=== PATIENT | male | born 1960 | race Caucasian/White ===

== ENCOUNTER 2020-10-05 14:21 | Outpatient (REF) | payer OTHER, SELFPAY ==
[2020-10-05 15:16] LABS: Influenza A PCR NEGATIVE (Negative); Influenza B PCR NEGATIVE (Negative); Resp Syncy Virus RNA Qual PCR NEGATIVE (Negative); SARS COV2 PCR INHOUSE NEGATIVE (Negative)
== END 2020-10-05 14:22 | disposition home or self-care (01) ==
LOC: HO.LNP 14:21
PROVIDERS: Visit Provider Internal Medicine
DX: R05 Cough (principal); R09.89 Other specified symptoms and signs involving the circulatory and respiratory systems; Z20.822 Contact with and (suspected) exposure to COVID-19
CPT/HCPCS: 0241U

== ENCOUNTER 2020-10-06 09:30 | Outpatient (REF) | payer OTHER, SELFPAY ==
[2020-10-06 10:07] LABS: MANUAL DIFF FLAG NO
[2020-10-06 10:12] LABS: Basophils Absolute Auto 0.1 X10*3/uL (0.0-0.2); Basophils Percent Auto 0.7 % (0-2); Eosinophils Absolute Auto 0.4 X10*3/uL (0.0-0.4); Hematocrit 48.3 % (42-52); Hemoglobin 16.4 g/dl (14.0-18.0); Imm Gran Abs Auto 0.02 X10*3/uL (0.00-0.03); Imm Gran Pct Auto 0.3 % (0.0-0.4); Lymphocytes Absolute Auto 1.8 X10*3/uL (1.2-4.9); Lymphocytes Percent Auto 24.8 % (20-40); Mean Corpuscular Hemoglobin 29.9 pg (27.0-33.0); Mean Platelet Volume 9.9 fL (9.4-12.4); Monocytes Absolute Auto 0.6 X10*3/uL (0.1-1.2); Monocytes Percent Auto 7.9 % (2-11); Neutrophils Absolute Auto 4.3 X10*3/uL (2.0-8.3); Neutrophils Percent Auto 60.3 % (45-73); Platelet Count 259 X10*3/uL (160-400); Red Blood Count 5.49 X10*6/uL (4.60-5.80); Red Cell Distribution Width 12.4 % (11.0-16.0); White Blood Count 7.1 X10*3/uL (4.8-10.8)
[2020-10-06 10:42] LABS: Alanine Aminotransferase 26 U/L (0-40); Albumin Level 4.9 g/dL (3.5-5.0); Alkaline Phosphatase 58 U/L (39-117); Anion Gap 14 (12-20); Aspartate Amino Transferase 19 U/L (5-37); Bilirubin Total 0.5 mg/dL (0.0-1.0); Blood Urea Nitrogen 14 mg/dL (9-16); Calcium 9.1 mg/dL (8.4-10.2); Carbon Dioxide 27 mmol/L (22-29); Chloride 103 mmol/L (96-108); Cholesterol 323 mg/dL; Estimated Glomerular Filt Rate > 60; Glucose Fasting 131 mg/dL (60-99); HDL Cholesterol 38 mg/dL; LDL Cholesterol Calculated 221 mg/dl; Potassium 4.6 mmol/l (3.3-5.1); Sodium 139 mmol/L (135-145); Total Protein 7.4 g/dL (6.5-8.0); Triglycerides 322 mg/dL
[2020-10-06 11:02] LABS: Prostate Specific Antigen 1.39 ng/mL (<0.05-4.0)
== END 2020-10-06 09:31 | disposition home or self-care (01) ==
LOC: HO.LAB 09:30
PROVIDERS: PCP Internal Medicine; Visit Provider Internal Medicine
DX: Z00.00 Encounter for general adult medical examination without abnormal findings (principal); Z12.5 Encounter for screening for malignant neoplasm of prostate
CPT/HCPCS: 36415; 80053; 80061; 84153; 85025

== ENCOUNTER → 2020-12-30 12:43 | Outpatient (BNVA) | payer OTHER, SELFPAY | PROVIDERS: PCP Internal Medicine; Visit Provider Surgery ==

== ENCOUNTER 2021-01-06 13:23 | Outpatient (REF) | payer OTHER, SELFPAY ==
--- NOTE | ~2021-01-06 | US_ITS ---
EXAMINATION: US right inguinal region, soft tissue. CLINICAL INFORMATION: Pain, strain COMPARISON: None available at the time of this dictation. TECHNIQUE: High-frequency linear transducer ultrasound utilized, area of interest scanned, right inguinal region. FINDINGS: No ultrasound evidence of soft tissue mass, cyst or abscess, or abnormal distortion. Patient had a mesh from prior hernia repair. US/US pelvic limited IMPRESSION: No ultrasound evidence of hernia recurrence. Ultrasound has limited role assessing muscles, MRI could be utilized to assess for possible muscle strain if clinically indicated.
== END 2021-01-06 13:24 | disposition home or self-care (01) ==
LOC: HO.US 13:23
PROVIDERS: PCP Internal Medicine; Visit Provider Surgery
DX: S39.011A Strain of muscle, fascia and tendon of abdomen, initial encounter (principal)
CPT/HCPCS: 76857

== ENCOUNTER 2021-05-16 10:04 | Outpatient (REF) | payer OTHER, SELFPAY ==
[2021-05-16 12:55] LABS: MANUAL DIFF FLAG NO
[2021-05-16 13:10] LABS: Glucose Urine UA NEG (NEG); Leukocyte Esterase Urine NEG (NEG); Nitrite Urine NEG (NEG); Urine Blood NEG (NEG); Urine Ketones NEG (NEG); Urine Protein NEG (NEG-TRACE)
[2021-05-16 13:13] LABS: Appearance Urine CLEAR; Color Urine YELLOW
[2021-05-16 13:14] LABS: Basophils Absolute Auto 0.1 X10*3/uL (0.0-0.2); Eosinophils Absolute Auto 0.4 X10*3/uL (0.0-0.4); Eosinophils Percent Auto 6.5 % (0-4); Hematocrit 43.9 % (42-52); Hemoglobin 15.1 g/dl (14.0-18.0); Imm Gran Abs Auto 0.03 X10*3/uL (0.00-0.03); Imm Gran Pct Auto 0.5 % (0.0-0.4); Lymphocytes Percent Auto 31.8 % (20-40); Mean Corpuscular HGB Conc 34.4 g/dl (31.0-36.0); Mean Corpuscular Hemoglobin 29.7 pg (27.0-33.0); Mean Corpuscular Volume 86.4 fL (80-98); Mean Platelet Volume 10.8 fL (9.4-12.4); Monocytes Absolute Auto 0.4 X10*3/uL (0.1-1.2); Monocytes Percent Auto 6.7 % (2-11); Neutrophils Absolute Auto 3.4 X10*3/uL (2.0-8.3); Neutrophils Percent Auto 53.5 % (45-73); Platelet Count 241 X10*3/uL (160-400); Red Blood Count 5.08 X10*6/uL (4.60-5.80); Red Cell Distribution Width 12.5 % (11.0-16.0); White Blood Count 6.3 X10*3/uL (4.8-10.8)
[2021-05-16 13:45] LABS: Alanine Aminotransferase 21 U/L (0-40); Albumin Level 4.5 g/dL (3.5-5.0); Alkaline Phosphatase 46 U/L (39-117); Anion Gap 14 (12-20); Aspartate Amino Transferase 18 U/L (5-37); Bilirubin Total 0.6 mg/dL (0.0-1.0); Blood Urea Nitrogen 15 mg/dL (9-16); Calcium 9.1 mg/dL (8.4-10.2); Carbon Dioxide 23 mmol/L (22-29); Chloride 108 mmol/L (96-108); Cholesterol 303 mg/dL; Estimated Glomerular Filt Rate > 60; Glucose Random 121 mg/dL (60-115); HDL Cholesterol 35 mg/dL; Lipase 24 U/L (8-78); Potassium 4.4 mmol/L (3.3-5.1); Sodium 141 mmol/L (135-145); Total Protein 6.9 g/dL (6.5-8.0); Triglycerides 430 mg/dL
== END 2021-05-16 10:05 | disposition home or self-care (01) ==
LOC: HO.LAB 10:04
PROVIDERS: PCP Internal Medicine; Visit Provider Internal Medicine
DX: I10 Essential (primary) hypertension (principal); R14.0 Abdominal distension (gaseous); R63.5 Abnormal weight gain; E78.5 Hyperlipidemia, unspecified
CPT/HCPCS: 36415; 80053; 80061; 81003; 83690; 84443; 85025

== ENCOUNTER 2021-06-27 16:07 | Outpatient (REF) | payer OTHER, SELFPAY ==
--- NOTE | ~2021-06-27 | XR_ITS ---
EXAMINATION: XR LUMBOSACRAL SPINE CLINICAL INFORMATION: Left sciatic pain COMPARISON: Previous x-ray November 2013 TECHNIQUE: Three views of the lumbosacral spine. FINDINGS: Bone alignment is normal. No fracture or dislocation is seen. There is degenerative disc disease at L5-S1. There is lower lumbar spine facet arthritis. There is spondylosis of the visualized lower thoracic spine. XR/XR lumbar spine 2-3V IMPRESSION: L5-S1 degenerative disc disease and lower lumbar spine facet arthritis
== END 2021-06-27 16:08 | disposition home or self-care (01) ==
LOC: HO.XRAY 16:07
PROVIDERS: PCP Internal Medicine; Visit Provider Internal Medicine
DX: M54.9 Dorsalgia, unspecified (principal)
CPT/HCPCS: 72100

== ENCOUNTER 2021-11-01 23:27 | Emergency (ER) | payer OTHER, SELFPAY ==
--- NOTE | ~2021-11-01 | CT_ITS ---
EXAMINATION: CT ANGIOGRAM OF THE CHEST; CT ANGIOGRAM OF THE ABDOMEN AND PELVIS INDICATION: Chest and abdominal pain, nausea/vomiting COMPARISON: None TECHNIQUE: 100 mL Omnipaque 350 IV contrast was utilized. Multidetector helical imaging was performed through the chest, abdomen, and pelvis. Coronal and sagittal reformatted images were created at the technologist workstation along with MIP images. DLP: 806 mGy-cm DOSE LOWERING TECHNIQUES: This CT examination was performed using dose optimization techniques as appropriate, variously including the following: - Automated exposure control - Adjustment of mA and/or kV according to patient size (this includes techniques or standardized protocols for targeted exams were dose is matched to indication/reason for exam; i.e. extremities or head) - Use of iterative reconstruction technique FINDINGS: Chest: There is suboptimal assessment of the proximal aorta due to motion artifact, though no suspicious findings are seen to strongly suggest aortic dissection. The thoracic aorta appears normal in caliber. Central pulmonary arteries appear opacified. No regions of consolidation bilaterally. There is a subpleural 4 mm right middle lobe nodule on image [id number]. No pneumothorax or pleural effusion. Visualized thyroid gland appears grossly unremarkable. There are subcentimeter mediastinal lymph nodes within the range of normal variation. Cardiac size is within normal limits; no pericardial effusion. Coronary artery calcifications are present. No axillary lymphadenopathy is present. Abdomen/Pelvis: The liver is homogeneous in attenuation without intrahepatic biliary ductal dilatation. The gallbladder is unremarkable. The spleen, pancreas, and adrenal glands are within normal limits. Bilateral nephrograms are symmetric. No hydronephrosis. No obstructing renal or ureteral calculi are present. The urinary bladder is unremarkable. The prostate and seminal vesicles are unremarkable. Small fat-containing left inguinal hernia. No evidence of bowel obstruction. There is a short segment of pericolonic inflammation adjacent to diverticula of the proximal sigmoid colon in the left lower quadrant, suspicious for diverticulitis. No pericolonic abscess or free air is seen. The appendix is unremarkable. No free fluid identified. The vascular structures are unremarkable, without evidence of aortic dissection or aneurysm. No retroperitoneal or pelvic lymphadenopathy is seen. Degenerative changes are noted in the spine. CT/CT angio abdomen pelvis IMPRESSION: 1. Diverticulitis of the proximal sigmoid colon. 2. No acute aortic abnormality. 3. Coronary artery calcifications. Correlation with cardiac risk factors is recommended. 4. Nonspecific 4 mm right middle lobe subpleural lung nodule. According to the UPDATED 2017 Fleischner Society recommendations, the advised follow-up imaging for solid nodules < 6 mm is: LOW RISK PATIENT: No routine follow-up. HIGH RISK PATIENT: Optional CT at 12 months.
[2021-11-01 23:31] VITALS: BP 145/84; PULSE 70; RESP 22; O2SAT 99; BMI 33.9
--- NOTE | 2021-11-01 23:33 | ECG_ITS ---
Test Reason : cp Blood Pressure : / mmHG Vent. Rate : 071 BPM Atrial Rate : 071 BPM P-R Int : 140 ms QRS Dur : 096 ms QT Int : 372 ms P-R-T Axes : 048 -24 034 degrees QTc Int : 404 ms Normal sinus rhythm Nonspecific ST and T wave abnormality Abnormal ECG When compared with ECG of 30-OCT-2002 09:54, Nonspecific T wave abnormality now evident in Anterolateral leads Referred By: Generic ED Physician Electronically Signed By:YASMINE MORRISON
[2021-11-02] VITALS (8 sets, daily range): BP systolic 132–147; BP diastolic 81–84; PULSE 70–82; RESP 16–24; O2SAT 97–99
--- NOTE | 2021-11-02 00:07 | ED_ITS ---
HPI - Chest Pain General Chief Complaint: Chest Pain <MATHIEU Garcia Last Filed: 11/02/21 01:51> Stated Complaint: Chest pain <MATHIEU Garcia Last Filed: 11/02/21 01:51> Time Seen by Provider: 11/01/21 23:45 <MATHIEU Garcia Last Filed: 11/02/21 01:51> Source: patient <MATHIEU Garcia Last Filed: 11/02/21 01:51> History of Present Illness HPI narrative: 61-year-old male with a past medical history of depression, hyperlipidemia, hypertension, presenting to the ED complaining of sudden onset and substernal chest pain radiating to back with associated abdominal pain/bloating, nausea, and 5 episodes of nonbloody emesis. Also reports bilateral arm weakness, and lightheadedness which is improving at present. Reports symptoms started at rest. Denies fever, chills, cough, SOB, diarrhea, pedal edema. Denies taking AC <MATHIEU Garcia - Last Filed: 11/02/21 01:51> MD complaint: chest pain <MATHIEU Garcia Last Filed: 11/02/21 01:51> Onset (ago): hour(s) <MATHIEU Garcia Last Filed: 11/02/21 01:51> Prior episodes: No <MATHIEU Garcia Last Filed: 11/02/21 01:51> Onset: during rest <MATHIEU Garcia Last Filed: 11/02/21 01:51> Pain location: substernal <MATHIEU Garcia Last Filed: 11/02/21 01:51> Related Data Home Medications: Home Medications Medication Instructions Recorded Confirmed atorvastatin 20 mg tablet (Lipitor) 20 mg PO DAILY 12/30/20 12/30/20 escitalopram oxalate 20 mg tablet 20 mg PO DAILY 12/30/20 12/30/20 (Lexapro) gemfibrozil 600 mg tablet 600 mg PO DAILY 12/30/20 12/30/20 lisinopril 10 mg tablet 10 mg PO DAILY 12/30/20 12/30/20 Previous Rx's Medication Instructions Recorded ciprofloxacin HCl 500 mg tablet 500 mg PO BID 7 Days #14 tab 11/02/21 (Cipro) metoclopramide HCl 10 mg tablet 10 mg PO Q6H PRN #10 tab 11/02/21 (Reglan) metronidazole 500 mg tablet 500 mg PO Q8H 7 Days #21 tab 11/02/21 <MATHIEU Garcia - Last Filed: 11/02/21 01:51> Allergies/Adverse Reactions: Allergies Allergy/AdvReac Type Severity Reaction Status Date / Time From PERCOCET AdvReac Mild N/V Uncoded 06/17/20 15:08 <MATHIEU Garcia - Last Filed: 11/02/21 01:51> Review of Systems Verdana 4l Review of Systems: Verdana 4d Verdana 4d Constitutional:No Fever, No Chills, No Fatigue, No Malaise ENT/Mouth: No Ear Pain, No Nasal Congestion, No Hoarseness, No sore throat, No Rhinorrhea, No Swallowing Difficulty Eyes: No Eye Pain, No Swelling, No Redness, No Vision Changes CardiovascularCardiovascular: + Chest Pain, No SOB, No Edema, No Palpitations Respiratory: No Cough, No Smoke Exposure, No Dyspnea Gastrointestinal: + Nausea, + Vomiting, No Diarrhea, No Constipation, + Abdominal pain Genitourinary: No Dysuria, No Urinary Frequency, No Hematuria, No Flank Pain Musculoskeletal: +back pain, No Myalgias, No Joint Swelling Skin: No Skin Lesions, No rash Neuro: + Weakness, No Numbness, No Paresthesias, No Loss of Consciousness, + lightheadedness/ Dizziness, No Headache <MATHIEU Garcia - Last Filed: 11/02/21 01:51> Yes all other systems are reviewed and are negative <MATHIEU Garcia - Last Filed: 11/02/21 01:51> FOR[facility]LY [facility] Past Medical History Attestation statement: The following information was validated with the patient. <MATHIEU Garcia Last Filed: 11/02/21 01:51> Medical History: Medical History Depression Hypercholesteremia Hypertension <MATHIEU Garcia Last Filed: 11/02/21 01:51> Surgical History: Surgical History History of elbow surgery History of right inguinal hernia repair <MATHIEU Garcia - Last Filed: 11/02/21 01:51> Family History Family History: Family History Father Bladder cancer Myocardial infarct Paternal Grandmother Myocardial infarct <MATHIEU Garcia - Last Filed: 11/02/21 01:51> Social History Social History: Social History Alcohol intake: never Patient Tobacco Use Status: Never used Tobacco Smoked in Last 30 Days: No Use of substances other than those prescribed or required for medical reasons: No Advance Directives: No <MATHIEU Garcia - Last Filed: 11/02/21 01:51> Physical Exam Verdana 4l Vital Signs: Verdana 4d Verdana 4d Vital Signs: Verdana 4d Verdana 4Bd Last Vital Signs Verdana 4d [employer] 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 Pulse 82 11/02/21 03:23 [employer] New 4d Resp 16 11/02/21 03:23 [employer]uttle [employer] New 4d BP 132/81 11/02/21 03:23 Pulse Ox 97 11/02/21 03:23 BMI result Body Mass Index 33.9 <MATHIEU Garcia - Last Filed: 11/02/21 01:51> Vital Signs: Last Vital Signs Pulse 82 11/02/21 03:23 Resp 16 11/02/21 03:23 BP 132/81 11/02/21 03:23 Pulse Ox 97 11/02/21 03:23 BMI result Body Mass Index 33.9 <Julia Craft MD - Last Filed: 11/02/21 03:52> Const: Other: pale <MATHIEU Garcia - Last Filed: 11/02/21 01:51> General: cooperative and anxious <MATHIEU Garcia - Last Filed: 11/02/21 01:51> Nutritional Appearance: overweight <MATHIEU Garcia - Last Filed: 11/02/21 01:51> Orientation/consciousness: patient oriented x3 <MATHIEU Garcia - Last Filed: 11/02/21 01:51> Limitations: no limitations <Keke Careydilia PA - Last Filed: 11/02/21 01:51> HENMT: Head: Yes normal to inspection and Yes atraumatic <Kekerosa maria Careydilia PA - Last Filed: 11/02/21 01:51> Ears: hearing grossly normal bilaterally <Keke Aureliodilia NC - Last Filed: 11/02/21 01:51> General nose exam: Normal external nose present <Keke Aureliodilia PA - Last Filed: 11/02/21 01:51> Face and sinus: Yes normal facial exam <Keke Aureliodilia NC - Last Filed: 11/02/21 01:51> Eyes: General: appearance normal, both eyes and all related structures <Keke Aureliodilia NC - Last Filed: 11/02/21 01:51> EOM: EOMs intact bilaterally <Keke Aureliodilia NC - Last Filed: 11/02/21 01:51> Neck: Neck: Yes normal visual inspection and Yes no meningeal signs <Keke Aureliodilia PA - Last Filed: 11/02/21 01:51> Resp: Effort & Inspection: normal respiratory effort <Keke Aureliodilia PA - Last Filed: 11/02/21 01:51> Auscultation: clear to auscultation bilaterally, no rales, no rhonchi and no wheezes <Keke Aureliodilia PA - Last Filed: 11/02/21 01:51> Cardio: Rate: regular rate <Keke Aureliodilia PA - Last Filed: 11/02/21 01:51> Heart sounds: S1 normal heart sound present and S2 normal heart sound present <Keke Aureliodilia PA - Last Filed: 11/02/21 01:51> Peripheral pulses: Peripheral pulses 2+ throughout <Keke Aureliodilia PA - Last Filed: 11/02/21 01:51> GI: Inspection: Yes normal to inspection <Keke Aureliodilia PA - Last Filed: 11/02/21 01:51> Palpation (GI): Soft to palpation, Tenderness to palpation present (GI) (diffusely) in the RLQ and in the LUQ, no guarding and not rigid <MATHIEU Garcia - Last Filed: 11/02/21 01:51> : General: Yes no CVA tenderness <MATHIEU Garcia - Last Filed: 11/02/21 01:51> Back/Spine/Pelvis: Back: no CVA tenderness <Keke Vasquez PA - Last Filed: 11/02/21 01:51> Skin: Rashes: no rashes <Keke Vasquez PA - Last Filed: 11/02/21 01:51> Wounds: no wounds <Keke Vasquez PA - Last Filed: 11/02/21 01:51> Neuro: General: patient oriented x3, tone normal, moves all extremities and no meningeal signs <MATHIEU Garcia - Last Filed: 11/02/21 01:51> Cognition (Neuro): normal cognition <MATHIEU Garcia - Last Filed: 11/02/21 01:51> Gait exam (Neuro): Normal gait present <MATHIEU Garcia - Last Filed: 11/02/21 01:51> Extrem: General: Yes normal to inspection and Yes no pedal edema <MATHIEU Garcia - Last Filed: 11/02/21 01:51> Course Course Course Narrative: -1328--no leukocytosis. H&H stable. Labs otherwise unremarkable. Initial troponin negative > obtain 3 hour repeat -0132--CT angio chest aorta / CT angio abdomen pelvis IMPRESSION: 1.? Diverticulitis of the proximal sigmoid colon. 2.? No acute aortic abnormality. 3.? Coronary artery calcifications. Correlation with cardiac risk factors is recommended. 4.? Nonspecific 4 mm right middle lobe subpleural lung nodule. According to the UPDATED 2017 Fleischner Society recommendations, the advised follow-up imaging for solid nodules < 6 mm is: ?? LOW RISK PATIENT: No routine follow-up. ?? HIGH RISK PATIENT: Optional CT at 12 months. > infection now suspected. Low concern for severe sepsis. Will obtain lacti c/blood cultures. Will give dose of IV Levaquin and Flagyl. -0150--on re-evaluation patient is sleeping comfortably, reports symptomatic improvement after pain medication. Results discussed. -0200--ED care transferred to Dr. Craft pending repeat troponin at 3:30AM, UA, lactic/cultures, re-evaluation/p.o. challenge <MATHIEU Garcia - Last Filed: 11/02/21 01:51> Reevaluation(s) Reevaluation #1: Patient feeling better, no chest pain or shortness of breath, troponin 2. Negative EKG: Normal sinus rhythm, heart rate 71, no ST segment depression or elevation, no T-wave inversion. QTC 404 <Julia Craft MD - Last Filed: 11/02/21 03:52> MDM - Chest Pain MDM Narrative Medical decision making narrative: 61-year-old male with a past medical history of depression, hyperlipidemia, hypertension, presenting to the ED complaining of sudden onset and substernal chest pain radiating to back with associated abdominal pain/bloating, nausea, and 5 episodes of nonbloody emesis. On exam tachypneic, pale, anxious, lungs CTA, abdomen soft diffusely tender, no rebound or guarding. No appreciable weakness, pulses equal and intact throughout. Concern for dissection vs AAA vs ACS vs intra-abdominal pathology including pancreatitis/appendicitis/cholecystitis Plan: EKG, labs, UA, CT chest/abdomen angio, pain control, re-evaluate <MATHIEU Garcia - Last Filed: 11/02/21 01:51> Differential Diagnosis Differential diagnosis: Likely atypical chest pain <MATHIEU Garcia - Last Filed: 11/02/21 01:51> Medical Records Data Attestation: I reviewed the patient's medical records. <MATHIEU Garcia - Last Filed: 11/02/21 01:51> Lab Data Attestation: I reviewed the patient's lab results. <MATHIEU Garcia - Last Filed: 11/02/21 01:51> Result diagrams: : 11/02/21 00:34 11/02/21 00:34 <MATHIEU Garcia - Last Filed: 11/02/21 01:51> Labs: Lab Results 11/02/21 11/02/21 11/02/21 Range/Units 00:34 00:34 00:34 WBC 10.6 (4.8-10.8) X10*3/uL RBC 4.80 (4.60-5.80) X10*6/uL Hgb 14.0 (14.0-18.0) g/dl Hct 40.3 L (42.0-52.0) % MCV 84.0 (80.0-98.0) fL MCH 29.2 (27.0-33.0) pg MCHC 34.7 (31.0-36.0) g/dl RDW 12.4 (11.0-16.0) % Plt Count 294 (160-400) X10*3/uL MPV 9.4 (9.4-12.4) fL Immature Gran % (Auto) 0.2 (0.0-0.4) % Neut % (Auto) 82.9 H (45-73) % Lymph % (Auto) 12.0 L (20-40) % [place] % (Auto) 3.9 (2-11) % Eos % (Auto) 0.5 (0-4) % Baso % (Auto) 0.5 (0-2) % Lymph # (Auto) 1.3 (1.2-4.9) X10*3/uL [place] # (Auto) 0.4 (0.1-1.2) X10*3/uL Eos # (Auto) 0.1 (0.0-0.4) X10*3/uL Baso # (Auto) 0.1 (0.0-0.2) X10*3/uL Abs Immat Gran (auto) 0.02 (0.00-0.03) X10*3/uL Absolute Neuts (auto) 8.8 H (2.0-8.3) x10*3/uL Absolute Nucleated RBC 0.000 (0.0-0.012) X10*3/uL Nucleated RBC % (auto) 0.0 (0.0-0.2) /100WBC PT (9.9-13.0) SEC INR (0.9-1.1) APTT (24.1-38.0) SEC Sodium 136 (135-145) mmol/L Potassium 3.6 (3.3-5.1) mmol/L Chloride 104 (96-108) mmol/L Carbon Dioxide 21 L (22-29) mmol/L Anion Gap 15 (12-20) BUN 16 (9-16) mg/dL Creatinine 1.01 (0.5-1.4) mg/dL Estim Creat Clear Calc 102.3 Estimated GFR > 60 Random Glucose 187 H D (60-115) mg/dL Lactic Acid (0.5-2.0) mmol/L Calcium 9.3 (8.4-10.2) mg/dL Magnesium 2.2 (1.6-2.6) mg/dL Total Bilirubin 0.5 (0.0-1.0) mg/dL Direct Bilirubin 0.2 (0.0-0.5) mg/dL AST 16 (5-37) U/L ALT 18 (0-40) U/L Alkaline Phosphatase 50 (39-117) U/L Troponin I High Sens < 3.5 (<3.5-35.0) ng/L B-Natriuretic Peptide < 10 (<100) pg/mL Total Protein 6.8 (6.5-8.0) g/dL Albumin 4.4 (3.5-5.0) g/dL Lipase 29 (8-78) U/L Urine Color Urine Appearance Urine pH (5.0-8.0) Ur Specific Reading (1.005-1.025) Urine Protein (NEG-TRACE) MG/DL Urine Glucose (UA) (NEG) MG/DL Urine Ketones (NEG) MG/DL Urine Blood (NEG) Urine Nitrite (NEG) Ur Leukocyte Esterase (NEG) COVID-19 (MAY) (Negative) COVID-19 Clin Com Blood Type Antibody Screen 11/02/21 11/02/21 11/02/21 Range/Units 00:34 00:34 01:01 WBC (4.8-10.8) X10*3/uL RBC (4.60-5.80) X10*6/uL Hgb (14.0-18.0) g/dl Hct (42.0-52.0) % MCV (80.0-98.0) fL MCH (27.0-33.0) pg MCHC (31.0-36.0) g/dl RDW (11.0-16.0) % Plt Count (160-400) X10*3/uL MPV (9.4-12.4) fL Immature Gran % (Auto) (0.0-0.4) % Neut % (Auto) (45-73) % Lymph % (Auto) (20-40) % [place] % (Auto) (2-11) % Eos % (Auto) (0-4) % Baso % (Auto) (0-2) % Lymph # (Auto) (1.2-4.9) X10*3/uL [place] # (Auto) (0.1-1.2) X10*3/uL Eos # (Auto) (0.0-0.4) X10*3/uL Baso # (Auto) (0.0-0.2) X10*3/uL Abs Immat Gran (auto) (0.00-0.03) X10*3/uL Absolute Neuts (auto) (2.0-8.3) x10*3/uL Absolute Nucleated RBC (0.0-0.012) X10*3/uL Nucleated RBC % (auto) (0.0-0.2) /100WBC PT 12.4 (9.9-13.0) SEC INR 1.1 (0.9-1.1) APTT 34.2 (24.1-38.0) SEC Sodium (135-145) mmol/L Potassium (3.3-5.1) mmol/L Chloride (96-108) mmol/L Carbon Dioxide (22-29) mmol/L Anion Gap (12-20) BUN (9-16) mg/dL Creatinine (0.5-1.4) mg/dL Estim Creat Clear Calc Estimated GFR Random Glucose (60-115) mg/dL Lactic Acid (0.5-2.0) mmol/L Calcium (8.4-10.2) mg/dL Magnesium (1.6-2.6) mg/dL Total Bilirubin (0.0-1.0) mg/dL Direct Bilirubin (0.0-0.5) mg/dL AST (5-37) U/L ALT (0-40) U/L Alkaline Phosphatase (39-117) U/L Troponin I High Sens (<3.5-35.0) ng/L B-Natriuretic Peptide (<100) pg/mL Total Protein (6.5-8.0) g/dL Albumin (3.5-5.0) g/dL Lipase (8-78) U/L Urine Color Urine Appearance Urine pH (5.0-8.0) Ur Specific Reading (1.005-1.025) Urine Protein (NEG-TRACE) MG/DL Urine Glucose (UA) (NEG) MG/DL Urine Ketones (NEG) MG/DL Urine Blood (NEG) Urine Nitrite (NEG) Ur Leukocyte Esterase (NEG) COVID-19 (MAY) Negative (Negative) COVID-19 Clin Com See Note Blood Type O Positive Antibody Screen NEGATIVE 11/02/21 11/02/21 11/02/21 Range/Units 02:03 02:34 02:34 WBC (4.8-10.8) X10*3/uL RBC (4.60-5.80) X10*6/uL Hgb (14.0-18.0) g/dl Hct (42.0-52.0) % MCV (80.0-98.0) fL MCH (27.0-33.0) pg MCHC (31.0-36.0) g/dl RDW (11.0-16.0) % Plt Count (160-400) X10*3/uL MPV (9.4-12.4) fL Immature Gran % (Auto) (0.0-0.4) % Neut % (Auto) (45-73) % Lymph % (Auto) (20-40) % [place] % (Auto) (2-11) % Eos % (Auto) (0-4) % Baso % (Auto) (0-2) % Lymph # (Auto) (1.2-4.9) X10*3/uL [place] # (Auto) (0.1-1.2) X10*3/uL Eos # (Auto) (0.0-0.4) X10*3/uL Baso # (Auto) (0.0-0.2) X10*3/uL Abs Immat Gran (auto) (0.00-0.03) X10*3/uL Absolute Neuts (auto) (2.0-8.3) x10*3/uL Absolute Nucleated RBC (0.0-0.012) X10*3/uL Nucleated RBC % (auto) (0.0-0.2) /100WBC PT (9.9-13.0) SEC INR (0.9-1.1) APTT (24.1-38.0) SEC Sodium (135-145) mmol/L Potassium (3.3-5.1) mmol/L Chloride (96-108) mmol/L Carbon Dioxide (22-29) mmol/L Anion Gap (12-20) BUN (9-16) mg/dL Creatinine (0.5-1.4) mg/dL Estim Creat Clear Calc Estimated GFR Random Glucose (60-115) mg/dL Lactic Acid 0.9 (0.5-2.0) mmol/L Calcium (8.4-10.2) mg/dL Magnesium (1.6-2.6) mg/dL Total Bilirubin (0.0-1.0) mg/dL Direct Bilirubin (0.0-0.5) mg/dL AST (5-37) U/L ALT (0-40) U/L Alkaline Phosphatase (39-117) U/L Troponin I High Sens < 3.5 (<3.5-35.0) ng/L B-Natriuretic Peptide (<100) pg/mL Total Protein (6.5-8.0) g/dL Albumin (3.5-5.0) g/dL Lipase (8-78) U/L Urine Color YELLOW Urine Appearance CLEAR Urine pH 7.0 (5.0-8.0) Ur Specific Reading <= 1.005 (1.005-1.025) Urine Protein NEG (NEG-TRACE) MG/DL Urine Glucose (UA) NEG (NEG) MG/DL Urine Ketones 5 (NEG) MG/DL Urine Blood NEG (NEG) Urine Nitrite NEG (NEG) Ur Leukocyte Esterase NEG (NEG) COVID-19 (MAY) (Negative) COVID-19 Clin Com Blood Type Antibody Screen <MATHIEU Garcia - Last Filed: 11/02/21 01:51> Lab Results 11/02/21 11/02/21 11/02/21 Range/Units 00:34 00:34 00:34 WBC 10.6 (4.8-10.8) X10*3/uL RBC 4.80 (4.60-5.80) X10*6/uL Hgb 14.0 (14.0-18.0) g/dl Hct 40.3 L (42.0-52.0) % MCV 84.0 (80.0-98.0) fL MCH 29.2 (27.0-33.0) pg MCHC 34.7 (31.0-36.0) g/dl RDW 12.4 (11.0-16.0) % Plt Count 294 (160-400) X10*3/uL MPV 9.4 (9.4-12.4) fL Immature Gran % (Auto) 0.2 (0.0-0.4) % Neut % (Auto) 82.9 H (45-73) % Lymph % (Auto) 12.0 L (20-40) % [place] % (Auto) 3.9 (2-11) % Eos % (Auto) 0.5 (0-4) % Baso % (Auto) 0.5 (0-2) % Lymph # (Auto) 1.3 (1.2-4.9) X10*3/uL [place] # (Auto) 0.4 (0.1-1.2) X10*3/uL Eos # (Auto) 0.1 (0.0-0.4) X10*3/uL Baso # (Auto) 0.1 (0.0-0.2) X10*3/uL Abs Immat Gran (auto) 0.02 (0.00-0.03) X10*3/uL Absolute Neuts (auto) 8.8 H (2.0-8.3) x10*3/uL Absolute Nucleated RBC 0.000 (0.0-0.012) X10*3/uL Nucleated RBC % (auto) 0.0 (0.0-0.2) /100WBC PT (9.9-13.0) SEC INR (0.9-1.1) APTT (24.1-38.0) SEC Sodium 136 (135-145) mmol/L Potassium 3.6 (3.3-5.1) mmol/L Chloride 104 (96-108) mmol/L Carbon Dioxide 21 L (22-29) mmol/L Anion Gap 15 (12-20) BUN 16 (9-16) mg/dL Creatinine 1.01 (0.5-1.4) mg/dL Estim Creat Clear Calc 102.3 Estimated GFR > 60 Random Glucose 187 H D (60-115) mg/dL Lactic Acid (0.5-2.0) mmol/L Calcium 9.3 (8.4-10.2) mg/dL Magnesium 2.2 (1.6-2.6) mg/dL Total Bilirubin 0.5 (0.0-1.0) mg/dL Direct Bilirubin 0.2 (0.0-0.5) mg/dL AST 16 (5-37) U/L ALT 18 (0-40) U/L Alkaline Phosphatase 50 (39-117) U/L Troponin I High Sens < 3.5 (<3.5-35.0) ng/L B-Natriuretic Peptide < 10 (<100) pg/mL Total Protein 6.8 (6.5-8.0) g/dL Albumin 4.4 (3.5-5.0) g/dL Lipase 29 (8-78) U/L Urine Color Urine Appearance Urine pH (5.0-8.0) Ur Specific Reading (1.005-1.025) Urine Protein (NEG-TRACE) MG/DL Urine Glucose (UA) (NEG) MG/DL Urine Ketones (NEG) MG/DL Urine Blood (NEG) Urine Nitrite (NEG) Ur Leukocyte Esterase (NEG) COVID-19 (MAY) (Negative) COVID-19 Clin Com Blood Type Antibody Screen 11/02/21 11/02/21 11/02/21 Range/Units 00:34 00:34 01:01 WBC (4.8-10.8) X10*3/uL RBC (4.60-5.80) X10*6/uL Hgb (14.0-18.0) g/dl Hct (42.0-52.0) % MCV (80.0-98.0) fL MCH (27.0-33.0) pg MCHC (31.0-36.0) g/dl RDW (11.0-16.0) % Plt Count (160-400) X10*3/uL MPV (9.4-12.4) fL Immature Gran % (Auto) (0.0-0.4) % Neut % (Auto) (45-73) % Lymph % (Auto) (20-40) % [place] % (Auto) (2-11) % Eos % (Auto) (0-4) % Baso % (Auto) (0-2) % Lymph # (Auto) (1.2-4.9) X10*3/uL [place] # (Auto) (0.1-1.2) X10*3/uL Eos # (Auto) (0.0-0.4) X10*3/uL Baso # (Auto) (0.0-0.2) X10*3/uL Abs Immat Gran (auto) (0.00-0.03) X10*3/uL Absolute Neuts (auto) (2.0-8.3) x10*3/uL Absolute Nucleated RBC (0.0-0.012) X10*3/uL Nucleated RBC % (auto) (0.0-0.2) /100WBC PT 12.4 (9.9-13.0) SEC INR 1.1 (0.9-1.1) APTT 34.2 (24.1-38.0) SEC Sodium (135-145) mmol/L Potassium (3.3-5.1) mmol/L Chloride (96-108) mmol/L Carbon Dioxide (22-29) mmol/L Anion Gap (12-20) BUN (9-16) mg/dL Creatinine (0.5-1.4) mg/dL Estim Creat Clear Calc Estimated GFR Random Glucose (60-115) mg/dL Lactic Acid (0.5-2.0) mmol/L Calcium (8.4-10.2) mg/dL Magnesium (1.6-2.6) mg/dL Total Bilirubin (0.0-1.0) mg/dL Direct Bilirubin (0.0-0.5) mg/dL AST (5-37) U/L ALT (0-40) U/L Alkaline Phosphatase (39-117) U/L Troponin I High Sens (<3.5-35.0) ng/L B-Natriuretic Peptide (<100) pg/mL Total Protein (6.5-8.0) g/dL Albumin (3.5-5.0) g/dL Lipase (8-78) U/L Urine Color Urine Appearance Urine pH (5.0-8.0) Ur Specific Reading (1.005-1.025) Urine Protein (NEG-TRACE) MG/DL Urine Glucose (UA) (NEG) MG/DL Urine Ketones (NEG) MG/DL Urine Blood (NEG) Urine Nitrite (NEG) Ur Leukocyte Esterase (NEG) COVID-19 (MAY) Negative (Negative) COVID-19 Clin Com See Note Blood Type O Positive Antibody Screen NEGATIVE 11/02/21 11/02/21 11/02/21 Range/Units 02:03 02:34 02:34 WBC (4.8-10.8) X10*3/uL RBC (4.60-5.80) X10*6/uL Hgb (14.0-18.0) g/dl Hct (42.0-52.0) % MCV (80.0-98.0) fL MCH (27.0-33.0) pg MCHC (31.0-36.0) g/dl RDW (11.0-16.0) % Plt Count (160-400) X10*3/uL MPV (9.4-12.4) fL Immature Gran % (Auto) (0.0-0.4) % Neut % (Auto) (45-73) % Lymph % (Auto) (20-40) % [place] % (Auto) (2-11) % Eos % (Auto) (0-4) % Baso % (Auto) (0-2) % Lymph # (Auto) (1.2-4.9) X10*3/uL [place] # (Auto) (0.1-1.2) X10*3/uL Eos # (Auto) (0.0-0.4) X10*3/uL Baso # (Auto) (0.0-0.2) X10*3/uL Abs Immat Gran (auto) (0.00-0.03) X10*3/uL Absolute Neuts (auto) (2.0-8.3) x10*3/uL Absolute Nucleated RBC (0.0-0.012) X10*3/uL Nucleated RBC % (auto) (0.0-0.2) /100WBC PT (9.9-13.0) SEC INR (0.9-1.1) APTT (24.1-38.0) SEC Sodium (135-145) mmol/L Potassium (3.3-5.1) mmol/L Chloride (96-108) mmol/L Carbon Dioxide (22-29) mmol/L Anion Gap (12-20) BUN (9-16) mg/dL Creatinine (0.5-1.4) mg/dL Estim Creat Clear Calc Estimated GFR Random Glucose (60-115) mg/dL Lactic Acid 0.9 (0.5-2.0) mmol/L Calcium (8.4-10.2) mg/dL Magnesium (1.6-2.6) mg/dL Total Bilirubin (0.0-1.0) mg/dL Direct Bilirubin (0.0-0.5) mg/dL AST (5-37) U/L ALT (0-40) U/L Alkaline Phosphatase (39-117) U/L Troponin I High Sens < 3.5 (<3.5-35.0) ng/L B-Natriuretic Peptide (<100) pg/mL Total Protein (6.5-8.0) g/dL Albumin (3.5-5.0) g/dL Lipase (8-78) U/L Urine Color YELLOW Urine Appearance CLEAR Urine pH 7.0 (5.0-8.0) Ur Specific Reading <= 1.005 (1.005-1.025) Urine Protein NEG (NEG-TRACE) MG/DL Urine Glucose (UA) NEG (NEG) MG/DL Urine Ketones 5 (NEG) MG/DL Urine Blood NEG (NEG) Urine Nitrite NEG (NEG) Ur Leukocyte Esterase NEG (NEG) COVID-19 (MAY) (Negative) COVID-19 Clin Com Blood Type Antibody Screen <Julia Craft MD - Last Filed: 11/02/21 03:52> ECG Data ECG #1: Attestation: I personally reviewed and interpreted this ECG as follows: <MATHIEU Garcia - Last Filed: 11/02/21 01:51> ECG interpretation date: 11/02/21 <MATHIEU Garcia - Last Filed: 11/02/21 01:51> ECG interpretation time: 23:28 <MATHIEU Garcia - Last Filed: 11/02/21 01:51> Prior ECG tracings: not available for review <MATHIEU Garcia - Last Filed: 11/02/21 01:51> Interpretation: EKG normal sinus rhythm at rate 71. Pr interval 140. QTC 404. No STEMI <MATHIEU Garcia Last Filed: 11/02/21 01:51> Critical Care Time Critical Care Time Critical Care Time: Yes <MATHIEU Garcia Last Filed: 11/02/21 01:51> Total Critical Care Time: 35 <MATHIEU Garcia Last Filed: 11/02/21 01:51> Attestation: I have personally provided critical care time exclusive of time spent on separately billable procedures. Time includes review of lab data, radiology results, discussion with consultants, and monitoring for potential decompensation. Intervention performed as documented. <MATHIEU Garcia Last Filed: 11/02/21 01:51> Discharge Plan Discharge Clinical Impression: Diverticulitis, Chest pain <MATHIEU Garcia Last Filed: 11/02/21 01:51> Patient Disposition: Home, Self-Care <MATHIEU Garcia Last Filed: 11/02/21 01:51> Instructions: Diverticulitis Diet (ED) <MATHIEU Garcia Last Filed: 11/02/21 01:51> Additional Instructions: You have diverticulitis. Cipro and Flagyl are antibiotics please take as prescribed. Please practice a clear liquid diet for the next 3 days If her symptoms persist or worsen, pain becomes constant/unbearable, you are unable to eat or drink, persistent nausea or vomiting return to the ED immediately Please follow-up with your doctor Angela is for nausea take as needed <MATHIEU Garcia Last Filed: 11/02/21 01:51> Prescriptions: New ciprofloxacin HCl [Cipro] 500 mg tablet 500 mg PO BID 7 Days Qty: 14 0RF metronidazole 500 mg tablet 500 mg PO Q8H 7 Days Qty: 21 0RF metoclopramide HCl [Reglan] 10 mg tablet 10 mg PO Q6H PRN (Reason: nausea and vomiting) Qty: 10 0RF No Action gemfibrozil 600 mg tablet 600 mg PO DAILY 0RF atorvastatin [Lipitor] 20 mg tablet 20 mg PO DAILY 0RF lisinopril 10 mg tablet 10 mg PO DAILY 0RF escitalopram oxalate [Lexapro] 20 mg tablet 20 mg PO DAILY 0RF <MATHIEU Garcia - Last Filed: 11/02/21 01:51> Referrals: Roger Oakley MD [Primary Care Provider] - 2 days <MATHIEU Garcia - Last Filed: 11/02/21 01:51>
[2021-11-02] MEDS: ondansetron HCL 4 MG/2 ML VIAL IVPUSH (00:28)
[2021-11-02] MEDS: fentaNYL citrate/PF 100 MCG/2 ML VIAL 50 MCG IVPUSH (00:28)
[2021-11-02] MEDS: 0.9 % Sodium Chloride 1,000 ML 999 ML IV (00:29)
[2021-11-02 00:39] LABS: MANUAL DIFF FLAG NO
[2021-11-02 00:42] LABS: Basophils Absolute Auto 0.1 X10*3/uL (0.0-0.2); Basophils Percent Auto 0.5 % (0-2); Eosinophils Absolute Auto 0.1 X10*3/uL (0.0-0.4); Eosinophils Percent Auto 0.5 % (0-4); Hematocrit 40.3 % (42.0-52.0); Imm Gran Abs Auto 0.02 X10*3/uL (0.00-0.03); Imm Gran Pct Auto 0.2 % (0.0-0.4); Lymphocytes Absolute Auto 1.3 X10*3/uL (1.2-4.9); Mean Corpuscular HGB Conc 34.7 g/dl (31.0-36.0); Mean Corpuscular Hemoglobin 29.2 pg (27.0-33.0); Mean Platelet Volume 9.4 fL (9.4-12.4); Monocytes Absolute Auto 0.4 X10*3/uL (0.1-1.2); Monocytes Percent Auto 3.9 % (2-11); Neutrophils Absolute Auto 8.8 x10*3/uL (2.0-8.3); Neutrophils Percent Auto 82.9 % (45-73); Platelet Count 294 X10*3/uL (160-400); Red Cell Distribution Width 12.4 % (11.0-16.0); White Blood Count 10.6 X10*3/uL (4.8-10.8)
[2021-11-02 00:48] LABS: INTERNATIONAL NORM RATIO 1.1 (0.9-1.1); Prothrombin Time 12.4 SEC (9.9-13.0)
[2021-11-02 00:50] LABS: Partial Thromboplastin Time 34.2 SEC (24.1-38.0)
[2021-11-02] MEDS: iohexoL 350 MG/ML 100 ML INFUS..BTL IV (00:53)
[2021-11-02 00:56] LABS: Alanine Aminotransferase 18 U/L (0-40); Albumin Level 4.4 g/dL (3.5-5.0); Alkaline Phosphatase 50 U/L (39-117); Anion Gap 15 (12-20); Aspartate Amino Transferase 16 U/L (5-37); Bilirubin Direct 0.2 mg/dL (0.0-0.5); Bilirubin Total 0.5 mg/dL (0.0-1.0); Blood Urea Nitrogen 16 mg/dL (9-16); Calcium 9.3 mg/dL (8.4-10.2); Carbon Dioxide 21 mmol/L (22-29); Chloride 104 mmol/L (96-108); Creatinine Clr Calc Pharmacy 102.3; Estimated Glomerular Filt Rate > 60; Glucose Random 187 mg/dL (60-115); Lipase 29 U/L (8-78); Magnesium 2.2 mg/dL (1.6-2.6); Potassium 3.6 mmol/L (3.3-5.1); Sodium 136 mmol/L (135-145); Total Protein 6.8 g/dL (6.5-8.0)
[2021-11-02 01:01] LABS: B Type Natriuretic Peptide < 10 pg/mL (<100); Troponin-I High Sensitivity < 3.5 ng/L (<3.5-35.0)
--- NOTE | 2021-11-02 01:02 | PC.NURSE ---
pt treated with zofran and fentanly for pain and vomiting. pt pain has resolved and no longer vomiting, pt called and ok to update. pt labs drawn and pending cta results. skin warm and dry, vitals stable.
[2021-11-02 01:22] LABS: COVID-19 Test Negative (Negative)
[2021-11-02 02:09] LABS: Appearance Urine CLEAR; Color Urine YELLOW; Glucose Urine UA NEG (NEG); Leukocyte Esterase Urine NEG (NEG); Nitrite Urine NEG (NEG); Specific Gravity - Urine <= 1.005 (1.005-1.025); Urine Blood NEG (NEG); Urine Ketones 5 MG/DL (NEG); Urine Protein NEG (NEG-TRACE)
[2021-11-02] MEDS: Ketorolac Tromethamine 30 MG/ML VIAL IVPUSH (02:43)
[2021-11-02] MEDS: levoFLOXacin/D5W 750 MG/150 ML PIGGYBACK 100 MG IV (02:43)
[2021-11-02] MEDS: metroNIDAZOLE/NS 500 MG/100 ML PIGGYBACK 100 MG IV (02:43)
[2021-11-02 02:52] LABS: Lactic Acid 0.9 mmol/L (0.5-2.0)
[2021-11-02 03:00] LABS: Troponin-I High Sensitivity < 3.5 ng/L (<3.5-35.0)
== END 2021-11-02 04:00 | disposition home or self-care (01) ==
PROVIDERS: Physician Assistant; Emergency Provider Emergency Medicine; PCP Internal Medicine
DX: R07.9 Chest pain, unspecified (principal); K57.32 Diverticulitis of large intestine without perforation or abscess without bleeding; Z20.822 Contact with and (suspected) exposure to COVID-19; I10 Essential (primary) hypertension; E78.5 Hyperlipidemia, unspecified; Z79.02 Long term (current) use of antithrombotics/antiplatelets
CPT/HCPCS: 36415; 71275; 74174; 80048; 80076; 81003; 83605; 83690; 83735; 83880; 84484; 85025; 85610; 85730; 86850; 86900; 86901; 87040; 87635; 93005; 96361; 96365; 96375; 99285; 99291; J1885; J1956; J2405; J3010; Q9967

== ENCOUNTER 2022-02-10 08:38 | Day surgery (SDC) | payer OTHER, SELFPAY ==
[2022-02-03 14:54] VITALS: BMI 34.2
--- NOTE | 2022-02-09 10:02 | P.CONAN_ITS ---
Documented by User: Donna King NP 02/09/22 10:03 HPI - Anesthesia Eval Consult details Narrative: 61yo M for Colonoscopy PMFSH Active Problems Active Problems: All Active Problems (Updated 02/03/22 @ 14:51 by Xiomara Duran, DELIA) Abdominal muscle strain (Acute) Depression (Acute) Hypertension (Acute) Hypercholesteremia (Acute) Past Medical History Medical History Depression Depression Diverticulitis Hypercholesteremia Hypertension Rotator cuff arthropathy of right shoulder Family History Family History Father Bladder cancer Myocardial infarct Paternal Grandmother Myocardial infarct Surgical History Surgical History H/O colonoscopy History of elbow surgery History of right inguinal hernia repair Social History Social History Alcohol intake: never Patient Tobacco Use Status: Never used Tobacco Use of substances other than those prescribed or required for medical reasons: No Are you DNR?: No Advance Directives: No Advance Directives Information Provided: Yes Recently lost weight without trying: No Meds Allergies Allergy/AdvReac Type Severity Reaction Status Date / Time acetaminophen [From Percocet] Allergy Nightmare Verified 02/10/22 09:07 oxycodone AdvReac Mild Nausea and Verified 02/03/22 14:50 Vomiting Home Medications Medication Instructions Recorded Confirmed Last Taken Type atorvastatin 20 mg tablet (Lipitor) 20 mg PO DAILY 12/30/20 02/03/22 Unknown History escitalopram oxalate 20 mg tablet 20 mg PO DAILY 12/30/20 02/03/22 Unknown History (Lexapro) gemfibrozil 600 mg tablet 600 mg PO DAILY 12/30/20 02/03/22 Unknown History aspirin 81 mg tablet,delayed 81 mg PO DAILY 02/03/22 02/03/22 Unknown History release losartan 25 mg tablet 1 tab PO DAILY 02/03/22 02/10/22 02/10/22 History Exam Exam Date and Time: February 09, 2022 1002 Height,Weight and Vital Signs: Height 6 ft Weight 114.305 kg Pertinent Lab Results Pertinent Lab Results: Laboratory Tests 11/02/21 11/02/21 00:34 00:34 WBC 10.6 Hgb 14.0 Hct 40.3 L Plt Count 294 Sodium 136 Potassium 3.6 Chloride 104 Carbon Dioxide 21 L BUN 16 Creatinine 1.01 Narrative Narrative: EKG 11/2021 Vent. Rate : 071 BPM ? ? Atrial Rate : 071 BPM ?? P-R Int : 140 ms? QRS Dur : 096 ms ? ? QT Int : 372 ms ? ? ? P-R-T Axes : 048 -24 034 degrees ?? QTc Int : 404 ms ? Normal sinus rhythm Nonspecific ST and T wave abnormality Abnormal ECG When compared with ECG of 30-OCT-2002 09:54, Nonspecific T wave abnormality now evident in Anterolateral leads Assessment and Plan Assessment Anesthesia Assessment: Chart Reviewed Documented by User: Charleen Clay MD 02/10/22 09:35 [facility] Past Medical History Medical History Depression Depression Diverticulitis Hypercholesteremia Hypertension Rotator cuff arthropathy of right shoulder Family History Family History Father Bladder cancer Myocardial infarct Paternal Grandmother Myocardial infarct Surgical History Surgical History H/O colonoscopy History of elbow surgery History of right inguinal hernia repair History of Problems with Anesthesia: No Social History Social History Alcohol intake: never Patient Tobacco Use Status: Never used Tobacco Use of substances other than those prescribed or required for medical reasons: No Are you DNR?: No Advance Directives: No Advance Directives Information Provided: Yes Recently lost weight without trying: No Meds Allergies Allergy/AdvReac Type Severity Reaction Status Date / Time acetaminophen [From Percocet] Allergy Nightmare Verified 02/10/22 09:07 oxycodone AdvReac Mild Nausea and Verified 02/03/22 14:50 Vomiting Home Medications Medication Instructions Recorded Confirmed Last Taken Type atorvastatin 20 mg tablet (Lipitor) 20 mg PO DAILY 12/30/20 02/03/22 Unknown History escitalopram oxalate 20 mg tablet 20 mg PO DAILY 12/30/20 02/03/22 Unknown History (Lexapro) gemfibrozil 600 mg tablet 600 mg PO DAILY 12/30/20 02/03/22 Unknown History aspirin 81 mg tablet,delayed 81 mg PO DAILY 02/03/22 02/03/22 Unknown History release losartan 25 mg tablet 1 tab PO DAILY 02/03/22 02/10/22 02/10/22 History Exam Airway Mallampati Class: III TM Dist: >3cm Neck ROM: Full Loose/Missing/Broken Teeth: No Heart: RRR Lungs: CTA Assessment and Plan Assessment Anesthesia Assessment: Anesthesia Plan Discussed Final Anesthetic Review History of Problems with Anesthesia: No NPO: Yes ASA Class: II Final Preanesthetic Review: Meds/Allgs Chart Reviewed, Consent Obtained/Reviewed and Anes Risks/Benef Reviewed Patient Risk: Low Procedure Risk: Low Anesthetic Plan Anesthetic Plan: MAC: Disposition: Standard PACU
[2022-02-10 08:59] VITALS: BMI 33.7
[2022-02-10 09:15] VITALS: BP 140/106; PULSE 73; RESP 16; TEMP 36.3; O2SAT 98
--- NOTE | 2022-02-10 09:31 | MHC.SHP ---
Pre-Procedural Eval Section A Date of Service: 02/10/22 The patient is an INPATIENT: No Changes since office visit: No Cold of Flu in the past 2 weeks, No New Medical Problems, No Changes in Medication and No Patient answered all questions The History & Physical has been completed within 30 days and I have reviewed it.: Yes Section B Chief Complaint: Diverticulitis of large intestine Allergies: Allergies Allergy/AdvReac Type Severity Reaction Status Date / Time acetaminophen [From Percocet] Allergy Nightmare Verified 02/10/22 09:07 oxycodone AdvReac Mild Nausea and Verified 02/03/22 14:50 Vomiting Plan I have reviewed the history and physical and performed a pertinent physical examination on my patient. No changes have occurred unless specified.
[2022-02-10] MEDS: Lactated Ringers 1,000 ML 100 ML IVCONT (09:38)
--- NOTE | 2022-02-10 10:09 | PM.OP ---
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
[2022-02-10 10:10] VITALS: BP 116/74; PULSE 77; RESP 18; TEMP 36.4; O2SAT 95
[2022-02-10 10:24] VITALS: BP 126/80; PULSE 68; RESP 18; TEMP 36.4; O2SAT 97
--- NOTE | 2022-02-10 21:18 | OP_ITS ---
SURGEON: Sumit Barnes MD INDICATIONS: Diverticulitis. PREOPERATIVE DIAGNOSIS: POSTOPERATIVE DIAGNOSIS: PROCEDURE PERFORMED: ESTIMATED BLOOD LOSS: COMPLICATIONS: ANESTHESIA: ASSISTANTS: SPECIMENS: PROCEDURE: Colonoscopy to the terminal ileum. MEDICATIONS: Monitored anesthesia care. DESCRIPTION OF PROCEDURE: History and physical performed. The risks and benefits of the procedure were explained to the patient. Informed consent was obtained. The patient was placed in left lateral decubitus position. A digital rectal exam was performed and was found to be normal. The Olympus pediatric video colonoscope was introduced into the rectum and advanced to the cecum without difficulty. The cecum was identified by transillumination, palpation, and identification of ileocecal valve. Examination was performed. The scope was removed. He tolerated the procedure well and was taken to recovery area in stable condition. FINDINGS: The terminal ileum was examined and appeared normal. The visualized colonic mucosa was normal. The quality of the prep was good. There was moderate diverticulosis involving the sigmoid with scattered diverticula in the remainder of the colon. There was no evidence of diverticulitis. Retroflexed examination showed small internal hemorrhoids. IMPRESSION: Diverticulosis. RECOMMENDATIONS: 1. Follow up as needed. 2. Repeat colonoscopy is recommended in 10 years for average risk individuals. MD TOÑITO Marquez/BERNA / [id number]
== END 2022-02-10 11:02 | disposition home or self-care (01) ==
PROVIDERS: PCP Internal Medicine; Visit Provider Internal Medicine Gastroenterology
PROC: 0DJD8ZZ Inspection of Lower Intestinal Tract, Via Natural or Artificial Opening Endoscopic (ICD-10-PCS; CPT 45378; principal; 2022-02-10 09:40)
DX: Z12.11 Encounter for screening for malignant neoplasm of colon (principal); Z87.19 Personal history of other diseases of the digestive system; K57.30 Diverticulosis of large intestine without perforation or abscess without bleeding; I10 Essential (primary) hypertension; K64.8 Other hemorrhoids; E78.5 Hyperlipidemia, unspecified; J30.2 Other seasonal allergic rhinitis; F32.9 Major depressive disorder, single episode, unspecified; Z79.899 Other long term (current) drug therapy; Z79.82 Long term (current) use of aspirin; Z88.8 Allergy status to other drugs, medicaments and biological substances
CPT/HCPCS: 45378

== ENCOUNTER 2022-07-11 07:12 | Outpatient (REF) | payer OTHER, SELFPAY ==
[2022-07-11 08:20] LABS: Estimated Average Glucose 117 mg/dL; Hemoglobin A1c % 5.7 %
[2022-07-11 08:38] LABS: Anion Gap 15 (12-20); Blood Urea Nitrogen 16 mg/dL (9-16); Calcium 9.6 mg/dL (8.4-10.2); Carbon Dioxide 28 mmol/L (22-29); Chloride 103 mmol/L (96-108); Estimated Glomerular Filt Rate > 60; Glucose Random 144 mg/dL (60-115); Potassium 5.2 mmol/L (3.3-5.1); Sodium 141 mmol/L (135-145)
== END 2022-07-11 07:13 | disposition home or self-care (01) ==
LOC: HO.LAB 07:12
PROVIDERS: PCP Internal Medicine; Visit Provider Internal Medicine
DX: R73.03 Prediabetes (principal)
CPT/HCPCS: 36415; 80048; 83036

== ENCOUNTER 2022-09-06 09:55 | Outpatient (REF) | payer OTHER, SELFPAY ==
[2022-09-06 10:13] LABS: MANUAL DIFF FLAG NO
[2022-09-06 11:00] LABS: Basophils Absolute Auto 0.1 X10*3/uL (0.0-0.2); Basophils Percent Auto 0.9 % (0-2); Eosinophils Absolute Auto 0.3 X10*3/uL (0.0-0.4); Eosinophils Percent Auto 3.9 % (0-4); Hemoglobin 16.3 g/dl (14.0-18.0); Imm Gran Abs Auto 0.03 X10*3/uL (0.00-0.03); Imm Gran Pct Auto 0.4 % (0.0-0.4); Lymphocytes Absolute Auto 1.9 X10*3/uL (1.2-4.9); Lymphocytes Percent Auto 28.3 % (20-40); Mean Corpuscular Hemoglobin 29.2 pg (27.0-33.0); Mean Corpuscular Volume 85.9 fL (80.0-98.0); Mean Platelet Volume 9.9 fL (9.4-12.4); Monocytes Absolute Auto 0.4 X10*3/uL (0.1-1.2); Monocytes Percent Auto 6.2 % (2-11); Neutrophils Absolute Auto 4.1 x10*3/uL (2.0-8.3); Neutrophils Percent Auto 60.3 % (45-73); Platelet Count 252 X10*3/uL (160-400); Red Blood Count 5.59 X10*6/uL (4.60-5.80); White Blood Count 6.8 X10*3/uL (4.8-10.8)
[2022-09-06 11:10] LABS: Estimated Average Glucose 123 mg/dL; Hemoglobin A1c % 5.9 %
[2022-09-06 11:13] LABS: Alanine Aminotransferase 21 U/L (0-40); Albumin Level 4.7 g/dL (3.5-5.0); Alkaline Phosphatase 56 U/L (39-117); Aspartate Amino Transferase 16 U/L (5-37); Bilirubin Total 0.5 mg/dL (0.0-1.0); Blood Urea Nitrogen 15 mg/dL (9-16); Calcium 9.5 mg/dL (8.4-10.2); Estimated Glomerular Filt Rate > 60; Glucose Random 134 mg/dL (60-115); Total Protein 7.1 g/dL (6.5-8.0)
[2022-09-06 11:35] LABS: Anion Gap 12 (12-20); Carbon Dioxide 29 mmol/L (22-29); Chloride 101 mmol/L (96-108); Potassium 4.8 mmol/L (3.3-5.1); Sodium 137 mmol/L (135-145)
== END 2022-09-06 09:56 | disposition home or self-care (01) ==
LOC: HO.LAB 09:55
PROVIDERS: PCP Internal Medicine; Visit Provider Internal Medicine
DX: I10 Essential (primary) hypertension (principal); E78.00 Pure hypercholesterolemia, unspecified
CPT/HCPCS: 36415; 80053; 83036; 85025

== ENCOUNTER 2023-10-03 09:52 | Outpatient (REF) | payer OTHER, SELFPAY ==
[2023-10-03 13:12] LABS: Alanine Aminotransferase 21 U/L (0-40); Albumin Level 4.6 g/dL (3.5-5.0); Alkaline Phosphatase 52 U/L (39-117); Anion Gap 10 (12-20); Aspartate Amino Transferase 17 U/L (5-37); Bilirubin Total 0.6 mg/dL (0.0-1.0); Blood Urea Nitrogen 16 mg/dL (9-16); Calcium 9.7 mg/dL (8.4-10.2); Carbon Dioxide 30 mmol/L (22-29); Chloride 106 mmol/L (96-108); Cholesterol 285 mg/dL (<200); Estimated Glomerular Filt Rate > 60; Glucose Fasting 137 mg/dL (60-99); HDL Cholesterol 33 mg/dL (>40); LDL Cholesterol Calculated 187 mg/dL (<100); Potassium 4.7 mmol/L (3.3-5.1); Sodium 141 mmol/L (135-145); Total Protein 7.3 g/dL (6.5-8.0); Triglycerides 329 mg/dL (<150)
== END 2023-10-03 09:53 | disposition home or self-care (01) ==
LOC: HO.WFDLDS 09:52
PROVIDERS: Visit Provider Internal Medicine
DX: Z12.5 Encounter for screening for malignant neoplasm of prostate (principal); I10 Essential (primary) hypertension; R73.03 Prediabetes; E78.5 Hyperlipidemia, unspecified
CPT/HCPCS: 36415; 80053; 80061; 81001; 82043; 82570; 83036; 84153; 85025

== ENCOUNTER → 2023-10-12 08:48 | Outpatient (REF) | payer OTHER, SELFPAY ==
--- NOTE | 2023-10-12 08:52 | CA_ITS ---
Acquisition Time: 2023-10-12 09:03:56 Total Exercise Time: 00:09:00 Test Indications: Dyspnea Medications: LIPITOR LOSARTAN ASA GEMFEMBRIZOL Protocol: JUAN CARLOS Max HR: 150 BPM 94% of Pred: 159 BPM Max BP: 196/072 mmHG Max Work Load: 10.1 METS PT EXERCISED ON STD JUAN CARLOS PROTOCOL FOR 9 MIN THRU STAGE 2. NO CP OR SOB. NO EKG CHANGES. MAX HR 150-94%MAX CLINICALLY AND ELEC NEG. Referred By: Roger Grayson Overread By: ANDI GRAYSON MD
== END ==
LOC: HO.CARD 08:48
PROVIDERS: PCP Internal Medicine; Visit Provider Internal Medicine
DX: R06.09 Other forms of dyspnea (principal)
CPT/HCPCS: 93017

== ENCOUNTER 2023-11-21 17:15 | Outpatient (REF) | payer OTHER, SELFPAY ==
--- NOTE | ~2023-11-21 | XR_ITS ---
XR/XR chest 2V IMPRESSION: Unremarkable examination. EXAMINATION: XR CHEST CLINICAL INFORMATION: Cough COMPARISON: Previous chest x-ray January 2016 TECHNIQUE: 2 views of the chest were obtained. FINDINGS: No significant abnormality is noted involving the heart, lungs, mediastinum, bony thorax or soft tissues. Degenerative changes of the spine.
[2023-11-21 21:16] LABS: Influenza A PCR NEGATIVE (Negative); Influenza B PCR NEGATIVE (Negative); Resp Syncy Virus RNA Qual PCR NEGATIVE (Negative); SARS COV2 PCR INHOUSE NEGATIVE (Negative)
== END 2023-11-21 17:16 | disposition home or self-care (01) ==
LOC: HO.XRAY 17:15
PROVIDERS: PCP Internal Medicine; Visit Provider Internal Medicine
DX: Z11.52 Encounter for screening for COVID-19 (principal); Z20.822 Contact with and (suspected) exposure to COVID-19; R05.9 Cough, unspecified
CPT/HCPCS: 0241U; 71046

== ENCOUNTER 2023-12-06 09:42 | Outpatient (REF) | payer OTHER, SELFPAY ==
--- NOTE | ~2023-12-06 | XR_ITS ---
EXAMINATION: XR CHEST CLINICAL INFORMATION: Cough. Left lower lobe bronchi. COMPARISON: 11/21/2023 TECHNIQUE: 2 views of the chest were obtained. FINDINGS: No significant abnormality is noted involving the heart, lungs, mediastinum, or soft tissues. Mild degenerative changes of the spine. XR/XR chest 2V IMPRESSION: Unremarkable examination.
== END 2023-12-06 09:43 | disposition home or self-care (01) ==
LOC: HO.XRAY 09:42
PROVIDERS: PCP Internal Medicine; Visit Provider Internal Medicine
DX: R05.9 Cough, unspecified (principal)
CPT/HCPCS: 71046

== ENCOUNTER → 2024-01-24 13:22 | Outpatient (REF) | payer OTHER, SELFPAY | LOC: HO.SL 13:22 | PROVIDERS: PCP Internal Medicine; Visit Provider Internal Medicine | DX: G47.33 Obstructive sleep apnea (adult) (pediatric) (principal) | CPT/HCPCS: 95806 ==

== ENCOUNTER → 2024-01-24 19:00 | Outpatient (BNV) | payer OTHER, SELFPAY | PROVIDERS: PCP Internal Medicine; Visit Provider Internal Medicine | DX: G47.33 Obstructive sleep apnea (adult) (pediatric) (principal) | CPT/HCPCS: 95806 ==

== ENCOUNTER 2024-02-27 08:22 | Outpatient (REF) | payer OTHER, SELFPAY ==
--- NOTE | ~2024-02-27 | CT_ITS ---
NECK CT WITH IV CONTRAST INDICATION: Lump in throat. COMPARISON: None available. TECHNIQUE: Multidetector CT acquisition of the neck was obtained following the administration of 60 cc of Omnipaque 350 IV contrast. Multiplanar reformats were acquired and utilized for image interpretation. This CT examination was performed using dose optimization techniques as appropriate, variously including the following: *Automated exposure control *Adjustment of mA and/or kV according to patient size (this includes techniques or standardized protocols for targeted exams where dose is matched to indication/reason for exam; i.e. extremities or head) *Use of iterative reconstruction technique FINDINGS: No cervical lymphadenopathy. The parotid glands are homogeneous in attenuation. The submandibular glands are normal. The thyroid gland is normal. No contour abnormality or pathologic enhancement is seen within the oral cavity or pharyngeal mucosal space. No retropharyngeal fluid collection is seen. The laryngeal structures are closely opposed in phonation and difficult to assess. The parapharyngeal fat is preserved. The carotid sheath vasculature opacify normally. No extra mucosal soft tissue mass or fluid collection is seen. The superior mediastinum is unremarkable. The lung apices are clear. There is multilevel cervical spondylosis with a few anteriorly projecting disc osteophyte complexes mildly indenting the dorsal hypopharynx and post cricoid pharynx at C5-C6 and C6-C7. There is mild mucosal thickening within the maxillary sinuses, the sphenoid sinuses, the ethmoid air cells, and the frontal sinuses bilaterally. Mastoid air cells are clear. TMJs are unremarkable. The imaged portions of the brain parenchyma are unremarkable. CT/CT soft tissue neck w IV con IMPRESSION: No significant soft tissue findings within the neck. There is multilevel cervical spondylosis with a few anteriorly projecting disc osteophyte complexes mildly indenting the dorsal hypopharynx and post cricoid pharynx at C5-C6.
[2024-02-27] MEDS: iohexoL 350 MG/ML 100 ML INFUS..BTL 60 ML IV (10:32)
[2024-02-27 16:08] LABS: Creatinine POC 0.9 mg/dL (0.5-1.4); GFR POC > 60
== END 2024-02-27 08:23 | disposition home or self-care (01) ==
LOC: HO.CT 08:22
PROVIDERS: PCP Internal Medicine; Visit Provider Internal Medicine
DX: R22.1 Localized swelling, mass and lump, neck (principal)
CPT/HCPCS: 70491; 82565; Q9967

== ENCOUNTER 2024-03-19 11:05 | Outpatient (AMB) | payer OTHER, SELFPAY ==
--- NOTE | 2024-03-19 11:15 | MHC.OFFVIS ---
Vital Signs 03/19/24 11:17 Height 6 ft Weight 245 lb BMI 33.2 Handedness Right Intake Visit Reasons: HUMAN RESOURCES HR REPRESENTATIVE-Left Dupruytrens contracture Intake Note: Luis 63 year old right hand dominant male presents today for a new patient visit for his Left hand Dupruytrens contracture. States he noticed about a month ago a lump between his 4th and 5th digit. Denies locking, numbness, tingling, and recent injury. He reports this causes him no pain with ADLs. Allergies acetaminophen [From Percocet] Allergy (Verified 03/19/24 11:21) Nightmare oxycodone Adverse Reaction (Mild, Verified 03/19/24 11:21) Nausea and Vomiting HPI HPI HUMAN RESOURCES HR REPRESENTATIVE-Left Dupruytrens contracture: Details: Luis is a 63 year old right hand dominant Diabetic man who presents with complaints of a lump in the palm of his left hand. He says for ~1 month he has felt a lump between the base of his left ring & small fingers. He says this doesn't cause him any pain. 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 Review of Systems Const All systems reviewed & are unremarkable except as noted in HPI and below Physical Exam Vital Signs: BMI result Body Mass Index 33.2 Const General: cooperative, healthy appearing and no acute distress Orientation/consciousness: patient oriented x3 HEENT Head: Yes normocephalic and Yes atraumatic Eyes EOM: EOMs intact bilaterally Resp Effort & Inspection: normal respiratory effort and able to speak in complete sentences Cardio Jugular venous distension: no JVD Skin General skin exam: turgor normal Rashes: no rashes Neuro General: patient oriented x3 Extrem Other: Evaluation of Left Upper Extremity: The patient is alert, oriented, and in no acute distress Neuro: Median, Ulnar, Radial nerves motor and sensory intact and sensation is normal to the tips of all digits Vascular: Cap refill brisk ROM: He can make a fist and extend all his digits No locking or catching Skin: No lacerations or abrasions. General: No Ecchymosis. No Erythema or evidence of infection. There is a Dupuytrens nodule in the mid-palmar crease, in line with the ring & small fingers. No evidence of cord or contractures at this time Psych Appearance: grossly normal Affect: normal affect Attitude: cooperative Assessment & Plan Assessment & Plan (1) Dupuytren's disease of palm of left hand: Code(s): M72.0 - Palmar fascial fibromatosis [Dupuytren] Category: Medical Plan Assessment & Plan: 1. Left hand Dupuytrens nodule In the mid-palmar crease, in line with the ring & small fingers No contracture I educated him about this condition I discussed operative & non-operative treatment options No operative indications at this time I directed him to the [email or web address] website for more information If he begins to develop a new cord or contracture he can follow up to discuss treatment options Otherwise he can follow up prn. Scribed for Mariela Ornelas MD by Umesh Gonzalez, medical oncology physician, on 03/19/24 at 11:35 AM, EST. Coding Level of Care Code New Pt Level 3 (91372) Diagnoses Dupuytren's disease of palm of left hand M72.0
[2024-03-19 11:17] VITALS: BMI 33.2
== END 2024-03-19 11:42 | disposition home or self-care (01) ==
LOC: HO.HOS 11:05
PROVIDERS: PCP Internal Medicine; Visit Provider Orthopaedic Surgery
DX: M72.0 Palmar fascial fibromatosis [Dupuytren] (principal)
CPT/HCPCS: 99203

== ENCOUNTER → 2024-03-19 11:05 | Outpatient (BNVA) | payer OTHER, SELFPAY | PROVIDERS: PCP Internal Medicine; Visit Provider Orthopaedic Surgery ==

== ENCOUNTER 2024-10-13 13:07 | Outpatient (REF) | payer BC, SELFPAY | END 2024-10-13 13:08 | disposition home or self-care (01) | LOC: HO.LAB 13:07 | PROVIDERS: PCP Internal Medicine; Visit Provider Internal Medicine | DX: Z13.89 Encounter for screening for other disorder (principal) ==

== ENCOUNTER 2024-12-11 09:43 | Outpatient (REF) | payer BC, SELFPAY ==
--- OUTSIDE RECORDS SUMMARY | 2024-12-11 11:43 | XMS_ITS | Patient Health Record ---
Author Organization [facility] Address [address] [place] [id number] Care Team Providers Care Pediatric Licensed Practical Nurse Name Role Phone Roger Oakley MD Primary Care Provider Sumit Alonso Jr Unavailable [phone] Allergies Allergen (clinical drug ingredient) Drug/Non Drug Allergy documented on EMR Reaction Allergy Type Onset Date Status seasonal (uncoded) Unknown Allergy A ctive Reason For Referral No Information Medications Medication SIG (Take, Route, Frequency, Duration) Notes Start Date End Date Status MiraLax (colon prep) 17 GM/SCOOP mixed with Gatorade or Crystal Light Orally begin at 5:00 p.m. the day before the procedure for 1 day 01/11/2022 Active Gemfibrozil 600mg Ac tive Losartan Potassium 25 MG TAKE 1 TABLET B Y MOUTH ONCE DAILY Oral for 90 Active Aspir-81 Active Lexapro 20mg Active Lipitor 40mg Active Immunizations Vaccine Route Administration Date Status Comme nts Influenza Unknown 08/24/2021 Administered Problems Problem Type SNOMED Code ICD Code Onset Dates Problem Status W/U Status Risk Notes Problem 6019372 Diverticulitis o f large intestine without perforation or abscess without bleeding (K57.32) Active confirmed Problem Diverticulitis (47138727) Diverticulitis (K57.92) Active confirmed Plan Of Treatment Future Test Test Name Order Date COLONOSCOPY 07/07/2013 COLONOSCOPY 01/11/2022 Insurance Providers Payer Name Payer Address Payer Phone Subscriber Number Group Number Insured Name Patient Relationship to Insured Coverage Start Date Coverage End Date [facility] [address] [place] [phone] [id number] LAOY VERAS Self - patient is the insured Medical (General) History Medical History History ICD Code Hypertension diverticulitis Hyperlipidemia Colonoscopy 11/14, hyperplast ic polyps, diverticulosis, internal hemorrhoids, ten-year followup Depression Surgical History Surgery Date(Month/Year) hernia repair elbow surgery-left Hospitalization History Reason Date(Month/Year) diverticulitis-[facility] [place] 2021
== END 2024-12-11 09:44 | disposition home or self-care (01) ==
LOC: HO.SH 09:43
PROVIDERS: Visit Provider Internal Medicine
DX: Z46.1 Encounter for fitting and adjustment of hearing aid (principal); H90.3 Sensorineural hearing loss, bilateral
CPT/HCPCS: 92557; 92567

== ENCOUNTER 2024-12-19 09:03 | Outpatient (AMB) | payer BC, SELFPAY ==
--- NOTE | 2024-12-19 09:32 | MHC.PC.OV ---
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 Surgery Required: No Accompanied by: Self / Same As Patient Allergies acetaminophen [From Percocet] Allergy (Verified 12/19/24 09:34) Nightmare oxycodone Adverse Reaction (Mild, Verified 12/19/24 09:34) Nausea and Vomiting Tobacco use date assessed: 12/19/24 Dental Screening Dental Screen Date: 12/19/24 Did you have a dental visit in the last 12 months?: Yes Did you have a dental problem in the last 6 months where you did not have access to dental care?: No HPI HPI Comments History of Present Illness Details The patient is a 64 y/o with htn, hld, BPH, ADD, anxiety presenting for follow up CV: On gemfibrozil, losartan, atorvastatin. BP 122/78. Denies chest pain, shortness of breath Anxiety: Stable on lexapro. Says he was diagnosed with ADD as a child and had tried a stimulant. He notes chronic issues with concentration, task completion etc. Would like to try med again ROS CONSTITUTIONAL: Denies weight loss, fever and chills. HEENT: Denies changes in vision and hearing. RESPIRATORY: Denies SOB and cough. CV: Denies palpitations and CP GI: Denies abdominal pain, nausea, vomiting and diarrhea. : Denies dysuria and urinary frequency. MSK: Denies new myalgia and joint pain. SKIN: Denies rash and pruritus. NEUROLOGICAL: Denies headache PSYCHIATRIC: Denies recent changes in mood. PHYSICAL EXAM: GENERAL: Alert and oriented x 3. NAD EYES: EOMI. Anicteric. HENT: Moist mucous membranes. No scleral icterus. No cervical lymphadenopathy. LUNGS: Clear to auscultation bilaterally. CARDIOVASCULAR: Regular rate and rhythm. No murmur. No JVD. ABDOMEN: Soft, non-tender +bs EXTREMITIES: No edema. Non-tender. SKIN: No rashes or lesions. Warm. NEUROLOGIC: No focal neurological deficits. CN II-XII grossly intact PSYCHIATRIC: Cooperative. 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 1. Little interest or pleasure in doing things: not at all 2. Feeling down, depressed, or hopeless: not at all 3. Trouble falling or staying asleep, or sleeping too much: not at all 4. Feeling tired or having little energy: not at all 5. Poor appetite or overeating: not at all 6. Feeling bad about yourself - or that you are a failure or have let yourself or your family down: not at all 7. Trouble concentrating on things, such as reading the newspaper or watching television: not at all 8. Moving or speaking so slowly that other people could have noticed. Or the opposite - being so fidgety or restless that you have been moving around a lot more than usual: not at all 9. Thoughts that you would be better off or of hurting yourself in some way: not at all Total score: 0 Depression Screening Interpretation: Negative Depression Screening Done: Yes 92910 - PHQ-9 Billing: Yes Source: Developed by Drs. Kamaljit Hood, Danielle Aaron, Fritz Lind and colleagues, with an educational keo from [employer]. Thrive Questionnaire Date Thrive assessed: 12/19/24 I am a: Patient What is your living situation today?: I have a steady place to live Within the past 12 months, did the food you bought not last and you didn't have the money to get more?: Never true Within the past 12 months, did you worry whether your food would run out before you got money to buy more?: Never true Do you have trouble paying for medicines?: No Do you have trouble getting transportation to medical appointments?: No Do you have trouble paying your heating and electricity bill?: No Do you have trouble taking care of your child, family member or friend?: No Do you have trouble with day-to-day activities such as bathing, preparing meals, shopping, managing finances, etc.?: No Are you currently unemployed and looking for a job?: No Please select the resources that you would like help with: None THRIVE Score: 0 AUDIT C Alcohol Use Questionnaire (AUDIT-C) 1. How often do you have a drink containing alcohol?: Monthly or less 2. How many drinks containing alcohol do you have on a typical day when you are drinking?: 1 or 2 3. How often do you have six or more drinks on one occasion?: Never Total Score: 1 BARBARA-7 AMB Questionnaire BARBARA-7 Date BARBARA - 7 assessed: 12/19/24 Feeling nervous, anxious, or on edge: 0 = Not at all Not being able to stop or control worryin = Not at all Worrying too much about different things: 0 = Not at all Trouble relaxin = Not at all Being so restless that it is hard to sit still: 0 = Not at all Becoming easily annoyed or irritable: 0 = Not at all Feeling afraid as if something awful might happen: 0 = Not at all Total BARBARA-7 score (0-4 normal; 5-9 mild; 10-14 moderate; 15-21 severe): 0 Source: Developed by Drs. Kamaljit Hood, Danielle Aaron, Fritz Lind and colleagues, with an educational keo from [facility]. Physical exam (Primary Care) Vital Signs: Last Vital Signs Temp 97.4 F 12/19/24 09:33 Pulse 72 12/19/24 09:33 BP 122/78 12/19/24 09:33 Pulse Ox 96 12/19/24 09:33 Oxygen Delivery Method Room Air 12/19/24 09:33 BMI result Body Mass Index 33.2 Tobacco/Smoking Status: Tobacco use Status Tobacco use date assessed 12/19/24 12/19/24 09:47 Patient Tobacco Use Status Never used Tobacco 12/19/24 09:47 PHQ-9: PHQ-9 Score PHQ-9: Total score 0 12/21/24 19:55 Depression Screening Interpretation: Negative Thrive Assessment: Date of Thrive Assessment Date Thrive assessed 12/19/24 12/19/24 09:47 Coding Level of Care Code New Pt Level 4 (53656) Diagnoses Attention deficit R41.840 Primary hypertension I10 Hypertension type: primary hypertension Additional Codes PHQ-9 - 23953 - PHQ-9 Billing: Yes ([id number]) Assessment & Plan Assessment & Plan (1) Attention deficit: Code(s): R41.840 - Attention and concentration deficit Category: Medical (2) Hypertension: Code(s): I10 - Essential (primary) hypertension Category: Medical Qualifiers: Hypertension type: primary hypertension Qualified Code(s): I10 - Essential (primary) hypertension Plan Blood pressure well controlled ADD-trial adderall Medications: New Adderall XR 20 mg (dextroamphetamine-amphetamine) Partial Fill upon patient request. 20 mg PO DAILY 60 caps 0RF NS R41.840 - Attention and concentration deficit
[2024-12-19 09:33] VITALS: BP 122/78; PULSE 72; TEMP 36.3; O2SAT 96; BMI 33.2
--- OUTSIDE RECORDS SUMMARY | 2024-12-19 09:40 | XMS_ITS | Patient Health Record ---
Author Organization [facility] Address [address] [place] [id number] Care Team Providers Care Lining Brusher Name Role Phone Roger Oakley MD Primary Care Provider Sumit Alonso Jr Unavailable [phone] Allergies Allergen (clinical drug ingredient) Drug/Non Drug [...] Problem Status W/U Status Risk Notes Problem [id number] Diverticulitis o f large intestine without perforation or abscess without bleeding (K57.32) Active confirmed Problem Diverticulitis (43025561) Diverticulitis (K57.92) Active confirmed Plan Of Treatment Future Test Test Name Order Date COLONOSCOPY 07/07/2013 COLONOSCOPY 01/11/2022 Insurance Providers Payer Name Payer Address Payer Phone Subscriber Number Group Number Insured Name Patient Relationship to Insured Coverage Start Date Coverage End Date [facility] [address] [place] [phone] [id number] LAYO VERAS Self - patient is the insured Medical (General) History Medical History History ICD Code Hypertension diverticulitis Hyperlipidemia Colonoscopy 11/14, hyperplast ic polyps, diverticulosis, internal hemorrhoids, ten-year followup Depression Surgical History Surgery Date(Month/Year) hernia repair elbow surgery-left Hospitalization History Reason Date(Month/Year) diverticulitis-[facility] 2021
== END 2024-12-19 10:19 | disposition home or self-care (01) ==
LOC: HO.HMCHD 09:03
PROVIDERS: PCP Internal Medicine; Visit Provider Internal Medicine
DX: R41.840 Attention and concentration deficit (principal); I10 Essential (primary) hypertension

== ENCOUNTER → 2024-12-19 09:03 | Outpatient (BNVA) | payer BC, SELFPAY | PROVIDERS: PCP Internal Medicine; Visit Provider Internal Medicine | DX: I10 Essential (primary) hypertension (principal); E78.5 Hyperlipidemia, unspecified; N40.0 Benign prostatic hyperplasia without lower urinary tract symptoms; F41.9 Anxiety disorder, unspecified; R41.840 Attention and concentration deficit | CPT/HCPCS: 96127 ==

== ENCOUNTER 2025-03-05 11:01 | Outpatient (AMB) | payer BC, SELFPAY ==
[2025-03-05 11:20] VITALS: BP 128/90; PULSE 72; TEMP 36.7; O2SAT 96; BMI 31.0
--- NOTE | 2025-03-05 11:20 | AM.OFFWIN_ITS ---
Intake Vital Signs 03/05/25 11:20 Height 6 ft Weight 228 lb 4 oz BMI 31.0 BP 128/90 H Blood Pressure Location Lt brachial Position Sitting Pulse 72 Pulse Source Pulse Oximeter Temp 98.0 F Temp Source Oral Pulse Oximetry (%) 96 Oxygen Delivery Method Room Air Intake Visit Reasons: EP Cough, congestion, headache,weak 9 days Intake Note: Pt presents to the office today for c/o cough,congestion,headache, x9 days. Patient Tobacco Use Status: Never used Tobacco Allergies acetaminophen [From Percocet] Allergy (Verified 03/05/25 11:23) Nightmare oxycodone Adverse Reaction (Mild, Verified 03/05/25 11:23) Nausea and Vomiting HPI HPI Comments History of Present Illness Details History of Present Illness - The patient is a 64-year-old male pres enting with respiratory symptoms including a persistent unproductive cough and sinus congestion. - Symptoms onset 9 days ago and include nasal congestion, headaches, sore throat, and discomfort in ears. - The patient noted chills in the evenin gs and reports negative COVID testing. - Nasal discharge has transitioned from green and yellow to brownish, with no productive cough reported. - Utilizes ucjr-wud-wzfkdso allergy medi cation with partial symptom control; no use of prescribed allergy medication reported. - History of non-compliance with CPAP de vice acknowledged due to his cough for the past 9 days. - Reports wheezing during night-time, al annemarie with facial pressure and eye discomfort. He feels like his eye are being squished. - Denies tobacco use. - He denies fever, chills, CP, abd pain, n/v/d, sick contacts, or travel Physical Exam General: Cooperative, healthy appearing, comfortable, no acute distress and well developed Orientation: Patient oriented x3 Head: Normal to inspection Ears: Normal hearing, TM's normal. Cerumen noted in the ear canals. Nose: Normal external nose present, but patient reports congestion and blood in the nose Face and sinus: Normal facial exam. No TTP of sinuses bilaterally. Throat: Erythema noted in the oropharynx, no exudates noted. Eyes: Appearance normal, both eyes and all related structures Neck: Normal visual inspection and Yes full ROM. No lymphadenopathy noted. Respiratory: Normal respiratory effort, inspiratory and expiratory wheezes noted. Able to speak in complete sentences. Clear to auscultation bilaterally Cardiovascular: Regular rate and rhythm. Normal S1 and S2 GI: Normal to inspection. Soft to palpation and nontender Skin: No rashes or lesions noted Patient was informed and verbally consented to the use of an ambient scribe for clinic note documentation during this visit. 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 Cognitive needs: No Hearing needs: No Vision needs: Yes (reading glasses) Review of Systems Const All systems reviewed & are unremarkable except as noted in HPI and below Physical Exam Vital Signs: Last Vital Signs Temp 98.0 F 03/05/25 11:20 Pulse 72 03/05/25 11:20 BP 128/90 H 03/05/25 11:20 Pulse Ox 96 03/05/25 11:20 Oxygen Delivery Method Room Air 03/05/25 11:20 BMI result Body Mass Index 31.0 Assessment & Plan Assessment & Plan (1) URI with cough and congestion: Code(s): J06.9 - Acute upper respiratory infection, unspecified Plan Most likely URI vs sinusitis vs flu vs covid Plan - Prescribe antibiotics for potential bacterial involvement in sinusitis and respiratory infection. - Initiate inhaler therapy for wheezing management. - Administer cough suppressant while advising against concurrent use of non- prescribed cough medicine. - Encourage resumption of CPAP use to assist with nocturnal breathing. - Continue dbxr-jog-bwgakcz allergy medications as part of symptomatic management. - Prescriptions will be available at [facility]. Medications: New benzonatate 100 mg PO TID 7 days PRN 21 caps 0RF Cough albuterol sulfate 90 mcg/actuation 2 puffs inhalation Q6H PRN 8.5 grams 0RF shortness of breath or wheezing or cough amoxicillin-pot clavulanate 875-125 mg 1 tab PO Q12H 10 tabs 0RF fluticasone propionate 50 mcg/actuation administer into each nostril 1 spray intranasal Q12H 16 grams 0RF Coding Level of Care Code Est Pt Level 3 (64834) Diagnoses URI with cough and congestion J06.9
--- OUTSIDE RECORDS SUMMARY | 2025-03-05 13:01 | XMS_ITS | Patient Health Record ---
Author Organization [facility] Address [address] [place] [address] [place] [address] Care Team Providers Care Cell Installer Name Role Phone Macario Boateng Unavailable [phone] Reason For Referral No Information Problems Problem Type SNOMED Code ICD Code Onset Dates Problem Status W/U Status Risk Notes Problem Pain in left knee ([id number] 102) Pain in left knee (M25.562) Active confirmed Alexandr Problem Low back pain (601225246) Low back pain (M54.5) Active confirmed Alexandr Plan Of Treatment No Information
== END 2025-03-05 12:25 | disposition home or self-care (01) ==
PROVIDERS: PCP Internal Medicine; Visit Provider Physician Assistant Medical
DX: J06.9 Acute upper respiratory infection, unspecified (principal)

== ENCOUNTER → 2025-03-05 11:01 | Outpatient (BNVA) | payer BC, SELFPAY | PROVIDERS: PCP Internal Medicine; Visit Provider Physician Assistant Medical ==

== ENCOUNTER 2025-03-10 09:18 | Outpatient (AMB) | payer BC, SELFPAY ==
--- NOTE | 2025-03-10 09:20 | MHC.PC.OV ---
Vital Signs 03/10/25 09:24 Height 6 ft Weight 103.419 kg BMI 30.9 BP 140/92 H Respiration 16 Pulse 73 Pulse Source Pulse Oximeter Temp 96.2 F L Temp Source Temporal Artery Scan Pulse Oximetry (%) 98 Oxygen Delivery Method Room Air Intake Visit Reasons: Sick / NO COVID Speedometer Inspector Required: No Accompanied by: Self / Same As Patient Allergies acetaminophen [From Percocet] Allergy (Verified 03/10/25 09:21) Nightmare oxycodone Adverse Reaction (Mild, Verified 03/10/25 09:21) Nausea and Vomiting Medication List - Last Reconciled 03/10/25 by MATHIEU Gaines Adderall XR 20 mg (dextroamphetamine-amphetamine) 20 mg PO DAILY NS albuterol sulfate 90 mcg/actuation 2 puffs inhalation Q6H PRN amoxicillin-pot clavulanate 875-125 mg 1 tab PO BID aspirin 81 mg PO DAILY atorvastatin (Lipitor) 20 mg PO DAILY benzonatate 100 mg PO TID PRN 7 days escitalopram oxalate (Lexapro) 20 mg PO DAILY fluticasone propionate 50 mcg/actuation 1 spray intranasal Q12H gemfibrozil 600 mg PO DAILY losartan 1 tab PO DAILY prednisone 40 mg (2 x 20 mg) PO DAILY Tobacco use date assessed: 12/19/24 Dental Screening Dental Screen Date: 12/19/24 HPI HPI Comments History of Present Illness Details 64-year-old female with history of BPH, hyperlipidemia, depression/anxiety, hypertension, hyperlipidemia, basal cell carcinoma, prediabetes, Peyronie's disease presents to the office today for evaluation and to establish care. Hypertension-blood pressure in the office today 140/92. On losartan. Hypercholesterolemia-compliant with atorvastatin 20 mg and gemfibrozil 600 mg daily. Last total cholesterol 169, LDL 96, triglycerides 206 Peyronie's disease-following with urology in [place]. Underwent cystoscopy without any malignancy identified. Will obtain records. Depression/sijockj-QTX-7 score 11. However, to questions with 3/3 related to fatigue and decreased energy. No SI/HI. Continues on Lexapro 20 mg twice daily Basal cell carcinoma/psoriasis-following with Dermatology Prediabetes-last A1c 5.8% Concerns: Was seen in urgent care on 03/05 due to upper respiratory symptoms that have now been ongoing for 2 weeks. Reports symptoms including productive cough with associated shortness of breath but no wheezing. Significant sinus pressure and nasal congestion. No fevers, sore throat. He was prescribed a 5 day course of Augmentin which he will complete today as well as benzonatate and Flonase. He was prescribed albuterol inhaler but this was not picked up. He reports symptoms have greatly improved but continues with productive cough and sinus pressure. Also taking ivan Health maintenance: Last colonoscopy-02/10/2022 with 10 year follow-up advised. Dr. Barnes ROS: General: No fevers, malaise, unintentional weight loss HEENT: see hpi Cardiovascular: No chest pain, palpitations, or leg edema Respiratory: No shortness of breath, wheezing, cough GI: No abdominal pain, nausea, vomiting, diarrhea, constipation, melena, hematochezia : No dysuria, hematuria, increased urinary frequency, decreased urinary output. see hpi MSK: No myalgia, back pain Neuro: No headaches, weakness, paresthesias Skin: No rashes or lesions EXAM: Constitutional - Awake and Alert, No apparent distress Eyes - PERRL Nose - septum midline, no sinus ttp Mouth- no erythema, tonsillar adenopathy/exudate Neck - no adenopathy Cardiovascular - S1S2, RRR, No edema Respiratory - Normal lung expansion, Normal respiratory effort, No respiratory distress, somewhat diminished upper lobes, otherwise CTA Extremities - no calf tenderness bilaterally, no swelling Skin - Warm/Dry Neurological - Alert & oriented x3 Psychological - Appropriate affect PFSH Medical History Rotator cuff arthropathy of right shoulder Depression Diverticulitis Hypercholesteremia Depression Hypertension Surgical History H/O colonoscopy History of right inguinal hernia repair History of elbow surgery Family History Father Bladder cancer Myocardial infarct Paternal Grandmother Myocardial infarct Social History Housing: House Alcohol intake: never Patient Tobacco Use Status: Never used Tobacco service: No Current occupational status: employed 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 1. Little interest or pleasure in doing things: several days 2. Feeling down, depressed, or hopeless: not at all 3. Trouble falling or staying asleep, or sleeping too much: nearly every day 4. Feeling tired or having little energy: nearly every day 5. Poor appetite or overeating: several days 6. Feeling bad about yourself - or that you are a failure or have let yourself or your family down: nearly every day 7. Trouble concentrating on things, such as reading the newspaper or watching television: not at all 8. Moving or speaking so slowly that other people could have noticed. Or the opposite - being so fidgety or restless that you have been moving around a lot more than usual: not at all 9. Thoughts that you would be better off or of hurting yourself in some way: not at all Total score: 11 Source: Developed by Drs. Kamaljit Hood, Danielle Aaron, Fritz Lind and colleagues, with an educational keo from [employer]. Thrive Questionnaire Date Thrive assessed: 03/10/25 I am a: Patient What is your living situation today?: I have a steady place to live Within the past 12 months, did the food you bought not last and you didn't have the money to get more?: Never true Within the past 12 months, did you worry whether your food would run out before you got money to buy more?: Never true Do you have trouble paying for medicines?: No Do you have trouble getting transportation to medical appointments?: No Do you have trouble paying your heating and electricity bill?: No Do you have trouble taking care of your child, family member or friend?: No Do you have trouble with day-to-day activities such as bathing, preparing meals, shopping, managing finances, etc.?: No Are you currently unemployed and looking for a job?: No Are you interested in more education?: No Please select the resources that you would like help with: None THRIVE Score: 0 BARBARA-7 AMB Questionnaire BARBARA-7 Date BARBARA - 7 assessed: 03/10/25 Feeling nervous, anxious, or on edge: 0 = Not at all Not being able to stop or control worryin = Not at all Worrying too much about different things: 0 = Not at all Trouble relaxin = Not at all Being so restless that it is hard to sit still: 0 = Not at all Becoming easily annoyed or irritable: 0 = Not at all Feeling afraid as if something awful might happen: 0 = Not at all Total BARBARA-7 score (0-4 normal; 5-9 mild; 10-14 moderate; 15-21 severe): 0 Source: Developed by Drs. Kamaljit Hood, Danielle Aaron, Fritz Lind and colleagues, with an educational keo from [employer]. Physical exam (Primary Care) Vital Signs: Last Vital Signs Temp 96.2 F L 03/10/25 09:24 Pulse 73 03/10/25 09:24 Resp 16 03/10/25 09:24 BP 140/92 H 03/10/25 09:24 Pulse Ox 98 03/10/25 09:24 Oxygen Delivery Method Room Air 03/10/25 09:24 BMI result Body Mass Index 30.9 Tobacco/Smoking Status: Tobacco use Status Tobacco use date assessed 12/19/24 03/10/25 09:23 Patient Tobacco Use Status Never used Tobacco 03/10/25 09:23 PHQ-9: PHQ-9 Score PHQ-9: Total score 11 03/10/25 10:04 Thrive Assessment: Date of Thrive Assessment Date Thrive assessed 03/10/25 03/10/25 10:04 Coding Level of Care Code Est Pt Level 4 (16747) Complex EM visit Add On G2211 Diagnoses Primary hypertension I10 Hypertension type: primary hypertension Depression F32.9 Hypercholesteremia E78.00 Sinusitis J32.9 Acute bronchitis J20.9 Unintentional weight loss R63.4 Assessment & Plan Assessment & Plan (1) Hypertension: Code(s): I10 - Essential (primary) hypertension Category: Medical Qualifiers: Hypertension type: primary hypertension Qualified Code(s): I10 - Essential (primary) hypertension Plan: Borderline. However, previously has been controlled. Will recheck blood pressure at follow-up visit in 1 month. Continue losartan as prescribed. Will evaluate renal function and electrolyte levels (2) Depression: Code(s): F32.9 - Major depressive disorder, single episode, unspecified Category: Medical Plan: PHQ-9 score 11. Labs ordered to evaluate fatigue. Continue lexapro. (3) Hypercholesteremia: Code(s): E78.00 - Pure hypercholesterolemia, unspecified Category: Medical Plan: Lipid panel ordered. Continue atorvastatin and gemfibrozil. (4) Sinusitis: Code(s): J32.9 - Chronic sinusitis, unspecified Category: Medical Plan: Improved though symptoms do still persist. Was only given a 5 day supply of Augmentin. Will extend for an additional 5 days to ensure resolution of infection. Recommend ongoing use of Augmentin and nasal rinses/sprays (5) Acute bronchitis: Code(s): J20.9 - Acute bronchitis, unspecified Category: Medical Plan: Short course of prednisone 40 mg daily x5 days ordered. Dosing and side effects discussed with patient. Albuterol inhaler recent to pharmacy. Can continue Chantel Coe (6) Unintentional weight loss: Code(s): R63.4 - Abnormal weight loss Category: Medical Plan: Etiology unclear. Possibly relative to adderall use or increased activity. However investigate addl causes. Labs ordered as below. Follow up in 1 month for further discussion and weight check Plan Follow up in 1 month. Labs to be completed as below. Prednisone and Orders: Orders Complete Blood Count Auto Diff Today J20.9 - Acute bronchitis, unspecified, J32.9 - Chronic sinusitis, unspecified, R63.4 - Abnormal weight loss Erythrocyte Sedimentation Rate Today J20.9 - Acute bronchitis, unspecified, J32.9 - Chronic sinusitis, unspecified, R63.4 - Abnormal weight loss C Reactive Protein Today J20.9 - Acute bronchitis, unspecified, J32.9 - Chronic sinusitis, unspecified, R63.4 - Abnormal weight loss Hemoglobin A1c Today R63.4 - Abnormal weight loss Prostate Specific Antigen 1 Month R63.4 - Abnormal weight loss Basic Metabolic Panel Today R63.4 - Abnormal weight loss Lipid Panel Today J20.9 - Acute bronchitis, unspecified, J32.9 - Chronic sinusitis, unspecified, R63.4 - Abnormal weight loss Liver Panel Today J20.9 - Acute bronchitis, unspecified, J32.9 - Chronic sinusitis, unspecified, R63.4 - Abnormal weight loss TSH reflex Free T4 Today J20.9 - Acute bronchitis, unspecified, J32.9 - Chronic sinusitis, unspecified, R63.4 - Abnormal weight loss UA CC w/rflx Micro + Cult Today J20.9 - Acute bronchitis, unspecified, J32.9 - Chronic sinusitis, unspecified, R63.4 - Abnormal weight loss Medications: New prednisone 40 mg (2 x 20 mg) PO DAILY 10 tabs 0RF amoxicillin-pot clavulanate 875-125 mg 1 tab PO BID 10 tabs 0RF Refilled albuterol sulfate 90 mcg/actuation 2 puffs inhalation Q6H PRN 8.5 grams 0RF shortness of breath or wheezing or cough
[2025-03-10 09:24] VITALS: BP 140/92; PULSE 73; RESP 16; TEMP 35.7; O2SAT 98; BMI 30.9
--- OUTSIDE RECORDS SUMMARY | 2025-03-10 10:05 | XMS_ITS | Patient Health Record ---
Author Organization [facility] Address [address] [place] [address] [place] [address] Care Team Providers Care Health Outcomes Liaison Name Role Phone Macario Boateng Unavailable [phone] Reason For Referral No Information Problems Problem Type SNOMED Code ICD Code Onset Dates Problem Status W/U Status Risk Notes Problem Pain in left knee ([id number] 102) Pain in left knee (M25.562) Active confirmed Alexandr Problem Low back pain (393312663) Low back pain (M54.5) Active confirmed Alexandr Plan Of Treatment No Information
== END 2025-03-10 10:06 | disposition home or self-care (01) ==
LOC: HO.HMCHD 09:18
PROVIDERS: PCP Internal Medicine; Visit Provider Physician Assistant
DX: I10 Essential (primary) hypertension (principal); F32.9 Major depressive disorder, single episode, unspecified; E78.00 Pure hypercholesterolemia, unspecified; J32.9 Chronic sinusitis, unspecified; J20.9 Acute bronchitis, unspecified; R63.4 Abnormal weight loss

== ENCOUNTER → 2025-03-10 09:18 | Outpatient (BNVA) | payer BC, SELFPAY | PROVIDERS: PCP Internal Medicine; Visit Provider Physician Assistant ==

== ENCOUNTER 2025-03-26 09:05 | Outpatient (AMB) | payer BC, SELFPAY ==
--- NOTE | 2025-03-26 08:54 | MHC.PC.OV ---
Vital Signs 03/26/25 09:11 Height 6 ft Weight 225 lb BMI 30.5 BP 130/76 Blood Pressure Location Lt brachial Position Sitting Pulse 73 Pulse Source Pulse Oximeter Temp 97.1 F Temp Source Axillary Pulse Oximetry (%) 99 Oxygen Delivery Method Room Air Intake Visit Reasons: Routine Elderly Sitter Required: No Accompanied by: Self / Same As Patient Allergies acetaminophen (From Percocet) Allergy (Verified 03/26/25 08:54) Nightmare oxycodone Adverse Reaction (Mild, Verified 03/26/25 08:54) Nausea and Vomiting Tobacco use date assessed: 03/26/25 Dental Screening Dental Screen Date: 12/19/24 Did you have a dental visit in the last 12 months?: Yes Did you have a dental problem in the last 6 months where you did not have access to dental care?: No HPI HPI Comments History of Present Illness Details 64-year-old female with history of BPH, hyperlipidemia, depression/anxiety, hypertension, hyperlipidemia, basal cell carcinoma, prediabetes, Peyronie's disease presenting for follow up CV-On losartan, lipitor, gemfibrozil. 130/76. On losartan. Denies chest pain, exertional dyspnea. Peyronie's disease-following with urology in [place]. Underwent cystoscopy without any malignancy identified. Will obtain records. Depression/anxiety-started on adderall at last visit. Diagnosed with ADD as a child. He is doing excellent on the medication, says it has changed his life. Continues on Lexapro 20 mg twice daily Basal cell carcinoma/psoriasis-overdue for Dermatology. right leg lesion concerning for basal cell Prediabetes-last A1c 5.8%. Labs pending Right sided bunion. The big toe is increasingly putting pressure and causing callus on the right second toe Health maintenance: Last colonoscopy-02/10/2022 with 10 year follow-up advised. Dr. Cameron JOSEPH see HPI PHYSICAL EXAM: GENERAL: Alert and oriented x 3. NAD EYES: EOMI. Anicteric. HENT: Moist mucous membranes. No scleral icterus. No cervical lymphadenopathy. LUNGS: Clear to auscultation bilaterally. CARDIOVASCULAR: Regular rate and rhythm. No murmur. No JVD. ABDOMEN: Soft, non-tender +bs EXTREMITIES: No edema. Non-tender. SKIN: BCC/SCC of right leg NEUROLOGIC: No focal neurological deficits. CN II-XII grossly intact PSYCHIATRIC: Cooperative. 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 1. Little interest or pleasure in doing things: not at all 2. Feeling down, depressed, or hopeless: not at all 3. Trouble falling or staying asleep, or sleeping too much: not at all 4. Feeling tired or having little energy: not at all 5. Poor appetite or overeating: not at all 6. Feeling bad about yourself - or that you are a failure or have let yourself or your family down: not at all 7. Trouble concentrating on things, such as reading the newspaper or watching television: not at all 8. Moving or speaking so slowly that other people could have noticed. Or the opposite - being so fidgety or restless that you have been moving around a lot more than usual: not at all 9. Thoughts that you would be better off or of hurting yourself in some way: not at all Total score: 0 Depression Screening Interpretation: Negative Depression Screening Done: Yes 26337 - PHQ-9 Billing: Yes Source: Developed by Drs. Kamaljit Hood, Danielle Aaron, Fritz Lind and colleagues, with an educational keo from [employer]. Thrive Questionnaire Date Thrive assessed: 03/26/25 I am a: Patient Within the past 12 months, did the food you bought not last and you didn't have the money to get more?: Never true Within the past 12 months, did you worry whether your food would run out before you got money to buy more?: Never true Do you have trouble paying for medicines?: No Do you have trouble getting transportation to medical appointments?: No Do you have trouble paying your heating and electricity bill?: No Do you have trouble taking care of your child, family member or friend?: No Do you have trouble with day-to-day activities such as bathing, preparing meals, shopping, managing finances, etc.?: No Are you currently unemployed and looking for a job?: No Are you interested in more education?: No THRIVE Score: 0 AUDIT C Alcohol Use Questionnaire (AUDIT-C) 1. How often do you have a drink containing alcohol?: Never 3. How often do you have six or more drinks on one occasion?: Never Total Score: 0 BARBARA-7 AMB Questionnaire BARBARA-7 Date BARBARA - 7 assessed: 03/26/25 Feeling nervous, anxious, or on edge: 0 = Not at all Not being able to stop or control worryin = Not at all Worrying too much about different things: 0 = Not at all Trouble relaxin = Not at all Being so restless that it is hard to sit still: 0 = Not at all Becoming easily annoyed or irritable: 0 = Not at all Feeling afraid as if something awful might happen: 0 = Not at all Total BARBARA-7 score (0-4 normal; 5-9 mild; 10-14 moderate; 15-21 severe): 0 Source: Developed by Drs. Kamaljit Hood, Danielle Aaron, Fritz Lind and colleagues, with an educational keo from [employer]. Physical exam (Primary Care) Vital Signs: Last Vital Signs Temp 97.1 F 03/26/25 09:11 Pulse 73 03/26/25 09:11 BP 130/76 03/26/25 09:11 Pulse Ox 99 03/26/25 09:11 Oxygen Delivery Method Room Air 03/26/25 09:11 BMI result Body Mass Index 30.5 Tobacco/Smoking Status: Tobacco use Status Tobacco use date assessed 03/26/25 03/26/25 08:55 Patient Tobacco Use Status Never used Tobacco 03/26/25 08:55 e-Cigarette/Vaping Use Never Used 03/26/25 08:55 PHQ-9: PHQ-9 Score PHQ-9: Total score 0 03/26/25 09:22 Depression Screening Interpretation: Negative Thrive Assessment: Date of Thrive Assessment Date Thrive assessed 03/26/25 03/26/25 08:55 Coding Level of Care Code Est Pt Level 4 (56354) Complex EM visit Add On G2211 Diagnoses Primary hypertension I10 Hypertension type: primary hypertension Major depressive disorder in partial remission, unspecified whether recurrent F32.4 Depression Type: major depressive disorder Major depression recurrence: unspecified whether recurrent Active/Remission status: in partial remission Attention deficit R41.840 Basal cell carcinoma (BCC), unspecified site C44.91 Basal cell carcinoma location: unspecified site Additional Codes PHQ-9 - 98243 - PHQ-9 Billing: Yes ([id number]) Assessment & Plan Assessment & Plan (1) Hypertension: Code(s): I10 - Essential (primary) hypertension Category: Medical Qualifiers: Hypertension type: primary hypertension Qualified Code(s): I10 - Essential (primary) hypertension (2) Depression: Code(s): F32.9 - Major depressive disorder, single episode, unspecified Category: Medical Qualifiers: Depression Type: major depressive disorder Major depression recurrence: unspecified whether recurrent Active/Remission status: in partial remission Qualified Code(s): F32.4 - Major depressive disorder, single episode, in partial remission (3) Attention deficit: Code(s): R41.840 - Attention and concentration deficit Category: Medical (4) Basal cell carcinoma: Code(s): C44.91 - Basal cell carcinoma of skin, unspecified Category: Medical Qualifiers: Basal cell carcinoma location: unspecified site Qualified Code(s): C44.91 - Basal cell carcinoma of skin, unspecified Plan HTN-controlled on current medications ADD-doing great on adderall. Depression is controlled Bunion-refer podiatry lesion concerning for BCC-derm referral placed Orders: Referrals Podiatry Referral M21.619 - Bunion of unspecified foot Dermatology Referral C44.91 - Basal cell carcinoma of skin, unspecified, L98.9 - Disorder of the skin and subcutaneous tissue, unspecified
[2025-03-26 09:11] VITALS: BP 130/76; PULSE 73; TEMP 36.2; O2SAT 99; BMI 30.5
--- OUTSIDE RECORDS SUMMARY | 2025-03-26 09:50 | XMS_ITS | Patient Health Record ---
Author Organization [facility] [employer] Address [address] [place] [address] [place] [address] Care Team Providers Care Sueding And Buffing Machine Operator Name Role Phone Macario Boateng Unavailable [phone] Reason For Referral No Information Problems Problem Type SNOMED Code ICD Code Onset Dates Problem Status W/U Status Risk Notes Problem Pain of left knee joint (finding) (786903836341 107) Pain in left knee (M25.562) Active confirmed Alexandr Problem Low back pain (358548714) Low back pain (M54.5) Active confirmed Alexandr Plan Of Treatment No Information
== END 2025-03-26 10:01 | disposition home or self-care (01) ==
LOC: HO.HMCHD 09:05
PROVIDERS: PCP Internal Medicine; Visit Provider Internal Medicine
DX: I10 Essential (primary) hypertension (principal); F32.4 Major depressive disorder, single episode, in partial remission; R41.840 Attention and concentration deficit; C44.91 Basal cell carcinoma of skin, unspecified

== ENCOUNTER → 2025-03-26 09:05 | Outpatient (BNVA) | payer BC, SELFPAY | PROVIDERS: PCP Internal Medicine; Visit Provider Internal Medicine | DX: I10 Essential (primary) hypertension (principal); F32.4 Major depressive disorder, single episode, in partial remission; R41.840 Attention and concentration deficit; C44.91 Basal cell carcinoma of skin, unspecified; M21.611 Bunion of right foot; Z79.899 Other long term (current) drug therapy; Z13.31 Encounter for screening for depression; Z13.30 Encounter for screening examination for mental health and behavioral disorders, unspecified | CPT/HCPCS: 96127 ==

== ENCOUNTER 2025-04-10 09:56 | Outpatient (REF) | payer BC, SELFPAY ==
[2025-04-10 10:14] LABS: MANUAL DIFF FLAG NO
--- OUTSIDE RECORDS SUMMARY | 2025-04-10 10:23 | XMS_ITS | Patient Health Record ---
Author Organization [facility] Address [address] [place] [address] [place] [address] Care Team Providers Care Physiatrist Name Role Phone Macario Boateng Unavailable [phone] Reason For Referral No Information Problems Problem Type SNOMED Code ICD Code Onset Dates Problem Status W/U Status Risk Notes Problem Pain of left knee joint (finding) (049850533032 107) Pain in left knee (M25.562) Active confirmed Alexandr Problem Low back pain (987305179) Low back pain (M54.5) Active confirmed Alexandr Plan Of Treatment No Information
--- OUTSIDE RECORDS SUMMARY | 2025-04-10 10:23 | XMS_ITS | Patient Health Record ---
Author Organization [facility] Address [address] [place] [id number] Care Team Providers Care Mussel Opener Name Role Phone Roger Oakley MD Primary Care Provider Sumit Alonso Jr Unavailable Allergies Allergen (clinical drug ingredient) Drug/Non Drug [...] Problem Status W/U Status Risk Notes Problem 8080526 Diverticulitis o f large intestine without perforation or abscess without bleeding (K57.32) Active confirmed Problem Diverticulitis (02999349) Diverticulitis (K57.92) Active confirmed Plan Of Treatment Future Test Test Name Order Date COLONOSCOPY 07/07/2013 COLONOSCOPY 01/11/2022 Insurance Providers Payer Name Payer Address Payer Phone Subscriber Number Group Number Insured Name Patient Relationship to Insured Coverage Start Date Coverage End Date [facility] [address] [place] [phone] [id number] LAYO VERAS Self - patient is the insured Medical (General) History Medical History History ICD Code Hypertension diverticulitis Hyperlipidemia Colonoscopy 11/14, hyperplast ic polyps, diverticulosis, internal hemorrhoids, ten-year followup Depression Surgical History Surgery Date(Month/Year) hernia repair elbow surgery-left Hospitalization History Reason Date(Month/Year) diverticulitis-[facility] 2021
[2025-04-10 10:56] LABS: Appearance Urine Clear; Glucose Urine UA Negative (Negative); PH 7.0 (5.0-9.0); Specific Gravity - Urine 1.010 (1.005-1.025)
[2025-04-10 10:56] LABS: Hematocrit 42.8 % (42.0-52.0); Hemoglobin 14.7 g/dl (14.0-18.0); Imm Gran Abs Auto 0.01 X10*3/uL (0.00-0.03); Imm Gran Pct Auto 0.2 % (0.0-0.4); Lymphocytes Absolute Auto 1.5 X10*3/uL (1.2-4.9); Mean Corpuscular HGB Conc 34.3 g/dl (31.0-36.0); Mean Corpuscular Hemoglobin 29.6 pg (27.0-33.0); Mean Corpuscular Volume 86.3 fL (80.0-98.0); NRBC Abs Auto 0.000 X10*3/uL (0.0-0.012); NRBC Pct Auto 0.0 /100WBC (0.0-0.2); Platelet Count 237 X10*3/uL (160-400); Red Blood Count 4.96 X10*6/uL (4.60-5.80); White Blood Count 6.0 X10*3/uL (4.8-10.8)
[2025-04-10 11:29] LABS: Alanine Aminotransferase 19 U/L (0-40); Albumin Level 4.6 g/dL (3.5-5.0); Alkaline Phosphatase 65 U/L (39-117); Anion Gap 12 (12-20); Aspartate Amino Transferase 18 U/L (5-37); Blood Urea Nitrogen 13 mg/dL (9-16); Calcium 9.5 mg/dL (8.4-10.2); Carbon Dioxide 27 mmol/L (22-29); Chloride 104 mmol/L (96-108); Cholesterol 141 mg/dL (<200); Estimated Glomerular Filt Rate > 60; HDL Cholesterol 35 mg/dL (>40); Potassium 4.6 mmol/L (3.3-5.1); Sodium 138 mmol/L (135-145); Total Protein 6.8 g/dL (6.5-8.0); Triglycerides 221 mg/dL (<150)
[2025-04-10 11:40] LABS: Prostate Specific Antigen 1.62 ng/mL (<0.05-4.0)
[2025-04-10 12:01] LABS: Hemoglobin A1C 149.4213 umol/L; Total Hemoglobin (HGBA1C) 3933.2673 umol/L
== END 2025-04-10 09:57 | disposition home or self-care (01) ==
LOC: HO.LAB 09:56
PROVIDERS: PCP Internal Medicine; Visit Provider Physician Assistant
DX: R63.4 Abnormal weight loss (principal); J20.9 Acute bronchitis, unspecified; J32.9 Chronic sinusitis, unspecified; Z12.5 Encounter for screening for malignant neoplasm of prostate; Z13.1 Encounter for screening for diabetes mellitus
CPT/HCPCS: 36415; 80048; 80061; 80076; 81003; 83036; 84153; 84443; 85025; 85652; 86140

== ENCOUNTER 2025-04-14 09:03 | Outpatient (AMB) | payer BC, SELFPAY ==
--- NOTE | 2025-04-14 09:07 | A.OFFPC_ITS ---
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 Required: No Accompanied by: Self / Same As Patient Allergies acetaminophen (From Percocet) Allergy (Verified 04/14/25 09:07) Nightmare oxycodone Adverse Reaction (Mild, Verified 04/14/25 09:07) Nausea and Vomiting Medication List - Last Reconciled 04/14/25 by MATHIEU Gaines Adderall XR 20 mg (dextroamphetamine-amphetamine) 20 mg PO DAILY NS aspirin 81 mg PO DAILY atorvastatin (Lipitor) 20 mg PO DAILY gemfibrozil 600 mg PO DAILY Lexapro (escitalopram oxalate) 20 mg PO BID NS losartan 1 tab PO DAILY Tobacco use date assessed: 12/19/24 Dental Screening Dental Screen Date: 12/19/24 HPI HPI Comments History of Present Illness Details 64-year-old female with history of BPH, hyperlipidemia, depression/anxiety, hypertension, hyperlipidemia, basal cell carcinoma, prediabetes, Peyronie's disease presents to the office today for evaluation and to establish care. Hypertension-blood pressure in the office today 124/68. On losartan. Hypercholesterolemia-compliant with atorvastatin 20 mg and gemfibrozil 600 mg daily. Last total cholesterol 169, LDL 96, triglycerides 206. stop emfibrozil Peyronie's disease-following with urology in [place]. Underwent cystoscopy without any malignancy identified. Will obtain records. Depression/lbxghzj-YHW-0 score 11. However, to questions with 3/3 related to fatigue and decreased energy. No SI/HI. Continues on Lexapro 20 mg twice daily- generic doesnt have same effect Basal cell carcinoma/psoriasis- needs new referral to derm l ADHD-managed with Adderall, has also noted weight loss with this Prediabetes-last A1c 5.6%. Following healthy diet TRESSA-noncompliant with CPAP due to incompatibility/intolerance Concerns: Reports bunions bilaterally Health maintenance: Last colonoscopy-02/10/2022 with 10 year follow-up advised. Dr. Barnes ROS: General: No fevers, malaise, unintentional weight loss HEENT: No blurred vision, diplopia. No sore throat, nasal congestion, rhinorrhea, sinus pain, ear pain Cardiovascular: No chest pain, palpitations, or leg edema Respiratory: No shortness of breath, wheezing, cough GI: No abdominal pain, nausea, vomiting, diarrhea, constipation, melena, hematochezia : No dysuria, hematuria, increased urinary frequency, decreased urinary output MSK: No myalgia, back pain see HPI Neuro: No headaches, weakness, paresthesias Skin: No rashes or lesions EXAM: Constitutional - Awake and Alert, No apparent distress Eyes - PERRL Cardiovascular - S1S2, RRR, No edema Respiratory - Normal lung expansion, Normal respiratory effort, No respiratory distress, CTA bilaterally Extremities - no calf tenderness bilaterally, no swelling Skin - Warm/Dry Neurological - Alert & oriented x3 Psychological - Appropriate affect [facility] Medical History (Updated 04/14/25 @ 09:40 by MATHIEU Gaines) TRESSA (obstructive sleep apnea) Rotator cuff arthropathy of right shoulder Depression Diverticulitis Hypercholesteremia Depression Hypertension Surgical History (Updated 04/13/25 @ 15:39 by Kaela Graham) H/O colonoscopy (~02/10/22) History of right inguinal hernia repair History of elbow surgery Family History Father Bladder cancer Myocardial infarct Paternal Grandmother Myocardial infarct Social History Housing: House Alcohol intake: never Patient Tobacco Use Status: Never used Tobacco e-Cigarette/Vaping Use: Never Used service: No Current occupational status: employed 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 Kamaljit Hood, Danielle Aaron, Fritz Lind and colleagues, with an educational keo from [employer] Physical exam (Primary Care) Vital Signs: Last Vital Signs Temp 97.0 F 04/14/25 09:12 Pulse 75 04/14/25 09:12 Resp 16 04/14/25 09:12 BP 124/68 04/14/25 09:12 Pulse Ox 97 04/14/25 09:12 Oxygen Delivery Method Room Air 04/14/25 09:12 BMI result Body Mass Index 30.2 Tobacco/Smoking Status: Tobacco use Status Tobacco use date assessed 12/19/24 04/14/25 09:07 Patient Tobacco Use Status Never used Tobacco 04/14/25 09:07 e-Cigarette/Vaping Use Never Used 04/14/25 09:07 Thrive Assessment: Date of Thrive Assessment Date Thrive assessed 03/10/25 04/14/25 09:07 Coding Level of Care Code Est Pt Level 4 (52418) Diagnoses Major depressive disorder in partial remission, unspecified whether recurrent F32.4 Depression Type: major depressive disorder Major depression recurrence: unspecified whether recurrent Active/Remission status: in partial remission Primary hypertension I10 Hypertension type: primary hypertension TRESSA (obstructive sleep apnea) G47.33 Bunion M21.619 Attention deficit R41.840 Assessment & Plan Assessment & Plan (1) Depression: Code(s): F32.9 - Major depressive disorder, single episode, unspecified Category: Medical Qualifiers: Depression Type: major depressive disorder Major depression recurrence: unspecified whether recurrent Active/Remission status: in partial remission Qualified Code(s): F32.4 - Major depressive disorder, single episode, in partial remission Plan: Uncontrolled. Advise he is taking too much Lexapro. Recommend Lexapro 20 mg daily. (2) Hypertension: Code(s): I10 - Essential (primary) hypertension Category: Medical Qualifiers: Hypertension type: primary hypertension Qualified Code(s): I10 - Essential (primary) hypertension Plan: Controlled. Continue current therapies (3) TRESSA (obstructive sleep apnea): Code(s): G47.33 - Obstructive sleep apnea (adult) (pediatric) Category: Medical Plan: Counseled on CPAP compliance. Referred to pulmonology. (4) Bunion: Code(s): M21.619 - Bunion of unspecified foot Category: Medical Plan: Can schedule appointment with Podiatry. (5) Attention deficit: Code(s): R41.840 - Attention and concentration deficit Category: Medical Plan: Continue Adderall Plan Follow-up as scheduled, labs to be completed as ordered Orders: Orders Liver Panel 7 Days E78.00 - Pure hypercholesterolemia, unspecified, E78.1 - Pure hyperglyceridemia Lipid Panel 7 Days E78.00 - Pure hypercholesterolemia, unspecified, E78.1 - Pure hyperglyceridemia LDL Cholesterol Direct 7 Days E78.00 - Pure hypercholesterolemia, unspecified, E78.1 - Pure hyperglyceridemia Creatine Kinase Total 04/14/25 E78.00 - Pure hypercholesterolemia, unspecified, E78.1 - Pure hyperglyceridemia Referrals Pulmonology Referral G47.33 - Obstructive sleep apnea (adult) (pediatric) Endocrinology Referral E78.1 - Pure hyperglyceridemia Dermatology Referral C44.91 - Basal cell carcinoma of skin, unspecified, L98.9 - Disorder of the skin and subcutaneous tissue, unspecified Medications: Changed From Lexapro (escitalopram oxalate) 20 mg PO BID 180 tabs 1RF NS To Lexapro (escitalopram oxalate) 20 mg PO DAILY 90 tabs 1RF NS Refilled Lexapro (escitalopram oxalate) 20 mg PO BID 180 tabs 1RF NS
[2025-04-14 09:12] VITALS: BP 124/68; PULSE 75; RESP 16; TEMP 36.1; O2SAT 97; BMI 30.2
--- OUTSIDE RECORDS SUMMARY | 2025-04-14 09:21 | XMS_ITS | Patient Health Record ---
Author Organization [facility] Address [address] [place] [address] [place] [address] Care Team Providers Care Side Splitter Name Role Phone Macario Boateng Unavailable [phone] Reason For Referral No Information Problems Problem Type SNOMED Code ICD Code Onset Dates Problem Status W/U Status Risk Notes Problem Pain of left knee joint (finding) (340541325432 107) Pain in left knee (M25.562) Active confirmed Alexandr Problem Low back pain (946137094) Low back pain (M54.5) Active confirmed Alexandr Plan Of Treatment No Information
--- OUTSIDE RECORDS SUMMARY | 2025-04-14 09:22 | XMS_ITS | Patient Health Record ---
Author Organization [facility] Address [address] [place] [address] Care Team Providers Care Repair Technician Name Role Phone Cele (RETIRED) Roger MARIE Primary Care Provide Sumit Varner Jr Unavailable Allergies Allergen (clinical drug ingredient) [...] Problem Status W/U Status Risk Notes Problem 7548383 Diverticulitis o f large intestine without perforation or abscess without bleeding (K57.32) Active confirmed Problem Diverticulitis (90714696) Diverticulitis (K57.92) Active confirmed Plan Of Treatment Future Test Test Name Order Date COLONOSCOPY 07/07/2013 COLONOSCOPY 01/11/2022 Insurance Providers Payer Name Payer Address Payer Phone Subscriber Number Group Number Insured Name Patient Relationship to Insured Coverage Start Date Coverage End Date [facility] [address] [place] [phone] [id number] LAYO VERAS Self - patient is the insured Medical (General) History Medical History History ICD Code Hypertension diverticulitis Hyperlipidemia Colonoscopy 11/14, hyperplast ic polyps, diverticulosis, internal hemorrhoids, ten-year followup Depression Surgical History Surgery Date(Month/Year) hernia repair elbow surgery-left Hospitalization History Reason Date(Month/Year) [place] [place]
== END 2025-04-14 10:08 | disposition home or self-care (01) ==
LOC: HO.HMCHD 09:04
PROVIDERS: PCP Internal Medicine; Visit Provider Physician Assistant
DX: F32.4 Major depressive disorder, single episode, in partial remission (principal); I10 Essential (primary) hypertension; G47.33 Obstructive sleep apnea (adult) (pediatric); M21.619 Bunion of unspecified foot; R41.840 Attention and concentration deficit

== ENCOUNTER 2025-05-20 10:20 | Outpatient (AMB) | payer BC, SELFPAY ==
--- NOTE | 2025-05-20 10:21 | MHC.PC.OV ---
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: No Accompanied by: Self / Same As Patient Allergies acetaminophen (From Percocet) Allergy (Verified 05/20/25 10:22) Nightmare oxycodone Adverse Reaction (Mild, Verified 05/20/25 10:22) Nausea and Vomiting Medication List - Last Reconciled 05/20/25 by MATHIEU Gaines Adderall XR 20 mg (dextroamphetamine-amphetamine) 20 mg PO DAILY NS aspirin 81 mg PO DAILY atorvastatin (Lipitor) 20 mg PO DAILY ibuprofen 800 mg PO Q8H PRN Lexapro (escitalopram oxalate) 20 mg PO DAILY NS lidocaine 4% (AsperFlex (lidocaine)) 1 patch topical DAILY PRN losartan 1 tab PO DAILY methocarbamol 750 mg PO Q8H PRN Tobacco use date assessed: 03/26/25 Dental Screening Dental Screen Date: 12/19/24 HPI HPI Comments History of Present Illness Details 64-year-old male presents to the office today for evaluation of back pain ongoing for about 10 days. He does physical work and states his job recently changed requiring lifting heavy objects with bending and twisting. He states that at some point, he may have injured himself resulting in a spasm in the right mid back. There was no radiation of the pain, numbness or tingling, or radiculopathy. He is able to ambulate independently but has not been able to work due to the pain limiting his ability to perform work responsibilities. He still reports significant pain and often finds it difficult to find a comfortable position. He did order a low back brace which did not help. He has been taking 600 mg of ibuprofen 3 times daily. Feels symptoms are worse at nighttime, difficult to find a comfortable position. No midline tenderness. He is also concerned over a growth in the right mid back that was noted several months ago. It is irregularly shaped and light brown and he feels that it is increasing in size and is now itchy. No pain or drainage. ROS: General: No fevers, malaise, unintentional weight loss HEENT: No blurred vision, diplopia. No sore throat, nasal congestion, rhinorrhea, sinus pain, ear pain Cardiovascular: No chest pain, palpitations, or leg edema Respiratory: No shortness of breath, wheezing, cough GI: No abdominal pain, nausea, vomiting, diarrhea, constipation, melena, hematochezia : No dysuria, hematuria, increased urinary frequency, decreased urinary output MSK: No myalgia, back pain Neuro: No headaches, weakness, paresthesias Skin: No rashes or lesions EXAM: Constitutional - Awake and Alert, No apparent distress Eyes - PERRL Cardiovascular - S1S2, RRR, No edema Respiratory - Normal lung expansion, Normal respiratory effort, No respiratory distress, CTA bilaterally Extremities - no calf tenderness bilaterally, no swelling MSK - no midline tenderness of the thoracic spine. There is a palpable spasm of the right paraspinal area at the level of about T8-T10. Skin - Warm/Dry Neurological - Alert & oriented x3 Psychological - Appropriate affect [facility] Medical History (Updated 05/20/25 @ 10:44 by MATHIEU Gaines) TRESSA (obstructive sleep apnea) Rotator cuff arthropathy of right shoulder Depression Diverticulitis Hypercholesteremia Depression Hypertension Surgical History (Updated 04/13/25 @ 15:39 by Kaela Graham) H/O colonoscopy (~02/10/22) History of right inguinal hernia repair History of elbow surgery Family History Father Bladder cancer Myocardial infarct Paternal Grandmother Myocardial infarct Social History Housing: House Alcohol intake: never Patient Tobacco Use Status: Never used Tobacco e-Cigarette/Vaping Use: Never Used service: No Current occupational status: employed 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 How often do you have a drink containing alcohol?: 2-4 times a month 2. How many drinks containing alcohol do you have on a typical day when you are drinking?: 1 or 2 Total Score: 2 BARBARA-7 AMB Questionnaire BARBARA-7 Date BARBARA - 7 assessed: 03/10/25 Source: Developed by Drs. Kamaljit Hood, Danielle Aaron, Fritz Lind and colleagues, with an educational keo from [employer]. Physical exam (Primary Care) Vital Signs: Last Vital Signs Temp 97.1 F 05/20/25 10:27 Pulse 68 05/20/25 10:27 Resp 17 05/20/25 10:27 BP 130/66 05/20/25 10:27 Pulse Ox 99 05/20/25 10:27 Oxygen Delivery Method Room Air 05/20/25 10:27 Tobacco/Smoking Status: Tobacco use Status Tobacco use date assessed 03/26/25 05/20/25 10:24 Patient Tobacco Use Status Never used Tobacco 05/20/25 10:24 e-Cigarette/Vaping Use Never Used 05/20/25 10:24 Thrive Assessment: Date of Thrive Assessment Date Thrive assessed 03/10/25 05/20/25 10:24 Coding Level of Care Code Est Pt Level 4 (45777) Diagnoses Spasm of thoracic back muscle M62.830 Atypical nevus of back D22.5 Assessment & Plan Assessment & Plan (1) Spasm of thoracic back muscle: Code(s): M62.830 - Muscle spasm of back Category: Medical Plan: Recommend ibuprofen 800 mg 3 times daily as needed. Can use lidocaine patches over the area. He is also given a prescription for Robaxin is counseled on side effects including drowsiness. Use caution while driving. He is referred to physical therapy. He is given work no and is advised to follow up in the office in 2 weeks. (2) Atypical nevus of back: Code(s): D22.5 - Melanocytic nevi of trunk Category: Medical Plan: Referral placed to dermatology Plan Follow-up in 2 weeks Orders: Orders PT Evaluation and Treatment 05/20/25 M62.830 - Muscle spasm of back Referrals Dermatology Referral D22.5 - Melanocytic nevi of trunk, D22.9 - Melanocytic nevi, unspecified Medications: New ibuprofen 800 mg PO Q8H PRN 90 tabs 0RF pain methocarbamol 750 mg PO Q8H PRN 60 tabs 0RF muscle spasm lidocaine 4% (AsperFlex (lidocaine)) 1 patch topical DAILY PRN 30 ea 0RF pain
[2025-05-20 10:27] VITALS: BP 130/66; PULSE 68; RESP 17; TEMP 36.2; O2SAT 99
--- OUTSIDE RECORDS SUMMARY | 2025-05-20 11:34 | XMS_ITS | Patient Health Record ---
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 Role Phone Cele (RETIRED) Roger MARIE [...] Problem Status W/U Status Risk Notes Problem 4218309 Diverticulitis o f large intestine without perforation or abscess without bleeding (K57.32) Active confirmed Problem Diverticulitis (K57.92) Active confirmed Plan Of Treatment Future Test Test Name Order Date COLONOSCOPY 07/07/2013 COLONOSCOPY 01/11/2022 Insurance Providers Payer Name Payer Address Payer Phone Subscriber Number Group Number Insured Name Patient Relationship to Insured Coverage Start Date Coverage End Date [facility] [address] [place] [phone] [id number] LAYO VERAS Self - patient is the insured Medical (General) History Medical History History ICD Code Hypertension diverticulitis Hyperlipidemia Colonoscopy 11/14, hyperplast ic polyps, diverticulosis, internal hemorrhoids, ten-year followup Depression Surgical History Surgery Date(Month/Year) hernia repair elbow surgery-left Hospitalization History Reason Date(Month/Year) [place] [place]
--- OUTSIDE RECORDS SUMMARY | 2025-05-20 11:34 | XMS_ITS | Clinical Summary ---
Author Organization [facility] Address [facility] Expert [facility] [address] [place] [phone] Phone Care Team Providers Care Harness Puller Name Role Phone Roger Oakley MD Primary Care Provider Allergies No known active allergies Medications ESCITALOPRAM OXALATE (LEXAPRO ORAL) Active ATORVASTATIN CALCIUM (LIPITOR ORAL) Active GEMFIBROZIL ORAL Act joaquin lisinopril (PRINIVIL,ZESTRI L) 20 MG tablet Take 20 mg by mouth daily. Active Social History Tobacco Use Types Packs/Day Years Used Date Smoking Tobacco: Never Assessed Education Answer Date Recorded Are you interested in more education? Not on karrie e 02/08/2023 Are you concerned about learning? Not on file 02/08/2023 No 02/08/2023 No 02/08/2023 Digital Access Answer Date Recorded No 02/25/2023 No 02/25/2023 Reliable internet access at home? Not on file 02/25/2023 Device with a working camera? Not on file Sex and Gender Information Value Date Recorded Sex Assigned at Not on file Legal Sex Male 6:57 PM EST Gender Identity Not on file Sexual Orientation Not on file Last Filed Vital Signs Vital Sign Reading Time Taken Comments Blood Pressure 144/83 08/31/2019 3:45 PM EST Pulse 79 08/31/2019 3:45 PM EST Temperature 37.1 C (98.8 F) 08/31/2019 3:45 PM EST Respiratory Rate - - Oxygen Saturation 97% 08/31/2019 3:45 PM EST Inhaled Oxygen Concentration - - Weight 108.9 kg (240 lb) 08/31/2019 3:45 PM EST Height 182.9 cm (6') 04/02/2017 11:05 AM EDT Body Mass Index 32.55 04/02/2017 11:05 AM EDT Plan of Treatment Health Maintenance Due Date Last Done Comments Adult Td,Tdap Booster 1960 CREATININE LEVEL 1962 LIPID PANEL 1962 POTASSIUM LEVEL 1962 DEPRESSION SCREENING 1974 SMOKING Hx and SMOKELESS TOB ACCO SCREENING 1975 HEPATITIS C SCREENING 1980 HIV ONE-TIME SCREENING (18-6 5 YEARS) 1980 COLOGUARD 2007 COLONOSCOPY 2007 COLORECTAL CANCER SCREENING 2007 FIT TEST 2007 FOBT 2007 SIGMOIDOSCOPY 2007 VIRTUAL COLONOSCOPY 2007 PNEUMOCOCCAL VACCINES (50+ y ears) (1 of 1 - PCV) 2012 ZOSTER VACCINES (1 of 2) 2012 COVID-19 VACCINE (2 - 2023-2 5 season) 2024 01/12/2021 RSV VACCINE (1 - 1-dose 75+ series) 2037 HEPATITIS A VACCINES Aged Out No long er eligible based on patient's age to complete this topic HIB VACCINES Aged Out No longer eligi ble based on patient's age to complete this topic MENINGOCOCCAL VACCINES (ACWY) Aged Out No longer eligible based on patient's age to complete this topic MENINGOCOCCAL VACCINES (B) Aged Out N o longer eligible based on patient's age to complete this topic Medical Devices Not on file Insurance [facility] [address] [address] [address] [address] [place] [address] [address] [address] PPO Care Teams Harness Puller Relationship Specialty Start Date End Date Roger Oakley MD [address] [place] [id number] PCP - General 07/19/17 Additional Source Comments The information contained in this document represents components of the legal health record. It is not the complete legal health record.[facility]
--- OUTSIDE RECORDS SUMMARY | 2025-05-20 11:34 | XMS_ITS | Patient Health Record ---
Author Organization [facility] Address [address] [address] Care Team Providers Care Golf Cart Attendant Name Role Phone Macario Boateng Unavailable [phone] Reason For Referral No Information Problems Problem Type SNOMED Code ICD Code Onset Dates Problem Status W/U Status Risk Notes Problem Pain of left knee joint (finding) (901371082798 107) Pain in left knee (M25.562) Active confirmed Alexandr Problem Low back pain (229729687) Low back pain (M54.5) Active confirmed Alexandr Plan Of Treatment No Information
== END 2025-05-20 11:06 | disposition home or self-care (01) ==
LOC: HO.HMCHD 10:21
PROVIDERS: PCP Internal Medicine; Visit Provider Physician Assistant
DX: M62.830 Muscle spasm of back (principal); D22.5 Melanocytic nevi of trunk

== ENCOUNTER 2025-06-03 08:40 | Outpatient (AMB) | payer BC, SELFPAY ==
--- NOTE | 2025-06-03 08:43 | A.OFFPC_ITS ---
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 Accompanied by: Self / Same As Patient Allergies acetaminophen (From Percocet) Allergy (Verified 06/03/25 08:44) Nightmare oxycodone Adverse Reaction (Mild, Verified 06/03/25 08:44) Nausea and Vomiting Medication List - Last Reconciled 06/03/25 by MATHIEU Gaines Adderall XR 20 mg (dextroamphetamine-amphetamine) 20 mg PO DAILY NS aspirin 81 mg PO DAILY atorvastatin (Lipitor) 20 mg PO DAILY ibuprofen 800 mg PO Q8H PRN Lexapro (escitalopram oxalate) 20 mg PO DAILY NS lidocaine 4% (AsperFlex (lidocaine)) 1 patch topical DAILY PRN losartan 1 tab PO DAILY methocarbamol 750 mg PO Q8H PRN omega-3 fatty acids 1,000 mg PO DAILY Tobacco use date assessed: 03/26/25 Dental Screening Dental Screen Date: 12/19/24 HPI HPI Comments History of Present Illness Details 64-year-old male presents to the office today for evaluation of back pain ongoing for about 10 days. From initial visit He does physical work and states his job recently changed requiring lifting heavy objects with bending and twisting. He states that at some point, he may have injured himself resulting in a spasm in the right mid back. There was no radiation of the pain, numbness or tingling, or radiculopathy. He is able to ambulate independently but has not been able to work due to the pain limiting his ability to perform work responsibilities. He still reports significant pain and often finds it difficult to find a comfortable position. He did order a low back brace which did not help. He has been taking 600 mg of ibuprofen 3 times daily. Feels symptoms are worse at nighttime, difficult to find a comfortable position. No midline tenderness. He reports over the last 2 weeks, his pain has improved. At rest, the pain is 2/10. However with bending/standing as well as debp-ii-cfcy motion, the pain does exacerbate. He has been trying to strengthen his back and will be going through physical therapy in the upcoming week. He has been using Robaxin which he does find helpful at night as well as occasional ibuprofen and lidocaine patch use. He is still experiencing cramping in the bilateral calves ongoing months. Electrolytes, renal function, CPK within normal limits. Cholesterol levels also at goal. Unlikely to be caused by atorvastatin. Question venous insufficiency Left thumb pain-reports he had a barrel dropped on his thumb about 2 weeks ago. Since then, there has been pain, swelling and decreased range of motion. ROS: see hpi EXAM: Constitutional - Awake and Alert, No apparent distress Eyes - PERRL Cardiovascular - S1S2, RRR, No edema Respiratory - Normal lung expansion, Normal respiratory effort, No respiratory distress, CTA bilaterally Extremities - no calf tenderness bilaterally, no swelling Skin - Warm/Dry MSK - midline TTP of the thoracic spine at the level of T9-T12 with left-sided paraspinal tenderness at that level. Experiences pain with adduction of the left shoulder. Mild swelling L 1st MCP joint with full rom. Neurological - Alert & oriented x3. 5/5 strength Psychological - Appropriate affect [facility] Medical History (Updated 06/03/25 @ 09:36 by MATHIEU Gaines) TRESSA (obstructive sleep apnea) Rotator cuff arthropathy of right shoulder Depression Diverticulitis Hypercholesteremia Depression Hypertension Surgical History (Updated 04/13/25 @ 15:39 by Kaela Graham) H/O colonoscopy (~02/10/22) History of right inguinal hernia repair History of elbow surgery Family History Father Bladder cancer Myocardial infarct Paternal Grandmother Myocardial infarct Social History Housing: House Alcohol intake: never Patient Tobacco Use Status: Never used Tobacco e-Cigarette/Vaping Use: Never Used service: No Current occupational status: employed 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 Kamaljit Hood, Danielle Aaron, Fritz Lind and colleagues, with an educational keo from [employer]. Physical exam (Primary Care) Vital Signs: Last Vital Signs Temp 96.6 F L 06/03/25 08:49 Pulse 81 06/03/25 08:49 Resp 16 06/03/25 08:49 BP 122/80 06/03/25 08:49 Pulse Ox 99 06/03/25 08:49 Oxygen Delivery Method Room Air 06/03/25 08:49 BMI result Body Mass Index 31.3 Tobacco/Smoking Status: Tobacco use Status Tobacco use date assessed 03/26/25 06/03/25 08:51 Patient Tobacco Use Status Never used Tobacco 06/03/25 08:51 e-Cigarette/Vaping Use Never Used 06/03/25 08:51 Thrive Assessment: Date of Thrive Assessment Date Thrive assessed 03/10/25 06/03/25 08:51 Coding Level of Care Code Est Pt Level 4 (13065) Diagnoses Spasm of thoracic back muscle M62.830 Pain of left thumb M79.645 Calf cramp R25.2 Assessment & Plan Assessment & Plan (1) Spasm of thoracic back muscle: Code(s): M62.830 - Muscle spasm of back Category: Medical Plan: Proceed with physical therapy. Continue ibuprofen, lidocaine patches, robaxin. Gentle strengthening exercises. Work note provided (2) Pain of left thumb: Code(s): M79.645 - Pain in left finger(s) Category: Medical Plan: XR left thumb ordered. Ibuprofen as needed, ice as needed (3) Calf cramp: Code(s): R25.2 - Cramp and spasm Category: Medical Plan: Electrolyte levels and CPK all normal. Less likely to be related to statin. Possibly related to venous insufficiency. Recommend compression stockings, leg elevation, increased hydration. Plan Follow up in the office in 2 weeks for re-evaluation Orders: Orders XR finger LT min 2V Today M79.645 - Pain in left finger(s) Medications: Refilled methocarbamol 750 mg PO Q8H PRN 60 tabs 0RF muscle spasm
[2025-06-03 08:49] VITALS: BP 122/80; PULSE 81; RESP 16; TEMP 35.9; O2SAT 99; BMI 31.3
--- OUTSIDE RECORDS SUMMARY | 2025-06-03 09:08 | XMS_ITS | Clinical Summary ---
Author Organization [facility] Address [facility] [employer] [facility] [address] [place] [phone] Phone Care Team Providers Care Charter Coordinator Name Role Phone Roger Oakley MD Primary [...] (2 - 2023-2 5 season) 2024 01/12/2021 INFLUENZA VACCINE (#1) 2025 RSV VACCINE (1 - 1-dose 75+ series) [...] topic Medical Devices Not on file Insurance [facility] [place] [address] [place] [address] [place] [address] [place] [address] [place] [address] [address] [place] [address] [place] [place] [address] PPO PPO PPO PPO Care Teams Charter Coordinator Relationship Specialty Start Date End Date Roger Oakley MD [address] [place] [address] Dr Zacarias, JOVANA [id number] PCP - General 07/19/17 Additional Source Comments The information contained in this document represents components of the legal health record. It is not the complete legal health record.[facility]
--- OUTSIDE RECORDS SUMMARY | 2025-06-03 09:08 | XMS_ITS | Patient Health Record ---
Author Organization [facility] Address [address] [place] [address] Care Team Providers Care Manual Equipment Mechanic Name Role Phone Cele (RETIRED) Roger MARIE Primary Care Provide Sumit Varner Jr Unavailable [phone] Allergies Allergen (clinical drug ingredient) Drug/Non [...] Problem Status W/U Status Risk Notes Problem [id number] Diverticulitis o f large intestine without perforation or abscess without bleeding (K57.32) Active confirmed Problem Diverticulitis (52783744) Diverticulitis (K57.92) Active confirmed Plan Of Treatment Future Test Test Name Order Date COLONOSCOPY 07/07/2013 COLONOSCOPY 01/11/2022 Insurance Providers Payer Name Payer Address Payer Phone Subscriber Number Group Number Insured Name Patient Relationship to Insured Coverage Start Date Coverage End Date [facility] [address] [place] [phone] [id number] LAYO VERAS Self - patient is the insured Medical (General) History Medical History History ICD Code Hypertension diverticulitis Hyperlipidemia Colonoscopy 11/14, hyperplast ic polyps, diverticulosis, internal hemorrhoids, ten-year followup Depression Surgical History Surgery Date(Month/Year) hernia repair elbow surgery-left Hospitalization History Reason Date(Month/Year) [place] [place]
--- OUTSIDE RECORDS SUMMARY | 2025-06-03 09:08 | XMS_ITS | Patient Health Record ---
Author Organization [facility] Address [address] [place] [address] Care Team Providers Care Cdc Associate Name Role Phone Macario Boateng Unavailable [phone] Reason For Referral No Information Problems Problem Type SNOMED Code ICD Code Onset Dates Problem Status W/U Status Risk Notes Problem Pain of left knee joint (finding) (201369743189 107) Pain in left knee (M25.562) Active confirmed Alexandr Problem Low back pain (313251703) Low back pain (M54.5) Active confirmed Alexandr Plan Of Treatment No Information
== END 2025-06-03 09:11 | disposition home or self-care (01) ==
LOC: HO.HMCHD 08:41
PROVIDERS: PCP Internal Medicine; Visit Provider Physician Assistant
DX: M62.830 Muscle spasm of back (principal); M79.645 Pain in left finger(s)

== ENCOUNTER 2025-06-17 09:15 | Outpatient (AMB) | payer BC, SELFPAY ==
--- NOTE | 2025-06-17 09:17 | A.OFFPC_ITS ---
Vital Signs 06/17/25 09:22 Height 6 ft Weight 105.233 kg BMI 31.5 BP 134/90 H Respiration 16 Pulse 67 Pulse Source Pulse Oximeter Temp 97.3 F Temp Source Temporal Artery Scan Pulse Oximetry (%) 98 Oxygen Delivery Method Room Air Intake Visit Reasons: 2 week F/U Launch Leader Required: No Accompanied by: Self / Same As Patient Allergies acetaminophen (From Percocet) Allergy (Verified 06/17/25 09:19) Nightmare oxycodone Adverse Reaction (Mild, Verified 06/17/25 09:19) Nausea and Vomiting Tobacco use date assessed: 03/26/25 Dental Screening Dental Screen Date: 12/19/24 HPI HPI Comments History of Present Illness Details 64-year-old male presents to the office today for follow up on thoracic strain following a work injury. See prior OV notes. Reports symptoms are unchanged. Has first PT appt today. There has been some improvement in pain but still feels he is unable to return to work given the nature of his job- lifting and twisting heavy objects. This exacerbated his pain. He has been doing exercises. Initially seen with PFML started 05/18 and has been extended due to ongoing pain limiting ability to work. No weakness or paresthesias ROS: see hpi EXAM: Constitutional - Awake and Alert, No apparent distress Eyes - PERRL Cardiovascular - S1S2, RRR, No edema Respiratory - Normal lung expansion, Normal respiratory effort, No respiratory distress, CTA bilaterally Extremities - no calf tenderness bilaterally, no swelling Skin - Warm/Dry MSK - midline TTP of the thoracic spine at the level of T9-T12 with left-sided paraspinal tenderness at that level. Experiences pain with adduction of the left shoulder. Neurological - Alert & oriented x3. 5/5 strength Psychological - Appropriate affect [facility] Medical History (Updated 06/03/25 @ 09:36 by MATHIEU Gaines) TRESSA (obstructive sleep apnea) Rotator cuff arthropathy of right shoulder Depression Diverticulitis Hypercholesteremia Depression Hypertension Surgical History (Updated 04/13/25 @ 15:39 by Kaela Graham) H/O colonoscopy (~02/10/22) History of right inguinal hernia repair History of elbow surgery Family History Father Bladder cancer Myocardial infarct Paternal Grandmother Myocardial infarct Social History Housing: House Alcohol intake: never Patient Tobacco Use Status: Never used Tobacco e-Cigarette/Vaping Use: Never Used service: No Current occupational status: employed 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 Kamaljit Hood, Danielle Aaron, Fritz Lind and colleagues, with an educational keo from [employer]. Physical exam (Primary Care) Vital Signs: Last Vital Signs Temp 97.3 F 06/17/25 09:22 Pulse 67 06/17/25 09:22 Resp 16 06/17/25 09:22 BP 134/90 H 06/17/25 09:22 Pulse Ox 98 06/17/25 09:22 Oxygen Delivery Method Room Air 06/17/25 09:22 BMI result Body Mass Index 31.5 Tobacco/Smoking Status: Tobacco use Status Tobacco use date assessed 03/26/25 06/17/25 09:24 Patient Tobacco Use Status Never used Tobacco 06/17/25 09:24 e-Cigarette/Vaping Use Never Used 06/17/25 09:24 Thrive Assessment: Date of Thrive Assessment Date Thrive assessed 03/10/25 06/17/25 09:24 Coding Level of Care Code Est Pt Level 3 (01831) Diagnoses Spasm of thoracic back muscle M62.830 Assessment & Plan Assessment & Plan (1) Spasm of thoracic back muscle: Code(s): M62.830 - Muscle spasm of back Category: Medical Plan: Proceed with physical therapy. Continue ibuprofen, lidocaine patches, robaxin. Gentle strengthening exercises. Work note provided for extension Plan Follow up in the office in 2 weeks for re-evaluation
[2025-06-17 09:22] VITALS: BP 134/90; PULSE 67; RESP 16; TEMP 36.3; O2SAT 98; BMI 31.5
--- OUTSIDE RECORDS SUMMARY | 2025-06-17 10:53 | XMS_ITS | Patient Health Record ---
Author Organization [facility] Address [address] [address] Care Team Providers Care Admissions Manager Name Role Phone Macario Boateng Unavailable [phone] Reason For Referral No Information Problems Problem Type SNOMED Code ICD Code Onset Dates Problem Status W/U Status Risk Notes Problem Pain of left knee joint (finding) (580999181464 107) Pain in left knee (M25.562) Active confirmed Alexandr Problem Low back pain (455570802) Low back pain (M54.5) Active confirmed Alexandr Plan Of Treatment No Information
--- OUTSIDE RECORDS SUMMARY | 2025-06-17 10:54 | XMS_ITS | Patient Health Record ---
Author Organization [facility] Address [address] [place] [address] Care Team Providers Care Smash Piecer Name Role Phone Cele (RETIRED) Roger MARIE Primary Care Provide Sumit Varner Jr Unavailable [phone] Allergies Allergen (clinical drug ingredient) Drug/Non [...] Problem Status W/U Status Risk Notes Problem 0267181 Diverticulitis o f large intestine without perforation or abscess without bleeding (K57.32) Active confirmed Problem Diverticulitis (27186630) Diverticulitis (K57.92) Active confirmed Plan Of Treatment Future Test Test Name Order Date COLONOSCOPY 07/07/2013 COLONOSCOPY 01/11/2022 Insurance Providers Payer Name Payer Address Payer Phone Subscriber Number Group Number Insured Name Patient Relationship to Insured Coverage Start Date Coverage End Date [facility] [address] [place] [phone] [id number] LAYO VERAS Self - patient is the insured Medical (General) History Medical History History ICD Code Hypertension diverticulitis Hyperlipidemia Colonoscopy 11/14, hyperplast ic polyps, diverticulosis, internal hemorrhoids, ten-year followup Depression Surgical History Surgery Date(Month/Year) hernia repair elbow surgery-left Hospitalization History Reason Date(Month/Year) diverticulitis-[facility] [place]
--- OUTSIDE RECORDS SUMMARY | 2025-06-17 10:54 | XMS_ITS | Clinical Summary ---
Author Organization [facility] Address [facility] Site [employer] [facility] [address] [place] [address] Phone Care Team Providers Care Tree Killer Name Role Phone Roger Oakley MD Primary [...] topic Medical Devices Not on file Insurance [facility] [place] [address] [place] [address] [place] [address] [place] [address] [place] [address] [place] [address] [place] [address] [place] [address] [place] [place] [address] PPO PPO PPO PPO Care Teams Tree Killer Relationship Specialty Start Date End Date Roger Oakley MD [address] [place] [address] Dr Zacarias, JOVANA [address] PCP - General 07/19/17 Additional Source Comments The information contained in this document represents components of the legal health record. It is not the complete legal health record.[facility]
== END 2025-06-17 10:36 | disposition home or self-care (01) ==
LOC: HO.HMCHD 09:16
PROVIDERS: PCP Internal Medicine; Visit Provider Physician Assistant
DX: M62.830 Muscle spasm of back (principal)

== ENCOUNTER 2025-06-26 16:06 | Outpatient (REF) | payer BC, SELFPAY ==
--- NOTE | ~2025-06-26 | XR_ITS ---
EXAMINATION: XR FINGER, LEFT CLINICAL INFORMATION: M79.645 - Pain in left finger(s) COMPARISON: None available. TECHNIQUE: PA hand and oblique and lateral views of the left thumb. FINDINGS: The bones and soft tissues are normal. No fracture. Alignment is anatomic. Joint spaces are maintained. Somewhat linear calcification is present near the sigmoid notch of radius likely within trying the triangular fibrocartilage. XR/XR finger LT min 2V IMPRESSION: No acute abnormality. Probable chondrocalcinosis involving triangular fibrocartilage. Electronically signed by: Genaro Sánchez MD 06/26/2025 04:44 PM EDT
--- OUTSIDE RECORDS SUMMARY | 2025-06-26 16:13 | XMS_ITS | Patient Health Record ---
Author Organization [facility] Address [address] [place] [address] Care Team Providers Care Rolled Gold Plater Name Role Phone Macario Boateng Unavailable [phone] Reason For Referral No Information Problems Problem Type SNOMED Code ICD Code Onset Dates Problem Status W/U Status Risk Notes Problem Pain of left knee joint (finding) (935660566240 107) Pain in left knee (M25.562) Active confirmed Alexandr Problem Low back pain (752113515) Low back pain (M54.5) Active confirmed Alexandr Plan Of Treatment No Information
--- OUTSIDE RECORDS SUMMARY | 2025-06-26 16:14 | XMS_ITS | Clinical Summary ---
Author Organization [facility] Address [facility] [employer] [facility] [address] [place] [address] Phone Care Team Providers Care Flight Engineer Performance Qualified Name Role Phone Roger Oakley MD Primary [...] 2012 ZOSTER VACCINES (1 of 2) 2012 INFLUENZA VACCINE (#1) 2025 COVID-19 VACCINE (2 - 2024-2 6 season) 2025 01/12/2021 RSV VACCINE (1 - 1-dose 75+ [...] topic Medical Devices Not on file Insurance [facility] [place] [address] [place] [address] [place] [place] [address] [address] [place] [address] [place] [place] [address] [place] [place] [address] PPO PPO PPO PPO Care Teams Flight Engineer Performance Qualified Relationship Specialty Start Date End Date Roger Oakley MD [address] [place] [address] Dr Zacarias, JOVANA [address] PCP - General 07/19/17 Additional Source Comments The information contained in this document represents components of the legal health record. It is not the complete legal health record.[facility]
--- OUTSIDE RECORDS SUMMARY | 2025-06-26 16:14 | XMS_ITS | Patient Health Record ---
Author Organization [facility] Address [address] [place] [address] Care Team Providers Care Ocean Freight Agent Name Role Phone Cele (RETIRED) Roger MARIE [...] Problem Status W/U Status Risk Notes Problem 6374825 Diverticulitis o f large intestine without perforation or abscess without bleeding (K57.32) Active confirmed Problem Diverticulitis (11800315) Diverticulitis (K57.92) Active confirmed Plan Of Treatment Future Test Test Name Order Date COLONOSCOPY 07/07/2013 COLONOSCOPY 01/11/2022 Insurance Providers Payer Name Payer Address Payer Phone Subscriber Number Group Number Insured Name Patient Relationship to Insured Coverage Start Date Coverage End Date [facility] [address] [place] [address] [id number] LAYO VERAS Self - patient is the insured Medical (General) History Medical History History ICD Code Hypertension diverticulitis Hyperlipidemia Colonoscopy 11/14, hyperplast ic polyps, diverticulosis, internal hemorrhoids, ten-year followup Depression Surgical History Surgery Date(Month/Year) hernia repair elbow surgery-left Hospitalization History Reason Date(Month/Year) [place] [place]
== END 2025-06-26 16:07 | disposition home or self-care (01) ==
LOC: HO.XRAY 16:06
PROVIDERS: PCP Internal Medicine; Visit Provider Physician Assistant
DX: M79.645 Pain in left finger(s) (principal)
CPT/HCPCS: 73140

== ENCOUNTER → 2025-06-26 16:09 | Outpatient (BNV) | payer BC, SELFPAY | PROVIDERS: PCP Internal Medicine; Visit Provider Radiology Diagnostic Radiology | DX: M79.645 Pain in left finger(s) (principal) | CPT/HCPCS: 73140 ==

== ENCOUNTER 2025-07-01 07:59 | Outpatient (AMB) | payer BC, SELFPAY ==
--- NOTE | 2025-07-01 08:02 | A.OFFPC_ITS ---
Vital Signs 07/01/25 08:09 Height 6 ft Weight 104.78 kg BMI 31.3 BP 140/78 H Pulse 76 Pulse Source Pulse Oximeter Temp 96.9 F Temp Source Temporal Artery Scan Pulse Oximetry (%) 98 Oxygen Delivery Method Room Air Intake Visit Reasons: 2 week F/U Aquaculturist Required: No Accompanied by: Self / Same As Patient Allergies acetaminophen (From Percocet) Allergy (Verified 07/01/25 08:02) Nightmare oxycodone Adverse Reaction (Mild, Verified 07/01/25 08:02) Nausea and Vomiting Tobacco use date assessed: 03/26/25 Dental Screening Dental Screen Date: 12/19/24 HPI HPI Comments History of Present Illness Details 64-year-old male presents to the office today for follow up on thoracic strain following a work injury. See prior OV notes. Reports symptoms have improved. Has been participating in PT with good improvement in his thoracic back pain. However, he has now developed pain in the low back and SI joints. He was noted by therapist to have a twisted back and they felt part up the upper back pain was from compensation then exacerbated by work injury as previously evaluated. He tells me he has been laid off. Has been on PFML since 05/18 with continuation after multiple reevaluation. Also doing exercises at home. No weakness or paresthesias or radiation of pain. Using ibuprofen and Robaxin Scalp dermatitis- following with journeyman powerhouse operator who prescribed fluorouracil to use of the scalp. Due to the number of lesions, unable to freeze each of these off Left thumb pain-reports he had a barrel dropped on his thumb about 2 weeks ago. Since then, there has been pain, swelling and decreased range of motion. XR showed Probable chondrocalcinosis involving triangular fibrocartilage. Looking for referral to ortho ADHD- adderal with good management of symptoms Hypertension-blood pressure slightly elevated 140/78. Compliant with losartan Hyperlipidemia-on atorvastatin 20 mg daily. Last LDL 62, at goal Depression-stable on Lexapro ROS: see hpi EXAM: Constitutional - Awake and Alert, No apparent distress Eyes - PERRL Cardiovascular - S1S2, RRR, No edema Respiratory - Normal lung expansion, Normal respiratory effort, No respiratory distress, CTA bilaterally Extremities - no calf tenderness bilaterally, no swelling Skin - Warm/Dry MSK - midline TTP of the thoracic spine at the level of T9-T12 with left-sided paraspinal tenderness at that level. Experiences pain with adduction of the left shoulder. Neurological - Alert & oriented x3. 5/5 strength Psychological - Appropriate affect PFSH Medical History (Updated 07/01/25 @ 08:28 by MATHIEU Gaines) Chronic low back pain SI (sacroiliac) joint dysfunction TRESSA (obstructive sleep apnea) Rotator cuff arthropathy of right shoulder Depression Diverticulitis Hypercholesteremia Depression Hypertension Surgical History (Updated 04/13/25 @ 15:39 by Kaela Graham) H/O colonoscopy (~02/10/22) History of right inguinal hernia repair History of elbow surgery Family History Father Bladder cancer Myocardial infarct Paternal Grandmother Myocardial infarct Social History Housing: House Alcohol intake: never Patient Tobacco Use Status: Never used Tobacco e-Cigarette/Vaping Use: Never Used service: No Current occupational status: employed 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 Kamaljit Hood, Danielle Aaron, Fritz Lind and colleagues, with an educational keo from [employer]. Physical exam (Primary Care) Vital Signs: Last Vital Signs Temp 96.9 F 07/01/25 08:09 Pulse 76 07/01/25 08:09 BP 140/78 H 07/01/25 08:09 Pulse Ox 98 07/01/25 08:09 Oxygen Delivery Method Room Air 07/01/25 08:09 BMI result Body Mass Index 31.3 Tobacco/Smoking Status: Tobacco use Status Tobacco use date assessed 03/26/25 07/01/25 08:03 Patient Tobacco Use Status Never used Tobacco 07/01/25 08:03 e-Cigarette/Vaping Use Never Used 07/01/25 08:03 Thrive Assessment: Date of Thrive Assessment Date Thrive assessed 03/10/25 07/01/25 08:03 Coding Level of Care Code Est Pt Level 4 (12857) Complex EM visit Add On G2211 Diagnoses Spasm of thoracic back muscle M62.830 SI (sacroiliac) joint dysfunction M53.3 Chronic low back pain M54.50; G89.29 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 Ibuprofen Robaxin as needed. Continue with home exercises. Is improving. Will extend P FML, follow-up 07/15 the patient is now laid off (2) SI (sacroiliac) joint dysfunction: Code(s): M53.3 - Sacrococcygeal disorders, not elsewhere classified Category: Medical Plan: XR of the lumbosacral spine ordered. Continue with PT (3) Chronic low back pain: Code(s): M54.50 - Low back pain, unspecified; G89.29 - Other chronic pain Category: Medical Plan: As above. Suspect component of scoliosis impacting pain as well. 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 Continue current therapies. Will recheck at follow-up visit (6) Hypercholesteremia: Code(s): E78.00 - Pure hypercholesterolemia, unspecified Category: Medical Plan: At goal. Continue atorvastatin 20 mg daily Plan Follow-up as scheduled, labs as below Orders: Orders Basic Metabolic Panel 4 Months E78.00 - Pure hypercholesterolemia, unspecified, I10 - Essential (primary) hypertension Lipid Panel 4 Months E78.00 - Pure hypercholesterolemia, unspecified, I10 - Essential (primary) hypertension XR lumbar spine 2-3V Today G89.29 - Other chronic pain, M53.3 - Sacrococcygeal disorders, not elsewhere classified, M54.50 - Low back pain, unspecified Liver Panel 4 Months E78.00 - Pure hypercholesterolemia, unspecified, I10 - Essential (primary) hypertension Referrals Orthopedics Referral E78.00 - Pure hypercholesterolemia, unspecified, I10 - Essential (primary) hypertension, M11.249 - Other chondrocalcinosis, unspecified hand
--- OUTSIDE RECORDS SUMMARY | 2025-07-01 08:04 | XMS_ITS | Patient Health Record ---
Author Organization [facility] Address [address] [place] [address] Care Team Providers Care Electrocardiogram Technician Name Role Phone Cele (RETIRED) Roger [...] Problem Status W/U Status Risk Notes Problem 5022119 Diverticulitis o f large intestine without perforation or abscess without bleeding (K57.32) Active confirmed Problem Diverticulitis (95561451) Diverticulitis (K57.92) Active confirmed Plan Of Treatment Future Test Test Name Order Date COLONOSCOPY 07/07/2013 COLONOSCOPY 01/11/2022 Insurance Providers Payer Name Payer Address Payer Phone Subscriber Number Group Number Insured Name Patient Relationship to Insured Coverage Start Date Coverage End Date [facility] [address] [place] [address] [id number] LAYO VERAS Self - patient is the insured Medical (General) History Medical History History ICD Code Hypertension diverticulitis Hyperlipidemia Colonoscopy 11/14, hyperplast ic polyps, diverticulosis, internal hemorrhoids, ten-year followup Depression Surgical History Surgery Date(Month/Year) hernia repair elbow surgery-left Hospitalization History Reason Date(Month/Year) [place] [place]
--- OUTSIDE RECORDS SUMMARY | 2025-07-01 08:04 | XMS_ITS | Patient Health Record ---
Author Organization [facility] Address [address] [facility] [place] [address] Care Team Providers Care Community Service Patrol Officer Name Role Phone Macario Boateng Unavailable [phone] Reason For Referral No Information Problems Problem Type SNOMED Code ICD Code Onset Dates Problem Status W/U Status Risk Notes Problem Pain of left knee joint (finding) (699967303203 107) Pain in left knee (M25.562) Active confirmed Alexandr Problem Low back pain (091465286) Low back pain (M54.5) Active confirmed Alexandr Plan Of Treatment No Information
--- OUTSIDE RECORDS SUMMARY | 2025-07-01 08:05 | XMS_ITS | Clinical Summary ---
Author Organization [facility] Address [facility] [employer] [facility] [address] [place] [address] Phone Care Team Providers Care Physician Office Assistant Name Role Phone Roger Oakley MD Primary [...] topic Medical Devices Not on file Insurance [facility] [place] [address] [place] [address] [place] [address] [place] [address] [place] [address] [place] [address] [place] [address] [place] [address] [place] [address] [place] [address] PPO PPO PPO PPO Care Teams Physician Office Assistant Relationship Specialty Start Date End Date Roger Oakley MD [address] [place] [address] Dr Zacarias, JOVANA [address] PCP - General 07/19/17 Additional Source Comments The information contained in this document represents components of the legal health record. It is not the complete legal health record.[facility]
[2025-07-01 08:09] VITALS: BP 140/78; PULSE 76; TEMP 36.1; O2SAT 98; BMI 31.3
== END 2025-07-01 08:27 | disposition home or self-care (01) ==
LOC: HO.HMCHD 08:00
PROVIDERS: PCP Internal Medicine; Visit Provider Physician Assistant
DX: M62.830 Muscle spasm of back (principal); M53.3 Sacrococcygeal disorders, not elsewhere classified; M54.50 Low back pain, unspecified; G89.29 Other chronic pain; M11.249 Other chondrocalcinosis, unspecified hand; I10 Essential (primary) hypertension; E78.00 Pure hypercholesterolemia, unspecified

== ENCOUNTER 2025-07-09 | Outpatient (REF) | payer BC, SELFPAY ==
--- NOTE | ~2025-07-09 | XR_ITS ---
EXAMINATION: XR LUMBOSACRAL SPINE CLINICAL INFORMATION: M53.3 - Sacrococcygeal disorders, not elsewhere classified COMPARISON: 06/27/2021 TECHNIQUE: Three views of the lumbosacral spine. FINDINGS: Moderate stool and gas is present in bowel. There are 5 non-rib bearing lumbar segments. Vertebral body height and alignment is preserved. T12-L1: There is mild disc space narrowing and bridging anterior osteophyte, increased in size. L1-L2: There is minimal disc space narrowing L2-L3: There is minimal disc space narrowing L3-L4: There is minimal disc space narrowing and increasing endplate osteophytes L4-L5: There is mild disc space narrowing with increasing osteophytes. L5-S1: There is mild disc space narrowing with endplate sclerosis and osteophytes, slightly increased. XR/XR lumbar spine 2-3V IMPRESSION: Multilevel degenerative changes, increased since the prior. Electronically signed by: Genaro Sánchez MD 07/09/2025 04:43 PM EDT
--- OUTSIDE RECORDS SUMMARY | 2025-07-20 05:30 | XMS_ITS ---
Author Organization [facility] Address [address] [place] [address] Care Team Providers Care Machine Crater Name Role Phone Carla Rebecca Primary Care Provider Rebecca Hansen Unavailable [phone] Allergies No Known Allergies Medications Medication SIG [...] Negative Encounters Encounter Location Date Provider Diagnosis [facility] [address] [place] [address] 07/20/2025 Rebecca White Plan Of Treatment No Information Progress Notes * Luis AUGUSTE PDOB:[birth year] (64 yo M)Acc No.[id number]:07/20/2025 Progress Notes Patient: Luis HENSON Provider: Antonette White DPM :1960 A ge:64 Y S ex:Male Date:07/20/2025 Address:[address] [place], [place] [id number] Pcp:Rebecca Aguirre Subjective: * Chief Complaints: * [...] enies. C ardiovascular: Pacemaker d enies. M GUEST SERVICES AMBASSADOR d enies. W PW d enies. C [...] DPM Date: Generated for Jessie quinn/Raul/Mela on: 08:09 AM EDT
--- OUTSIDE RECORDS SUMMARY | 2025-07-21 08:09 | XMS_ITS | Patient Health Record ---
Author Organization [facility] Address [address] [place] [address] Care Team Providers Care Instrument Worker Name Role Phone Cele (RETIRED) Roger MARIE Primary Care Provide Sumit Varner Jr Unavailable [phone] Allergies Allergen (clinical drug ingredient) Drug/Non Drug Allergy documented on EMR Reaction Allergy Type Onset Date Status seasonal (uncoded) Unknown Allergy A ctive Reason For Referral No Information Medications Medication SIG (Take, Route, Frequency, Duration) Notes Start Date End Date Status MiraLax (colon prep) 17 GM/SCOOP mixed with Gatorade or Crystal Light Orally begin at 5:00 p.m. the day before the procedure; Duration: 1 day 01/11/2022 Active Gemfibrozil 600mg Ac tive Losartan Potassium 25 MG TAKE 1 TABLET B Y MOUTH ONCE DAILY Oral; Duration: 90 Active Aspir-81 Active Lexapro 20mg Active Lipitor 40mg Active Immunizations Vaccine Route Administration Date Status Comme nts Influenza Unknown 08/24/2021 Administered Problems Problem Type SNOMED Code ICD Code Onset Dates Problem Status W/U Status Risk Notes Problem Diverticulitis of colon (251094692) Diverticulitis of large intestine without perforation or abscess without bleeding (K57.32) Active confirmed Problem Diverticulitis (06523599) Diverticulitis (K57.92) Active confirmed Plan Of Treatment Future Test Test Name Order Date COLONOSCOPY 07/07/2013 COLONOSCOPY 01/11/2022 Insurance Providers Payer Name Payer Address Payer Phone Subscriber Number Group Number Insured Name Patient Relationship to Insured Coverage Start Date Coverage End Date [facility] [address] [place] [phone] [id number] LAYO VERAS Self - patient is the insured Medical (General) History Medical History History ICD Code Hypertension diverticulitis Hyperlipidemia Colonoscopy 11/14, hyperplast ic polyps, diverticulosis, internal hemorrhoids, ten-year followup Depression Surgical History Surgery Date(Month/Year) hernia repair elbow surgery-left Hospitalization History Reason Date(Month/Year) diverticulitis-[facility] 2021
--- OUTSIDE RECORDS SUMMARY | 2025-07-21 08:09 | XMS_ITS | Patient Health Record ---
Author Organization [facility] Address [address] [place] [address] Care Team Providers Care Director Of Graduate Admissions Name Role Phone Macario Boateng Unavailable [phone] Reason For Referral No Information Problems Problem Type SNOMED Code ICD Code Onset Dates Problem Status W/U Status Risk Notes Problem Pain of left knee joint (finding) (214205004837 107) Pain in left knee (M25.562) Active confirmed Alexandr Problem Low back pain (634809855) Low back pain (M54.5) Active confirmed Alexandr Plan Of Treatment No Information
--- OUTSIDE RECORDS SUMMARY | 2025-07-21 08:09 | XMS_ITS | Patient Health Record ---
Author Organization [facility] Address [address] [place] [address] Care Team Providers Care Mental Health Case Manager Name Role Phone Rebecca Aguirre Primary Care Provider Rebecca Hansen Unavailable [phone] Allergies No Known Allergies Reason For Referral No Information Medications Medication SIG (Take, Route, Fr equency, Duration) Notes Start Date End Date Status Adderall Active Aspirin Active Lexapro 20 MG 1 tablet Orally Once a day Active Lipitor Active Losartan Potassium A ctive Immunizations Vaccine Route Administration Date Status Comme nts Influenza Unknown 07/02/2025 Administered Social History Tobacco Use: Social History Observation [...] Negative Encounters Encounter Location Date Provider Diagnosis [facility] [address] [place] [address] 07/20/2025 Rebecca White Plan Of Treatment No Information Insurance Providers Payer Name Payer Address Payer Phone Subscriber Number Group Number Insured Name Patient Relationship to Insured Coverage Start Date Coverage End Date [facility] [address] [place] [address] [phone] [id number] Luis Auguste Self - patient is the insured Medical (General) History Medical History History ICD Code Back,Hip,and Knee pain CAD (Cholesterol) Depression Diverticulosis Gout Surgical History Surgery Date(Month/Year) elbow sx, left hernia
--- OUTSIDE RECORDS SUMMARY | 2025-07-21 08:10 | XMS_ITS | Clinical Summary ---
Author Organization [facility] Address [facility] [employer] [facility] [address] [place] [address] Phone Care Team Providers Care Leaflet Or Newspaper Deliverer Name Role Phone Roger Oakley MD Primary [...] Devices Not on file Insurance [facility] [place] [address] [place] [address] [place] [address] [place] [address] [place] [address] [place] [address] [place] [address] [place] [address] [place] [place] [address] PPO PPO PPO PPO Care Teams Leaflet Or Newspaper Deliverer Relationship Specialty Start Date End Date Roger Oakley MD [address] [place] [address] Dr Zacarias, [place] [address] PCP - General 07/19/17 Additional Source Comments The information contained in this document represents components of the legal health record. It is not the complete legal health record.[facility]
== END 2025-07-09 00:01 | disposition home or self-care (01) ==
LOC: HO.XRAY
PROVIDERS: Visit Provider Physician Assistant
DX: M53.3 Sacrococcygeal disorders, not elsewhere classified (principal)
CPT/HCPCS: 72100

== ENCOUNTER 2025-07-09 13:56 | Outpatient (AMB) | payer BC, SELFPAY ==
--- NOTE | 2025-07-09 13:58 | A.OFFVIS_ITS ---
Vital Signs 07/09/25 13:59 Height 6 ft Weight 235 lb 14.314 oz BMI 32.0 BP 128/76 Blood Pressure Location Rt brachial Position Sitting Pulse 73 Pulse Source Pulse Oximeter Pulse Oximetry (%) 100 Oxygen Delivery Method Room Air Intake Visit Reasons: obstructive Sleep Apnea Allergies acetaminophen (From Percocet) Allergy (Verified 07/09/25 16:40) Nightmare oxycodone Adverse Reaction (Mild, Verified 07/09/25 16:40) Nausea and Vomiting Medication List - Last Reconciled 07/09/25 by Pj Cueva MD Adderall XR 20 mg (dextroamphetamine-amphetamine) 20 mg PO DAILY NS aspirin 81 mg PO DAILY atorvastatin (Lipitor) 20 mg PO DAILY fluorouracil 5% 1 appl topical BID Lexapro (escitalopram oxalate) 20 mg PO DAILY NS losartan 1 tab PO DAILY omega-3 fatty acids 1,000 mg PO DAILY Do you need a note to return to daycare/school/sports/work: No HPI HPI obstructive Sleep Apnea: Details: THIS 64 YEARS OLD GENTLEMAN IS HERE TO DISCUSS ABOUT THE MANAGEMENT OF HIS SLEEP APNEA. HE WAS DIAGNOSED TO HAVE OBSTRUCTIVE SLEEP APNEA IN DECEMBER 2023 WITH HOME-BASED S LEEP STUDY. PRIOR TO THAT HE HAD COMPLAINED OF POOR SLEEP , FREQUENT AWAKENINGS AND EXCESSIVE DAYTIME SLEEPINESS WELL LACK OF CONCENTRATION. HIS SLEEP STUDY DID CONFIRM PRESENCE OF SEVERE OBSTRUCTIVE SLEEP APNEA IN ALL POSITIONS. HE WAS STARTED ON A CPAP WITH AUTO PAP MODE AND A NASAL MASK. ( PRESCRIBED BY DR. ANDI GRAYSON ) HE HAS BEEN USING THE CPAP REGULARLY. HOWEVER LATELY HE IS HAVING SOME DISCOMFORT OVER HIS NOSE. HE WAS ENQUIRING ABOUT THE USE OF INSPIRE THERAPY AND HAS BEEN REFERRED TO ME TO DISCUSS ABOUT THAT. A BACKGROUND THIS GENTLEMAN HAS BEEN MODERATELY OBESE, WITH HISTORY OF DAYTIME SLEEPINESS AND FREQUENT AWAKENINGS AT NIGHT. 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 THEN HE STARTED WORKING WITH [employer], WHERE HE WAS REQUIRED TO DO SOME LIFTING WHILE IN SITTING POSITION. HE DEVELOPED STRAIN ON HIS UPPER BACK . THAT WAS TREATED WITH PHYSICAL THERAPY. THEN HE HAS DEVELOPED LOW BACK PAIN , PROBABLY DUE TO SACROILIAC JOINT STRAIN. HE WAS ALSO HAVING SOME PROBLEM WITH THE ATTENTION DEFICIT, AND EARLY PART OF THIS YEAR HE WAS STARTED ON ADDERALL 20 MG DAILY. HE CLAIMS THAT IT MADE IT DIFFERENCE OF DAY AND NIGHT AND HE HAS BEEN VERY ALERT DURING THE DAYTIME. HE HAS BEEN COMPLIANT IN USING THE CPAP. HE DOES NOT DESCRIBE ANY PARTICULAR DIFFICULTY OR ISSUE BUT FEELS SOMEWHAT UNCOMFORTABLE. HIS BROTHER WHO ALSO HAS OBSTRUCTIVE SLEEP APNEA HAS READ ABOUT INSPIRE, OR SEEN THE ADDS, AND IS LOOKING INTO THE INSPIRE THERAPY. HE IS A VERY PLEASANT GENTLEMAN AND TOLD BE MANY STORIES ABOUT HIS AMIE BACKGROUND. [facility] Medical History (Updated 07/09/25 @ 16:58 by Pj Cueva MD) Obesity (BMI 30-39.9) Chronic low back pain SI (sacroiliac) joint dysfunction TRESSA (obstructive sleep apnea) Rotator cuff arthropathy of right shoulder Depression Diverticulitis Hypercholesteremia Depression Hypertension Surgical History (Updated 04/13/25 @ 15:39 by Kaela Graham) H/O colonoscopy (~02/10/22) History of right inguinal hernia repair History of elbow surgery Family History Father Bladder cancer Myocardial infarct Paternal Grandmother Myocardial infarct Social History Housing: House Alcohol intake: never Patient Tobacco Use Status: Never used Tobacco e-Cigarette/Vaping Use: Never Used service: No Current occupational status: employed 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 Cognitive needs: No Hearing needs: No Vision needs: Yes (reading glasses) Review of Systems Const All systems reviewed & are unremarkable except as noted in HPI and below Eyes Reports no additional complaints ENT Reports no additional complaints Card Denies chest pain, Denies irregular heart rhythm and Denies leg edema Resp Reports as per HPI GI Denies no additional complaints Reports no additional complaints Musc Reports back pain Skin/Breast Reports system reviewed and no additional complaints, except as documented Neuro Reports no additional complaints Psych Reports depression and Reports other (ADHD, TREATED WITH ADDERALL) Endo Reports no additional complaints Evelio/Lymph Reports no additional complaints Physical Exam Vital Signs: Last Vital Signs Pulse 73 07/09/25 13:59 BP 128/76 07/09/25 13:59 Pulse Ox 100 07/09/25 13:59 Oxygen Delivery Method Room Air 07/09/25 13:59 BMI result Body Mass Index 32.0 Const Other: HE DOES HAVE A ROUND HAD AN FACE , WITH NARROW OROPHARYNX MALLAMPATI CLASS 3 General: healthy appearing (EXCEPT FOR BEING MODERATELY OBESE), comfortable, no acute distress, alert and awake Orientation/consciousness: patient oriented x3 HEENT Head: Yes normal to inspection General nose exam: No nasal polyps present and No nasal discharge present Face and sinus: Yes sinuses nontender Mouth: oropharynx normal Throat: Yes posterior oropharynx normal Eyes General: appearance normal, both eyes and all related structures Neck Neck: Yes normal visual inspection, Yes no lymphadenopathy, Yes trachea midline and Yes no JVD Thyroid: Thyroid normal Chest Chest palpation & inspection: normal inspection of the chest, normal palpation of entire chest wall and no tenderness Resp Effort & Inspection: normal respiratory effort Auscultation: clear to auscultation bilaterally, no crackles and no wheezes Cardio Palpation: normal PMI Rate: regular rate Rhythm: regular rhythm Heart sounds: no gallops and no murmurs Peripheral pulses: Peripheral pulses 2+ throughout GI Palpation (GI): Soft to palpation, nontender, No hepatosplenomegaly present and no masses Auscultation: normal bowel sounds Back/Spine/Pelvis Thoracic/Lumbar Spine: thoracic and lumbar spine normal to inspection and thoraco-lumbar ROM limited Skin General skin exam: no rashes or lesions noted Neuro General: patient oriented x3 and no focal motor deficits Cranial nerves: Yes CN's II-XII intact bilaterally Extrem General: Yes normal to inspection, Yes no clubbing, cyanosis or edema and Yes no calf tenderness Psych Appearance: grossly normal and well kempt Speech and movement: Normal speech and movement present Results Reviewed Results Reviewed: NOT AVAILABLE Assessment & Plan Assessment & Plan (1) Obesity (BMI 30-39.9): Comment: HE IS MODERATELY OBESE CURRENT BMI 32 Code(s): E66.9 - Obesity, unspecified Category: Medical Plan: I DISCUSSED WITH HIM ABOUT THE WEIGHT ISSUE, ADVISE TO SEE IF HE CAN LOSE ABOUT 5-10 LB OF WEIGHT (2) TRESSA (obstructive sleep apnea): Comment: PATIENT IS KNOWN TO HAVE OBSTRUCTIVE SLEEP APNEA SINCE 2020. HIS SLEEP STUDY SHOWED TOTAL SLEEP TIME AHI 28 AND SUPINE POSITION AHI 33 RIGHT LATERAL POSITION AHI 18 HE HAS BEEN ON CPAP THERAPY WITH THE NASAL MASK, WHICH HE HAS BEEN USING REGULARLY WE DO NOT HAVE THE COMPLIANCE REPORT. WILL CONTACT HIS DME PROVIDER AND SEE IF WE CAN GET THE PRINT OF HIS COMPLIANCE. HE WANTS TO DISCUSS ABOUT POSSIBILITY OF INSPIRE THERAPY, ABOUT WHICH HE DOES NOT KNOW MUCH BUT HEARS A LOT IN ADVERTISEMENT. Code(s): G47.33 - Obstructive sleep apnea (adult) (pediatric) Category: Medical Plan: I DESCRIBED HIM ABOUT THE INSPIRE THERAPY, THAT THIS IS A SURGICAL PROCEDURE. HE HAS TO MEET CERTAIN CRITERIA. HE HAS TO HAVE APPROVAL FROM HIS INSURANCE. HE WOULD NEED A REFERRAL TO LOCAL ENT SPECIALIST WHO DO THIS PROCEDURE. AFTER GOING OVER ALL THIS INFORMATION, HE SAID THAT HE WOULD RATHER CONTINUE TO USE THE CPAP. I DISCUSSED ABOUT THE PROPER CPAP USE IT. AND ABOUT MONITORING HIS COMPLIANCE. ALSO ABOUT THE NEED TO LOSE SOME WEIGHT. HE SAY IS HE IS GOING TO STAY WITH CPAP THERAPY AND HE WILL NOW LIKE TO COME TO OUR OFFICE FOR FOLLOW-UP. (3) Depression: Comment: DURING OUR DISCUSSION IT BECAME APPARENT THAT HE HAS HAD CLINICAL DEPRESSION. HE ALSO HAS HAD SYMPTOMS OF ADHD. AND WHILE AT WORK HE WAS LOSING HIS ATTENTION. 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 Coding Level of Care Code New Pt Level 3 (46650) Diagnoses Obesity (BMI 30-39.9) E66.9 TRESSA (obstructive sleep apnea) G47.33 Major depressive disorder in partial remission, unspecified whether recurrent F32.4 Depression Type: major depressive disorder Major depression recurrence: unspecified whether recurrent Active/Remission status: in partial remission
[2025-07-09 13:59] VITALS: BP 128/76; PULSE 73; O2SAT 100; BMI 32.0
== END 2025-07-09 14:37 | disposition home or self-care (01) ==
LOC: HO.HPS 13:57
PROVIDERS: PCP Internal Medicine; Visit Provider Internal Medicine
DX: G47.33 Obstructive sleep apnea (adult) (pediatric) (principal); E66.9 Obesity, unspecified; F32.4 Major depressive disorder, single episode, in partial remission
CPT/HCPCS: 99203

== ENCOUNTER 2025-07-09 15:00 | Outpatient (RCR) | payer BC, SELFPAY ==
--- NOTE | 2025-06-18 10:37 | MHC.PT.EP ---
[facility] [place] Office [place] Office [place] Office [address] Shawna Freeman 140 [facility] [phone] F: [phone] F: [phone] F: [phone] F: [phone] Physical Therapy Plan of Care Date of Evaluation: 06/17/25 Date of Surgery: Diagnosis: LOW BACK PAIN (KP) Assessment: LAYO IS A 64 YO MALE WHO PRESENTS REPORTING HE WAS AT WORK AND MOVED TO A DIFFERENT WORK STATION THAN NORMAL. AT THE STATION HE WAS IN A FORWARD FLEXED POSITION MOVING BARRELS. DUE TO THE WORK STATION SET UP HE WAS UNABLE TO GET CLOSE TO BARRELS AND INSTEAD WAS IN AN OUTWARD REACHING POSITION MOVING ITEMS FROM SIDE TO SIDE. HE STATES HE FELT A TWINGE AND SOME FATIGUE BUT CONT TO PERFORM TASK. AFTER ABOUT AN HOUR PAIN BECAME MORE CONSISTENT AND BY END OF SHIFT HE HAD SIGNIFICANT DISCOMFORT. NEXT SHIFT HE TOOK NSIAD MEDICATION BUT UPON RETURN TO WORK PAIN RETURNED AND HE THEN USED 2 SICK DAYS. HE DID TRIAL AN OTC BACK BRACE BUT THIS DID NOT IMPROVE SYMPTOMS. HE REPORTS PAIN HAS IMPROVED ONLY SLIGHTLY SINCE OOW BUT DOES HAVE DIFFICULTY WITH LIFTING BEND AND REACHING. HE DENIES ALTERED SENSATION, DENIES RADICULAR SYMPTOMS. UPON EXAM IMPAIRMENTS INCLUDE DECREASED TRUNK ROM AND CORE STRENGTH, DECREASED LE STRENGTH AND ROM, ALTERED GAIT PATTERN, ALTERED SOFT TISSUE MOBILITY AND INCREASED PAIN. FUNCTIONAL LIMITATIONS INCLUDE DECREASED TOLERANCE TO STATIC STANDING, WALKING AND SITTING. HE REPORTS DECREASED TOLERANCE TO LIFTING, PUSHING, PULLING AND REACHING. HE REPORTS DECREASED ABILITY TO PERFORM RECREATIONAL AND WORK TASKS. HE REPORTS DISRUPTED SLEEP Frequency and Duration: The patient will be seen 2 X WEEK FOR 4 WEEKS Short Term Goals: INITIATE HEP AND PROMOTE SELF MANAGEMENT OF SYMPTOMS Shaker Plate Operator Goals: BACK Patient will perform functional activities (e.g., walking, stair climbing, lifting =20 lbs) independently without pain or compensatory movement Patient will complete a full lumbar range of motion without pain or substitution. Patient will improve trunk and core strength to 4+/5 as measured by manual muscle testing to support spine during ADLs. Patient will maintain pain =2/10 during work and recreational tasks for one week. Patient will return to pre-injury occupational and recreational activities without pain flare-up Treatment Plan: Modalities to reduce pain, spasms and effusion. Manual therapy to restore motion and function. Therapeutic exercise to improve strength and flexibility. Neuromuscular re-education for posture and balance. Therapeutic activities to return to functional activities of daily living. Electronically signed by: TIANA GÓMEZ PT DPT Please sign and return to therapist. Thank you for your referral.
== END 2025-08-06 10:04 | disposition home or self-care (01) ==
LOC: HO.PT 15:00
PROVIDERS: PCP Internal Medicine; Visit Provider Physician Assistant
DX: M62.830 Muscle spasm of back (principal)
CPT/HCPCS: 97110; 97162; 97530; 97535

== ENCOUNTER → 2025-07-09 16:15 | Outpatient (BNV) | payer BC, SELFPAY | PROVIDERS: PCP Internal Medicine; Visit Provider Radiology Diagnostic Radiology | DX: M51.369 Other intervertebral disc degeneration, lumbar region without mention of lumbar back pain or lower extremity pain (principal) | CPT/HCPCS: 72100 ==

== ENCOUNTER 2025-08-19 13:51 | Outpatient (AMB) | payer BC, SELFPAY ==
--- OUTSIDE RECORDS SUMMARY | 2025-07-20 04:30 | XMS_ITS ---
Author Organization [facility] Address [address] [place] [address] Care Team Providers Care Environmental Research Project Manager Name Role Phone Carla Rebecca Primary Care Provider Rebceca Hansen Unavailable [phone] Allergies No Known Allergies Medications Medication SIG [...] Negative Encounters Encounter Location Date Provider Diagnosis [facility] [address] [place] [address] 07/20/2025 Rebecca White Plan Of Treatment No Information Progress Notes * Luis AUGUSTE PDOB:[birth year] (64 yo M)Acc No.[id number]:07/20/2025 Progress Notes Patient: Luis HENSON Provider: Antonette White DPM :1960 A ge:64 Y S ex:Male Date:07/20/2025 Address:[address] [place], [place] [id number] Pcp:Rebceca Aguirre Subjective: * Chief Complaints: * * [...] enies. C ardiovascular: Pacemaker d enies. M CUSTOMER SUPPLY COORDINATOR d enies. W PW d enies. C [...] DPM Date: Generated for Jessie quinn/Raul/Mela on: 10/20/2024 01:57 AM EST
--- NOTE | 2025-08-19 13:31 | MHC.PC.OV ---
Vital Signs 08/19/25 13:54 08/21/25 17:16 Height 6 ft 1.23 in Weight 106.141 kg BMI 30.7 BP 144/82 H 132/80 Blood Pressure Location Lt brachial Position Sitting Respiration 18 Pulse 75 Pulse Source Pulse Oximeter Temp 97.1 F Temp Source Temporal Artery Scan Pulse Oximetry (%) 92 Oxygen Delivery Method Room Air Intake Visit Reasons: Mental Health Issues Supervisor Photoengraving Required: No Accompanied by: Self / Same As Patient Allergies acetaminophen (From Percocet) Allergy (Verified 08/19/25 13:31) Nightmare oxycodone Adverse Reaction (Mild, Verified 08/19/25 13:31) Nausea and Vomiting Medication List - Last Reconciled 08/19/25 by MATHIEU Gaines Adderall XR 20 mg (dextroamphetamine-amphetamine) 20 mg PO DAILY NS aspirin 81 mg PO DAILY atorvastatin (Lipitor) 20 mg PO DAILY fluorouracil 5% 1 appl topical BID hydroxyzine HCl 25 mg PO TID PRN Lexapro (escitalopram oxalate) 20 mg PO DAILY NS losartan 1 tab PO DAILY omega-3 fatty acids 1,000 mg PO DAILY Tobacco use date assessed: 03/26/25 Dental Screening Dental Screen Date: 12/19/24 HPI HPI Comments History of Present Illness Details 64-year-old male presents to the office today for follow up. Thoracic back strain-had been following with physical therapy with good improvement following an injury to the thoracic back while at work. He is not on workman's comp but rather is on PFML. He is currently laid off. Looking for a new referral to physical therapy Scalp dermatitis- following with dialer who prescribed fluorouracil to use of the scalp. Due to the number of lesions, unable to freeze each of these off ADHD/depression- has been on Adderall as well as Lexapro with good management of his symptoms. Reports given most recently off which has left him without P, he has been feeling worthless as he has been unable to help his who has breast cancer and following in [place]. He reports that his truck also broke down. Reports he falls asleep crying and feels as if he got hit by a train. Feels like he is having ?nervous breakdown?. Does deny any SI. Hypertension-blood pressure slightly elevated 140/78. Compliant with losartan Hyperlipidemia-on atorvastatin 20 mg daily. Last LDL 62, at goal ROS: see hpi EXAM: Constitutional - Awake and Alert, No apparent distress Eyes - PERRL Cardiovascular - S1S2, RRR, No edema Respiratory - Normal lung expansion, Normal respiratory effort, No respiratory distress, CTA bilaterally Extremities - no calf tenderness bilaterally, no swelling Skin - Warm/Dry Neurological - Alert & oriented x Psychological - tearful [facility] Medical History (Updated 08/21/25 @ 17:17 by MATHIEU Gaines) Obesity (BMI 30-39.9) Chronic low back pain SI (sacroiliac) joint dysfunction TRESSA (obstructive sleep apnea) Rotator cuff arthropathy of right shoulder Depression Diverticulitis Hypercholesteremia Depression Hypertension Surgical History (Updated 04/13/25 @ 15:39 by Kaela Graham) H/O colonoscopy (~02/10/22) History of right inguinal hernia repair History of elbow surgery Family History Father Bladder cancer Myocardial infarct Paternal Grandmother Myocardial infarct Social History Housing: House Alcohol intake: never Patient Tobacco Use Status: Never used Tobacco e-Cigarette/Vaping Use: Never Used service: No Current occupational status: employed 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 Kamaljit Hood, Danielle Aaron, Fritz Lind and colleagues, with an educational keo from [employer]. Physical exam (Primary Care) Vital Signs: Last Vital Signs Temp 97.1 F 08/19/25 13:54 Pulse 75 08/19/25 13:54 Resp 18 08/19/25 13:54 BP 144/82 H 08/19/25 13:54 Pulse Ox 92 08/19/25 13:54 Oxygen Delivery Method Room Air 08/19/25 13:54 BMI result Body Mass Index 30.7 Tobacco/Smoking Status: Tobacco use Status Tobacco use date assessed 03/26/25 08/19/25 13:32 Patient Tobacco Use Status Never used Tobacco 08/19/25 13:32 e-Cigarette/Vaping Use Never Used 08/19/25 13:32 Thrive Assessment: Date of Thrive Assessment Date Thrive assessed 03/10/25 08/19/25 13:32 Coding Level of Care Code Est Pt Level 4 (23935) Diagnoses Major depressive disorder in partial remission, unspecified whether recurrent F32.4 Depression Type: major depressive disorder Major depression recurrence: unspecified whether recurrent Active/Remission status: in partial remission Primary hypertension I10 Hypertension type: primary hypertension Obesity (BMI 30-39.9) E66.9 Spasm of thoracic back muscle M62.830 Assessment & Plan Assessment & Plan (1) Depression: Code(s): F32.9 - Major depressive disorder, single episode, unspecified Category: Medical Qualifiers: Depression Type: major depressive disorder Major depression recurrence: unspecified whether recurrent Active/Remission status: in partial remission Qualified Code(s): F32.4 - Major depressive disorder, single episode, in partial remission Plan: Discussed the importance of healthy coping mechanisms. Recommend reaching out to a counselor. For now, continue Lexapro and Adderall as prescribed as he does feel like these have been effective. He can also use hydroxyzine 3 times daily as needed (2) Hypertension: Code(s): I10 - Essential (primary) hypertension Category: Medical Qualifiers: Hypertension type: primary hypertension Qualified Code(s): I10 - Essential (primary) hypertension Plan: Controlled. Continue losartan (3) Obesity (BMI 30-39.9): Comment: HE IS MODERATELY OBESE CURRENT BMI 32 Code(s): E66.9 - Obesity, unspecified Category: Medical Plan: Recommend regular exercise as this will not only help with weight but also mood. He is referred to physical therapy to help improve functional ability (4) Spasm of thoracic back muscle: Code(s): M62.830 - Muscle spasm of back Category: Medical Plan: Referred back to physical therapy Plan Follow-up in the office in 1 month as scheduled Medications: New hydroxyzine HCl 25 mg PO TID PRN 30 tabs 0RF itching Patient Instructions: Check RECUPYL for therapists
[2025-08-19 13:54] VITALS: BP 144/82; PULSE 75; RESP 18; TEMP 36.2; O2SAT 92; BMI 30.7
--- OUTSIDE RECORDS SUMMARY | 2025-08-20 01:57 | XMS_ITS | Clinical Summary ---
Author Organization [facility] Address [facility] [facility] [address] [place] [address] Phone Care Team Providers Care Service Or Work Dispatcher Chief Name Role Phone Roger Oakley MD Primary [...] on patient's age to complete this topic IPV VACCINES Aged Out No longer eligi ble based on patient's age to complete this topic MENINGOCOCCAL VACCINES (ACWY) Aged Out No longer eligible based on patient's age to complete this topic MENINGOCOCCAL VACCINES (B) Aged Out N o longer eligible based on patient's age to complete this topic Medical Devices Not on file [place] [address] [place] [address] [place] [address] [place] [address] [place] [address] [place] [address] [address] [place] [address] PPO PPO PPO Care Teams Service Or Work Dispatcher Chief Relationship Specialty Start Date End Date Roger Oakley MD [address] [place] [address] [place] [address] PCP - General 07/19/17 Additional Source Comments The information contained in this document represents components of the legal health record. It is not the complete legal health record.[facility]
--- OUTSIDE RECORDS SUMMARY | 2025-08-20 01:57 | XMS_ITS | Patient Health Record ---
Author Organization [facility] Address [address] [place] [address] Care Team Providers Care Pathology Secretary/Transcriptionist Name Role Phone Macario Boateng Unavailable [phone] Reason For Referral No Information Problems Problem Type SNOMED Code ICD Code Onset Dates Problem Status W/U Status Risk Notes Problem Pain of left knee joint (finding) (962928734250 107) Pain in left knee (M25.562) Active confirmed Alexandr Problem Low back pain (239636187) Low back pain (M54.5) Active confirmed Alexandr Plan Of Treatment No Information
--- OUTSIDE RECORDS SUMMARY | 2025-08-20 01:57 | XMS_ITS | Patient Health Record ---
Author Organization [facility] Address [address] [place] [address] Care Team Providers Care Track Service Worker Name Role Phone Cele (RETIRED) Roger MARIE Primary Care Provide Sumit Varner Jr Unavailable [phone] Allergies Allergen (clinical drug ingredient) Drug/Non Drug Allergy documented on EMR Reaction Allergy Type Onset Date Status seasonal (uncoded) Unknown Allergy A ctive Reason For Referral No Information Medications Medication SIG (Take, Route, Frequency, Duration) Notes Start Date End Date Status MiraLax (colon prep) 17 GM/SCOOP Powder mixed with Gatorade or Crystal Light Orally begin at 5:00 p.m. the day before the procedure; Duration: 1 day 01/11/2022 Active Gemfibrozil 600mg Ac tive Losartan Potassium 25 MG Tablet TAKE 1 TABLET BY MOUTH ONCE DAILY Oral; Duration: 90 Active Aspir-81 Active Lexapro 20mg Active Lipitor 40mg Active Immunizations Vaccine Route Administration Date Status Comme nts Influenza Unknown 08/24/2021 Administered Social History Social History Additional Details Category Social Info Options Details Miscellaneous: Marital status: Occupation: retired Problems Problem Type SNOMED Code ICD Code Onset Dates Problem Status W/U Status Risk Notes Problem Diverticulitis of colon (673871878) Diverticulitis of large intestine without perforation or abscess without bleeding (K57.32) Active confirmed Problem Diverticulitis (50117146) Diverticulitis (K57.92) Active confirmed Plan Of Treatment Future Test Test Name Order Date COLONOSCOPY 07/07/2013 COLONOSCOPY 01/11/2022 Insurance Providers Payer Name Payer Address Payer Phone Subscriber Number Group Number Insured Name Patient Relationship to Insured Coverage Start Date Coverage End Date [facility] [employer] [employer] [address] [place] [phone] [id number] LAYO VERAS Self - patient is the insured Medical (General) History Medical History History ICD Code Hypertension diverticulitis Hyperlipidemia Colonoscopy 11/14, hyperplast ic polyps, diverticulosis, internal hemorrhoids, ten-year followup Depression Surgical History Surgery Date(Month/Year) hernia repair elbow surgery-left Hospitalization History Reason Date(Month/Year) diverticulitis-[facility] 2021
--- OUTSIDE RECORDS SUMMARY | 2025-08-20 01:57 | XMS_ITS | Patient Health Record ---
Author Organization [facility] Address [address] [place] [address] Care Team Providers Care Fitting Room Attendant Name Role Phone Rebecca Aguirre Primary Care Provider Rebecca Hansen Unavailable [phone] Allergies No Known Allergies Reason For Referral [...] Negative Encounters Encounter Location Date Provider Diagnosis [facility] [address] [place] [address] 07/20/2025 Rebecca White Plan Of Treatment No Information Insurance Providers Payer Name Payer Address Payer Phone Subscriber Number Group Number Insured Name Patient Relationship to Insured Coverage Start Date Coverage End Date [facility] [address] [place] [address] [id number] Luis Auguste Self - patient is the insured Medical (General) History Medical History History ICD Code Back,Hip,and Knee pain CAD (Cholesterol) Depression Diverticulosis Gout Surgical History Surgery Date(Month/Year) elbow sx, left hernia
[2025-08-21 17:16] VITALS: BP 132/80
== END 2025-08-19 14:22 | disposition home or self-care (01) ==
LOC: HO.HMCHD 13:51
PROVIDERS: PCP Physician Assistant; Visit Provider Physician Assistant
DX: F32.4 Major depressive disorder, single episode, in partial remission (principal); I10 Essential (primary) hypertension; E66.9 Obesity, unspecified; M62.830 Muscle spasm of back

== ENCOUNTER 2025-09-01 09:51 | Outpatient (AMB) | payer BC, SELFPAY ==
[2025-09-01 09:57] VITALS: BMI 31.9
--- NOTE | 2025-09-01 09:57 | A.OFFVIS_ITS ---
Vital Signs 09/01/25 09:57 Height 6 ft Weight 235 lb BMI 31.9 Intake Visit Reasons: New prob- left thumb pain Intake Note: Luis 65 yr old right hand dominant male presents today for a new problem visit for his left thumb pain. States pain started approx in March while working at [employer]. States he dropped a stainless steel barrel on his thumb. He had pain, swelling, soreness and some bruising which had improve very little since. At times he gets a sharp pain on his IP and becomes bothersome. He is limited ROM. Denies numbness or tingling. Hx of left hand dupuytren's contracture, was advise by Dr Ornelas to keep a eye on it- no complains today. Allergies acetaminophen (From Percocet) Allergy (Verified 09/01/25 10:14) Nightmare oxycodone Adverse Reaction (Mild, Verified 09/01/25 10:14) Nausea and Vomiting HPI HPI New prob- left thumb pain : Details: Luis is a 65 year old right hand dominant man who presents with complaints of left thumb pain. This is a workplace injury. 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 He complains of pain in is left thumb since he dropped a rifle barrel blank on it back in 03/2025. He says he developed pain, swelling, bruising, and says this has not particularly improved since his injury. He complains of limited ROM of his thumb. He denies any locking or catching. He denies any numbness or tingling. He says he was let go in May & he is currently working with an independent agent music education on his case. [facility] Medical History (Updated 09/01/25 @ 11:11 by Umesh Gonzalez) Oral herpes Obesity (BMI 30-39.9) Chronic low back pain SI (sacroiliac) joint dysfunction TRESSA (obstructive sleep apnea) Rotator cuff arthropathy of right shoulder Depression Diverticulitis Hypercholesteremia Depression Hypertension Surgical History H/O colonoscopy (~02/10/22) History of right inguinal hernia repair History of elbow surgery Family History Father Bladder cancer Myocardial infarct Paternal Grandmother Myocardial infarct Social History Housing: House Alcohol intake: never Patient Tobacco Use Status: Never used Tobacco e-Cigarette/Vaping Use: Never Used service: No Current occupational status: employed 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 Cognitive needs: No Hearing needs: No Vision needs: Yes (reading glasses) Review of Systems Const All systems reviewed & are unremarkable except as noted in HPI and below Physical Exam Vital Signs: BMI result Body Mass Index 31.9 Const General: no acute distress and alert Orientation/consciousness: patient oriented x3 Neuro General: patient oriented x3 Extrem Other: Evaluation of Left Upper Extremity: The patient is alert, oriented, and in no acute distress Neuro: Median, Ulnar, Radial nerves motor and sensory intact and sensation is no rmal to the tips of all digits Vascular: Cap refill brisk ROM: He is limited in thumb IP joint active flexion to ~60 degrees, secondary to pain & dorsal tightness. Right thumb flexion to 90 degrees He can bring all his other fingers closed to a fist bilaterally, and extend all his digits Left thumb MCP, IP, and basal joint all stable on exam There is a Dupuytrens nodule in the mid-palmar crease, in line with the ring & small fingers. No evidence of cord or contractures at this time Radiographs: 3 views of the left thumb were taken & viewed by me today in clinic. They show No fractures or dislocations. There are mild cystic change in head of the 1st metacarpal, mild narrowing of the CMC joint Psych Appearance: grossly normal Affect: normal affect Attitude: cooperative Assessment & Plan Assessment & Plan (1) Pain of left thumb: Code(s): M79.645 - Pain in left finger(s) Category: Medical (2) Stiffness of finger joint of left hand: Comment: Th Code(s): M25.642 - Stiffness of left hand, not elsewhere classified Category: Medical Plan Assessment & Plan: 1. Left thumb pain & stiffness Secondary to crush injury at work DOI: 03/2025 I educated him about this condition I discussed treatment options, no operative intervention indicated I ordered OT hand therapy to work on stretching, strengthening, and normalizing function I discussed activity modification, he should work on ROM exercises at home and use his hand for normal daily activities Our hope is to get him back to painless and normal range of motion so that he can resume all activities without pain He will follow up in 5-7 weeks for a ROM check, no X-rays 2. Left hand Dupuytrens nodule In the mid-palmar crease, in line with the ring & small fingers No contracture No operative indications at this time If he begins to develop a new cord or contracture he can follow up to discuss treatment options Otherwise he can follow up prn. Please note that greater than 40 minutes was spent with this patient going over the history, evaluating the patient and radiographs, formulating possible treatment options, discussing them with the patient, and documenting the visit. Scribed for Mariela Ornelas MD by Umesh Gonzalez, medical recruiter, on 09/01/25 at 10:30 AM, EST. Orders: Orders XR hand LT min 3V Today M79.642 - Pain in left hand OT Evaluation and Treatment Today M25.642 - Stiffness of left hand, not elsewhere classified, M79.645 - Pain in left finger(s) Coding Level of Care Code Est Pt Level 3 (72328) Diagnoses Pain of left thumb M79.645 Stiffness of finger joint of left hand M25.642
--- OUTSIDE RECORDS SUMMARY | 2025-09-01 10:59 | XMS_ITS | Clinical Summary ---
Author Organization [facility] Address [facility] [employer] [facility] [address] [place] [address] Phone Care Team Providers Care Electron Beam Machine Welder Setter Name Role Phone Roger Oakley MD Primary [...] Medical Devices Not on file Insurance [facility] [place] [address] [place] [address] [place] [address] [place] [address] [place] [address] [place] [address] [place] [address] [place] [address] PPO PPO PPO PPO Care Teams Electron Beam Machine Welder Setter Relationship Specialty Start Date End Date Roger Oakley MD [address] [place] [address] Dr Zacarias, JOVANA [address] PCP - General 07/19/17 Additional Source Comments The information contained in this document represents components of the legal health record. It is not the complete legal health record.[facility]
== END 2025-09-01 11:20 | disposition home or self-care (01) ==
PROVIDERS: PCP Internal Medicine; Visit Provider Orthopaedic Surgery
DX: M79.645 Pain in left finger(s) (principal); M25.642 Stiffness of left hand, not elsewhere classified
CPT/HCPCS: 99213

== ENCOUNTER → 2025-09-01 10:42 | Outpatient (BNV) | payer BC, SELFPAY | PROVIDERS: Visit Provider Radiology Diagnostic Radiology | DX: M79.642 Pain in left hand (principal) | CPT/HCPCS: 73130 ==

== ENCOUNTER 2025-09-02 10:07 | Outpatient (REF) | payer BC, SELFPAY ==
--- OUTSIDE RECORDS SUMMARY | 2025-07-20 04:30 | XMS_ITS ---
Author Organization [facility] Address [address] [place] [address] Care Team Providers Care Door Closer Name Role Phone Rebecca Aguirre Primary Care Provider Rebecca Hansen Unavailable [phone] Allergies No Known Allergies Medications Medication SIG [...] Negative Encounters Encounter Location Date Provider Diagnosis [facility] [address] [place] [address] 07/20/2025 Rebecca White Plan Of Treatment Next Appt Details Provider Name:Rebecca naylor, 11/05/2025 08:30:00 AM, [address] [place], [address], Progress Notes * Luis AUGUSTE PDOB:[birth year] (65 yo M)Acc No.[id number]:07/20/2025 Progress Notes Patient: Luis HENSON Provider: Antonette White DPM :1960 A ge:64 Y S ex:Male Date:07/20/2025 Address:[address] [place], [place] [address] Pcp:Rebecca Aguirre Subjective: * Chief Complaints: * [...] enies. C ardiovascular: Pacemaker d enies. M SACK CLEANING HAND d enies. W PW d enies. C [...] DPM Date: Generated for Jessie quinn/Raul/Mela on: 11/04/2024 12:06 PM EST
--- NOTE | ~2025-09-02 | XR_ITS ---
EXAMINATION: XR HAND, LEFT CLINICAL INFORMATION: M79.642 - Pain in left hand COMPARISON: 06/26/2025 TECHNIQUE: PA, lateral, and oblique views of the left hand. FINDINGS: Again seen is a oval calcification projecting in the radiocarpal compartment. The sigmoid notch of radius that could represent chondrocalcinosis. There is no joint diastases. No fracture line is identified. Nonspecific cystic changes are evident on the radial side of the first metacarpal head. Margins are sclerotic. Appearance is unchanged. XR/XR hand LT min 3V IMPRESSION: Nonspecific cystic-like lucencies in the first metacarpal head have a nonaggressive appearance. Suspected chondrocalcinosis in the triangle fibrocartilage. Electronically signed by: Genaro Sánchez MD 09/01/2025 11:37 AM DEANNA MEYER
--- OUTSIDE RECORDS SUMMARY | 2025-09-03 12:04 | XMS_ITS | Patient Health Record ---
Author Organization [facility] Address [address] [facility] [place] [address] Care Team Providers Care Educational Program Director Name Role Phone Maacrio Boateng Unavailable [phone] Reason For Referral No Information Problems Problem Type SNOMED Code ICD Code Onset Dates Problem Status W/U Status Risk Notes Problem Pain of left knee joint (finding) (091173299118 107) Pain in left knee (M25.562) Active confirmed Alexandr Problem Low back pain (365054737) Low back pain (M54.5) Active confirmed Alexandr Plan Of Treatment No Information
--- OUTSIDE RECORDS SUMMARY | 2025-09-03 12:05 | XMS_ITS | Patient Health Record ---
Author Organization [facility] Address [address] [place] [address] Care Team Providers Care Jde Developer Name Role Phone Rebecca Aguirre Primary Care Provider Rebecca Hansen Unavailable [phone] Allergies No Known Allergies Reason For Referral [...] Negative Encounters Encounter Location Date Provider Diagnosis [facility] [address] [place] [address] 07/20/2025 Rebecca White [facility] [address] [place] [address] 08/26/2025 Rebecca White Plan Of Treatment Next Appt Details Provider Name:Rebecca Sharpe dayday, 11/05/2025 08:30:00 AM, [address] [facility], [place], [address], Insurance Providers Payer Name Payer Address Payer Phone Subscriber Number Group Number Insured Name Patient Relationship to Insured Coverage Start Date Coverage End Date [facility] [address] [place] [address] [id number] Luis Auguste Self - patient is the insured Medical (General) History Medical History History ICD Code Back,Hip,and Knee pain CAD (Cholesterol) Depression Diverticulosis Gout Surgical History Surgery Date(Month/Year) elbow sx, left hernia
--- OUTSIDE RECORDS SUMMARY | 2025-09-03 12:07 | XMS_ITS | Clinical Summary ---
Author Organization [facility] Address [facility] [employer] [facility] [address] [place] [address] Phone Care Team Providers Care Magazine Repairer Name Role Phone Roger Oakley MD Primary [...] topic Medical Devices Not on file Insurance [facility] [place] [address] [place] [address] [place] [address] [place] [address] [place] [place] [address] [place] [address] [place] [address] [place] [address] PPO PPO PPO PPO Care Teams Magazine Repairer Relationship Specialty Start Date End Date Roger Oakley MD [address] [place] [address] Dr Zacarias, JOVANA [address] PCP - General 07/19/17 Additional Source Comments The information contained in this document represents components of the legal health record. It is not the complete legal health record.[facility]
--- OUTSIDE RECORDS SUMMARY | 2025-09-03 12:07 | XMS_ITS | Patient Health Record ---
Author Organization [facility] Address [address] [place] [address] Care Team Providers Care Casting Operator Helper Name Role Phone Cele (RETIRED) Roger MARIE [...] Problem Status W/U Status Risk Notes Problem Information temporarily unavailable Diverticulitis of large intestine without perforation or abscess without bleeding (K57.32) Active confirmed Problem Information temporarily unavailable Diverticulitis (K57.92) Active confirmed Plan Of Treatment Future Test Test Name Order Date COLONOSCOPY 07/07/2013 COLONOSCOPY 01/11/2022 Insurance Providers Payer Name Payer Address Payer Phone Subscriber Number Group Number Insured Name Patient Relationship to Insured Coverage Start Date Coverage End Date [facility] [address] [place] [address] [id number] LAYO VERAS Self - patient is the insured Medical (General) History Medical History History ICD Code Hypertension diverticulitis Hyperlipidemia Colonoscopy 11/14, hyperplast ic polyps, diverticulosis, internal hemorrhoids, ten-year followup Depression Surgical History Surgery Date(Month/Year) hernia repair elbow surgery-left Hospitalization History Reason Date(Month/Year) diverticulitis-[facility] 2021
== END 2025-09-02 10:08 | disposition home or self-care (01) ==
LOC: HO.HOSX 10:07
PROVIDERS: Visit Provider Orthopaedic Surgery
DX: M79.642 Pain in left hand (principal)
CPT/HCPCS: 73130

== ENCOUNTER 2025-09-21 08:42 | Outpatient (AMB) | payer BC, SELFPAY ==
--- OUTSIDE RECORDS SUMMARY | 2025-07-20 04:30 | XMS_ITS ---
Author Organization [facility] Address [address] [place] [address] Care Team Providers Care Printed Circuit Board Pcb Draftsman Name Role Phone Rebecca Aguirre Primary Care Provider Rebecca Hansen Unavailable [phone] Allergies No Known Allergies Medications Medication SIG (Take, Route, Fr equency, Duration) Notes Start Date End Date Status Adderall Active Aspirin Active Lexapro 20 MG 1 tablet Orally Once a day Active Lipitor Active Losartan Potassium A ctive Social History Tobacco Use: Social History Observation Description Date Details (start date - stop date) Never Smoker NA - NA Tobacco use other than smoking: Question Answer Notes Are you an other tobacco user? No Tobacco Control (Standard) Question Answer Notes Tobacco use: Nonsmoker Additional Findings: Tobacco non-user Current no nsmoker AUDIT-C (Standard) Question Answer Notes Did you have a drink contain ing alcohol in the past year? Yes How often did you have a dri nk containing alcohol in the past year? Monthly or less (1 point) How many drinks did you have on a typical day when you were drinking in the past year? 1 or 2 drinks (0 point) How often did you have six o r more drinks on one occasion in the past year? Never (0 point) Points 1 Interpretation Negative Encounters Encounter Location Date Provider Diagnosis [facility] [address] [place] [address] 07/20/2025 Rebecca White Plan Of Treatment Next Appt Details Provider Name:Rebecca naylor, 11/05/2025 08:30:00 AM, [address] [place], [address], Progress Notes * Luis AUGUSTE PDOB:[birth year] (65 yo M)Acc No.[id number]:07/20/2025 Progress Notes Patient: Luis HENSON Provider: Antonette White DPM :1960 A ge:64 Y S ex:Male Date:07/20/2025 Address:[address] [place], [place] [id number] Pcp:Rebecca Aguirre Subjective: * Chief Complaints: * * ROS: G eneral/Constitutional: Nausea d enies. V omiting d enies. H camilo Thirst d enies. L oss appetite d enies. C hills d enies. F atigue d enies.?Fever d enies. N ight Sweats d enies. U nexplained weight loss d enies. U nexplained weight gain d enies. H EENTM: Dentures d enies. D izziness d enies. G lasses/contacts a dmits. R etinopathy d enies. B lurred/double vision d enies. T MJ?denies. D ischarge/drainage d enies. I mplants d enies. S ore throat d enies. D ental implants d enies. H drew of hearing d enies. D ifficulty chewing/swallowing/speaking d enies. N ose bleeds d enies. S ore mouth d enies. ? R espiratory: On Oxygen d enies. P neumonia/pleurisy d enies.?Bronchitis d enies. E mphysema d enies. C oughing d enies. C ough blood?denies. S hortness of breath d enies. W heezing d enies. C ardiovascular: Pacemaker d enies. M CHILDCARE TEACHER d enies. W PW d enies. C HF d enies. H eart attack d enies. S eptal defect d enies. R apid beat d enies. C hest pain d enies. A trial Fib. d enies. M urmur/Palpitations d enies. G astrointestinal: Hemorrhoids d enies. S tomach/Abdominal pain d enies. D ark blood stool d enies. I rritable bowel d enies. C onstipation d enies. D iarrhea d enies. H ematology: Swelling d enies. C lots d enies. V aricose Veins d enies. B ruising d enies. B leeding problem d enies. G enitourinary: Blood urine d enies. F requent/Painfu/urination/bladder control d enies. K idney stones d enies. I nfection (UTI) d enies. N ephropathy d enies. s ex trans dis (STD) d enies. P rostate d enies. M usculoskeletal: Hammertoes d enies. B unions a dmits. B ack Pain a dmits. M uscle Cramps/ Resting a dmits. M uscle cramps / walking a dmits.?Generalized aches and pains d enies. W eakness d enies. I nteg.: [place] d enies. S cars d enies. C orns/calluses?admits. I ngrown nails d enies. P ainful nails d enies. O pen Sores d enies. R ashes d enies. N eurologic: Difficulty sleeping d enies. B rain disorder d enies. N umbness d enies. B alance trouble d enies. C onfusion d enies. F ainting/blackouts d enies. T ingling d enies. T remors d enies. * Medical History: B ack,Hip,and Knee pain, CAD (Cholesterol), Depression, Diverticulosis, Gout. * Surgical History: e lbow sx, left , hernia . * Hospitalization/Major Diagno stic Procedure: D enies Past Hospitalization. * Family History: F ather: Cancer, stroke, heart attack, diagnosed with Unspecified heart disease, Other malignant neoplasm of unspecified site, Diabetic - NIDDM, Unspecified essential hypertension. P aternal Grand Father: diagnosed with Diabetic - NIDDM. M aternal Grand Mother: diagnosed with Diabetic - NIDDM. * Social History: T obacco Use: T obacco use other than smoking A re you an other tobacco user? N o Tobacco Control (Standard) T obacco use: N onsmoker A dditional Findings: Tobacco non-user C urrent nonsmoker D rugs/Alcohol: D rugs H ave you used drugs other than those for medical reasons in the past 12 months? N o M iscellaneous: C affeine: yes, frequency:. Exercise: no. Marital status: . D rug/Alcohol: A TITO-C (Standard) D id you have a drink containing alcohol in the past year? Y es H ow often did you have a drink containing alcohol in the past year? M onthly or less (1 point) H ow many drinks did you have on a typical day when you were drinking in the past year? 1 or 2 drinks (0 point) H ow often did you have six or more drinks on one occasion in the past year? N ever (0 point) P oints 1 I nterpretation N egative * Medications: T aking Losartan Potassium , Taking Aspirin , Taking Adderall , Taking Lipitor , Taking Lexapro 20 MG Tablet 1 tablet Orally Once a day , Medication List reviewed and reconciled with the patient * Allergies: N .K.D.A. Objective: * Vitals: Assessment: Plan: * Treatment: * Images: * The named appointment provid er may or may not be the originator of this progress note, and it is not deemed complete until electronically signed by the appointment provider. Sign off status: Pending * Provider: Antonette White DPM Date: Generated for Jessie quinn/Raul/Mela on: 11/22/2024 09:05 AM EST
--- NOTE | 2025-09-21 08:46 | MHC.PC.OV ---
Vital Signs 09/21/25 08:51 Height 6 ft Weight 107.955 kg BMI 32.3 BP 128/76 Respiration 14 Pulse 71 Pulse Source Pulse Oximeter Temp 96.4 F L Temp Source Temporal Artery Scan Pulse Oximetry (%) 99 Oxygen Delivery Method Room Air Intake Visit Reasons: 1 mo f/u nasal issues [employer] [place] [employer] Required: No Accompanied by: Self / Same As Patient Allergies acetaminophen (From Percocet) Allergy (Verified 09/21/25 08:46) Nightmare oxycodone Adverse Reaction (Mild, Verified 09/21/25 08:46) Nausea and Vomiting Medication List - Last Reconciled 09/21/25 by MATHIEU Gaines Adderall XR 20 mg (dextroamphetamine-amphetamine) 20 mg PO DAILY NS aspirin 81 mg PO DAILY atorvastatin (Lipitor) 20 mg PO DAILY bupropion HCl XL (Wellbutrin XL) 150 mg PO QAM fluorouracil 5% 1 appl topical BID hydroxyzine HCl 25 mg PO TID PRN Lexapro (escitalopram oxalate) 20 mg PO DAILY NS losartan 1 tab PO DAILY omega-3 fatty acids 1,000 mg PO DAILY valacyclovir (Valtrex) 2,000 mg (2 x 1 gram) PO BID Tobacco use date assessed: 03/26/25 Dental Screening Dental Screen Date: 12/19/24 HPI HPI Comments History of Present Illness Details 64-year-old male presents to the office today for follow up. Thoracic back strain-had been following with physical therapy with good improvement following an injury to the thoracic back while at work. He is not on workman's comp but rather is on PFML. He is currently laid off. Looking for a new referral to physical therapy which he needs to schedule. He does still feel that this is medically necessary given ongoing symptoms. Referral has been placed as he needs new authorization and has appointment scheduled for 07/29 for PT and OT Scalp dermatitis- following with registered nurse nursery who prescribed fluorouracil to use of the scalp. Due to the number of lesions, unable to freeze each of these off ADHD/depression- has been on Adderall as well as Lexapro with good management of his symptoms. However, he has been taking Lexapro 20 mg twice daily which we did discuss is supratherapeutic. He has had several episodes where he has felt worthless with significant anxiety. His is currently undergoing cancer treatments in [place]. His truck broke down. Due to his situation at work, he states that he has not been paid in several months. [place] like he was having having ?nervous breakdown?. Does deny any SI. Hypertension-blood pressure slightly elevated 128/76. Compliant with losartan Hyperlipidemia-on atorvastatin 20 mg daily. Last LDL 62, at goal ROS: see hpi EXAM: Constitutional - Awake and Alert, No apparent distress Eyes - PERRL Cardiovascular - S1S2, RRR, No edema Respiratory - Normal lung expansion, Normal respiratory effort, No respiratory distress, CTA bilaterally Extremities - no calf tenderness bilaterally, no swelling MSK-no midline tenderness to palpation except over L5-S1. No paraspinal tenderness to palpation. 5/5 strength in the bilateral lower extremities with symmetric 2+ patellar reflexes Skin - Warm/Dry Neurological - Alert & oriented x3 Psychological - tearful [facility] Medical History (Updated 09/21/25 @ 11:17 by MATHIEU Gaines) Oral herpes Obesity (BMI 30-39.9) Chronic low back pain SI (sacroiliac) joint dysfunction TRESSA (obstructive sleep apnea) Rotator cuff arthropathy of right shoulder Depression Diverticulitis Hypercholesteremia Depression Hypertension Surgical History H/O colonoscopy (~02/10/22) History of right inguinal hernia repair History of elbow surgery Family History Father Bladder cancer Myocardial infarct Paternal Grandmother Myocardial infarct Social History Housing: House Alcohol intake: never Patient Tobacco Use Status: Never used Tobacco e-Cigarette/Vaping Use: Never Used service: No Current occupational status: employed 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 Kamaljit Hood, Danielle Aaron, Fritz Lind and colleagues, with an educational keo from [employer]. Physical exam (Primary Care) Vital Signs: Last Vital Signs Temp 96.4 F L 09/21/25 08:51 Pulse 71 09/21/25 08:51 Resp 14 09/21/25 08:51 BP 128/76 09/21/25 08:51 Pulse Ox 99 09/21/25 08:51 Oxygen Delivery Method Room Air 09/21/25 08:51 BMI result Body Mass Index 32.3 Tobacco/Smoking Status: Tobacco use Status Tobacco use date assessed 03/26/25 09/21/25 08:48 Patient Tobacco Use Status Never used Tobacco 09/21/25 08:48 e-Cigarette/Vaping Use Never Used 09/21/25 08:48 Thrive Assessment: Date of Thrive Assessment Date Thrive assessed 03/10/25 09/21/25 08:48 Coding Level of Care Code Est Pt Level 4 (21167) Add On Problem Visit Only Diagnoses Major depressive disorder in partial remission, unspecified whether recurrent F32.4 Depression Type: major depressive disorder Major depression recurrence: unspecified whether recurrent Active/Remission status: in partial remission Primary hypertension I10 Hypertension type: primary hypertension Obesity (BMI 30-39.9) E66.9 Spasm of thoracic back muscle M62.830 Lumbosacral pain M54.50 Assessment & Plan Assessment & Plan (1) Depression: Code(s): F32.9 - Major depressive disorder, single episode, unspecified Category: Medical Qualifiers: Depression Type: major depressive disorder Major depression recurrence: unspecified whether recurrent Active/Remission status: in partial remission Qualified Code(s): F32.4 - Major depressive disorder, single episode, in partial remission Plan: Improved. Discussed that taking Lexapro 20 mg twice daily is in excess. Will lower dose to 20 mg daily and add bupropion 150 mg XL. Counseled on dosing and side effects. I do still think he would benefit from a counselor. We will follow-up in 1 month (2) Hypertension: Code(s): I10 - Essential (primary) hypertension Category: Medical Qualifiers: Hypertension type: primary hypertension Qualified Code(s): I10 - Essential (primary) hypertension Plan: Controlled. Continue losartan (3) Obesity (BMI 30-39.9): Comment: HE IS MODERATELY OBESE CURRENT BMI 32 Code(s): E66.9 - Obesity, unspecified Category: Medical Plan: Recommend regular exercise as this will not only help with weight but also mood. He is referred to physical therapy to help improve functional ability (4) Spasm of thoracic back muscle: Code(s): M62.830 - Muscle spasm of back Category: Medical Plan: Referred back to physical therapy (5) Lumbosacral pain: Code(s): M54.50 - Low back pain, unspecified Category: Medical Plan: Recommend ibuprofen, Tylenol as needed. Can also use topical analgesics. Gentle stretches at home. Will follow-up with physical therapy and occupational therapy next week Plan Follow-up in the office in 1 month as scheduled Orders: Orders PT Evaluation and Treatment Today G89.29 - Other chronic pain, M53.3 - Sacrococcygeal disorders, not elsewhere classified, M54.50 - Low back pain, unspecified, M62.830 - Muscle spasm of back Medications: New bupropion HCl XL (Wellbutrin XL) 150 mg PO QAM 90 tabs 1RF
[2025-09-21 08:51] VITALS: BP 128/76; PULSE 71; RESP 14; TEMP 35.8; O2SAT 99; BMI 32.3
--- OUTSIDE RECORDS SUMMARY | 2025-09-21 09:05 | XMS_ITS | Patient Health Record ---
Author Organization [facility] Address [address] [place] [address] Care Team Providers Care Resident Programs Assistant Name Role Phone Rebecca Aguirre Primary Care Provider Rebecca Hansen Unavailable [phone] Allergies No Known Allergies Reason For Referral [...] Negative Encounters Encounter Location Date Provider Diagnosis [facility] [address] [place] [address] 07/20/2025 Rebecca [facility] [address] [place] [address] 08/26/2025 Rebecca White Plan Of Treatment Next Appt Details Provider Name:Rebecca Sharpe dayday, 11/05/2025 08:30:00 AM, [address] [facility], [place], [address], Insurance Providers Payer Name Payer Address Payer Phone Subscriber Number Group Number Insured Name Patient Relationship to Insured Coverage Start Date Coverage End Date [facility] [address] [place] [address] [id number] Luis Auguste Self - patient is the insured Medical (General) History Medical History History ICD Code Back,Hip,and Knee pain CAD (Cholesterol) Depression Diverticulosis Gout Surgical History Surgery Date(Month/Year) elbow sx, left hernia
--- OUTSIDE RECORDS SUMMARY | 2025-09-21 09:05 | XMS_ITS | Patient Health Record ---
Author Organization [facility] Address [address] [facility] [place] [address] Care Team Providers Care Chief Lock Tender Operator Name Role Phone Macario Boateng Unavailable [phone] Reason For Referral No Information Problems Problem Type SNOMED Code ICD Code Onset Dates Problem Status W/U Status Risk Notes Problem Pain of left knee joint (finding) (525777351545 107) Pain in left knee (M25.562) Active confirmed Alexandr Problem Low back pain (853351745) Low back pain (M54.5) Active confirmed Alexandr Plan Of Treatment No Information
--- OUTSIDE RECORDS SUMMARY | 2025-09-21 09:06 | XMS_ITS | Patient Health Record ---
Author Organization [facility] Address [address] [place] [address] Care Team Providers Care Spa Associate Name Role Phone Cele (RETIRED) Roger MARIE [...] Status Risk Notes Problem Diverticulitis of colon (777547434) Diverticulitis of large intestine without perforation or abscess without bleeding (K57.32) Active confirmed Problem Diverticulitis (35483879) Diverticulitis (K57.92) Active confirmed Plan Of Treatment Future Test Test Name Order Date COLONOSCOPY 07/07/2013 COLONOSCOPY 01/11/2022 Insurance Providers Payer Name Payer Address Payer Phone Subscriber Number Group Number Insured Name Patient Relationship to Insured Coverage Start Date Coverage End Date [facility] [address] [place] [phone] [id number] LAYO VERAS Self - patient is the insured Medical (General) History Medical History History ICD Code Hypertension diverticulitis Hyperlipidemia Colonoscopy 11/14, hyperplast ic polyps, diverticulosis, internal hemorrhoids, ten-year followup Depression Surgical History Surgery Date(Month/Year) hernia repair elbow surgery-left Hospitalization History Reason Date(Month/Year) diverticulitis-[facility] [place]
--- OUTSIDE RECORDS SUMMARY | 2025-09-21 09:06 | XMS_ITS | Clinical Summary ---
Author Organization [facility] Address [facility] [address] [place] [address] Phone Care Team Providers Care Director Script Name Role Phone Roger Oakley MD Primary [...] Medical Devices Not on file Insurance [facility] [place] [address] [place] [address] [place] [address] [place] [address] [place] [address] [place] [address] [place] [address] [place] [address] [place] [place] [address] PPO PPO PPO PPO Care Teams Director Script Relationship Specialty Start Date End Date Roger Oakley MD [address] [place] [address] Dr Zacarias, JOVANA [address] PCP - General 07/19/17 Additional Source Comments The information contained in this document represents components of the legal health record. It is not the complete legal health record.[facility]
== END 2025-09-21 09:20 | disposition home or self-care (01) ==
LOC: HO.HMCHD 08:42
PROVIDERS: PCP Physician Assistant; Visit Provider Physician Assistant
DX: F32.4 Major depressive disorder, single episode, in partial remission (principal); I10 Essential (primary) hypertension; E66.9 Obesity, unspecified; M62.830 Muscle spasm of back; M54.50 Low back pain, unspecified